=== PATIENT | female | born 1935 | race Caucasian/White ===

== ENCOUNTER → 2018-02-28 | Outpatient (CLI) | payer MEDICARE ==
[~2018-02-28] MED LIST: ACET-2031 PO; ADV100/50 INH; ALB6.7R INH; AMLO-1 PO; AMLO-110 PO; ASPE325 PO; ASPI81TA86 PO; AZIT-101 PO; BUDE10.25 IH; CEFU250 PO; CETI10CA8 PO; CHLOR25 FT; ESTR-32 PO; ESTRADIOL; GUAI600T34 PO; GUALA600 PO; IRO150 PO; LEVA15HF6 IH; LEVO50TA80 PO; LORA10CA3 PO; LOSA100T68 PO; LOSA50TA72 PO; LOVA10TA63 PO; LOVA40TA89 PO; MONT10TA PO; OXYC-966 PO; OXYGEN INH; PAN40 PO; PRED-314 PO; PREDNISONE PO; ROBC PO; TIO18R IH; TURM500C7 PO; VERA180C10 PO; ZITHROMAX; [UNRECOGNIZED DRUG - CODE] OP; [UNRECOGNIZED DRUG - CODE] PO
== END ==
LOC: US 07:05
PROVIDERS: ATTEND Internal Medicine Cardiovascular Disease
DX: I51.7 Cardiomegaly (principal); I34.0 Nonrheumatic mitral (valve) insufficiency; Q21.0 Ventricular septal defect; E66.9 Obesity, unspecified
CPT/HCPCS: 93306

== ENCOUNTER → 2018-03-11 | Outpatient (CLI) | payer MEDICARE ==
--- NOTE | 2018-03-11 15:23 | RADIOLOGY IMAGING REPORT ---
FACILITY: PATIENT NAME: Kaylee Almendarez : 1935 MR: [id number] V: [id number] EXAM DATE: ORDERING PHYSICIAN: HARINI LEE TECHNOLOGIST: Location: [facility] - [place] Patient: Kaylee Almendarez : 1935 Visit/Account:[id number] Date of Sevice: 03/11/2018 CHEST PA AND LAT Indication: COPD Comparison: Chest x-ray 11/24/2014. Findings: Lungs: There is mild hyperinflation and flattening the diaphragms. There is a benign calcified granul tom in the right lower lobe, best seen on the lateral image. The lungs are otherwise clear. Mediastinum/pulmonary vasculature: Heart size and pulmonary vasculature are normal. Bones/soft tissues: There is an old rib fracture, posterior right sixth rib. IMPRESSION: 1. Findings consistent with COPD. 2. Benign calcified granuloma right lower lobe. Report Dictated By: Gary Henriquez at 03/11/2018 2:57 PM Report E-Signed By: Gary Henriquez at 03/11/2018 3:19 PM WSN:[id number]
== END ==
LOC: RAD 13:19
PROVIDERS: ATTEND Internal Medicine
DX: J44.9 Chronic obstructive pulmonary disease, unspecified (principal); R91.8 Other nonspecific abnormal finding of lung field
CPT/HCPCS: 71046

== ENCOUNTER 2018-04-21 15:54 | Emergency (ER) | payer MEDICARE ==
--- NOTE | 2018-04-21 16:05 | ER Report ---
History and Physical Time Seen By MD: 16:04 HPI/ROS CHIEF COMPLAINT: Right shoulder pain HISTORY OF PRESENT ILLNESS: This is an 82-year-old female presents to the emergency department for right shoulder pain. Patient states that she developed some right shoulder pain over the last couple of days, has been taking large amounts of ibuprofen, noticed a large bruise to the right shoulder unsure how this developed. Patient is unsure if she fell has no recollection of falling. Denies headaches or visual changes. Denies chest pain no increased shortness of breath. Patient has a history of COPD, on continuous oxygen. Patient has had steroid injections in the right shoulder, but nothing recent. She has no recollection of a traumatic event. REVIEW OF SYSTEMS: Constitutional: No fever, no chills. Eyes: No discharge. ENT: No sore throat. Cardiovascular: No chest pain, no palpitations. Respiratory: No cough, no shortness of breath. Gastrointestinal: No abdominal pain, no vomiting. Genitourinary: No hematuria. Musculoskeletal: As above. Skin: As above. Neurological: As above. Allergies: Coded Allergies: lactose (Verified Adverse Reaction, Mild, DIARRHEA, 04/21/16) Home Meds Reported Medications Turmeric Root Extract (TURMERIC) 500 Mg Capsule, 500 MG PO DAILY, CAPSULE 04/28/16 Cetirizine Hcl (ZYRTEC) 10 Mg Capsule, 10 MG PO QDAY Y for ALLERGY SYMPTOMS, CAPSULE 04/28/16 Verapamil HCl (Verapamil Sr) 180 Mg Cap24h.pel, 180 MG PO HS 04/21/16 Oxycodone Hcl (ROXICODONE) 15 Mg Tablet, 10 MG PO 04/21/16 Montelukast Sodium (SINGULAIR) 10 Mg Tablet, 1 TAB PO QDAY, TAB 04/21/16 Lovastatin (LOVASTATIN) 40 Mg Tablet, 40 MG PO HS 04/21/16 Losartan Potassium (LOSARTAN POTASSIUM) 50 Mg Tablet, 50 MG PO QDAY 04/21/16 Chlorthalidone (CHLORTHALIDONE) 25 Mg Tab, 25 MG FT, TAB 04/21/16 Budesonide/Formoterol Fumarate (SYMBICORT 80-4.5 MCG INHALER) 10.2 Gm Hfa.aer.ad , 2 PUFF IH BID 04/21/16 Aspirin (ASPIRIN EC) 81 Mg Tablet.dr, 81 MG PO QDAY, TAB 04/21/16 Albuterol Sulfate (PROVENTIL HFA) 6.7 Gm Inh, 1-2 PUFF INH Q4H, INH 04/21/16 Oxygen (Oxygen) 2 L Inha, 2 L INH PRN 12/20/12 Levothyroxine Sodium (Levothyroxine Sodium) 50 Mcg Tablet, 50 MCG PO QAM, 0 Refills 05/02/09 Past Medical/Surgical History The patient has a past medical and surgical history of difficulties remembering things, hypertension, hypercholesterolemia, COPD, continuous oxygen, colonoscopy 3, stress incontinence, D&C, arthritis, fractures, wears glasses, hard of hearing, definite in left ear, bladder sling, tubal ligation, cataract surgery. Reviewed Nurses Notes: Yes Hx Smoking: Yes Smoking Status: Former Smoker Hx Substance Use Disorder: No Hx Alcohol Use: Yes Constitutional Vital Sign - Last 24 Hours 04/21/18 04/21/18 04/21/18 04/21/18 16:07 16:10 16:24 16:30 Temp 97.9 Pulse 67 69 Resp 28 B/P (MAP) 173/103 (126) 173/103 147/81 (103) Pulse Ox 95 97 O2 Delivery Room Air 04/21/18 04/21/18 04/21/18 04/21/18 16:54 17:00 17:05 17:30 Pulse ? B/P (MAP) ???/??? (621) ???/??? (166) 04/21/18 04/21/18 04/21/18 04/21/18 17:35 17:42 17:42 18:00 Pulse 66 59 Resp 19 B/P (MAP) ???/??? (4996) Pulse Ox 96 97 O2 Delivery Nasal Cannula O2 Flow Rate 3.0 04/21/18 04/21/18 04/21/18 04/21/18 18:05 18:11 18:30 18:35 Pulse 60 61 B/P (MAP) 135/57 (83) 132/62 (85) Pulse Ox 96 95 04/21/18 04/21/18 04/21/18 04/21/18 18:40 18:55 19:00 19:10 Pulse ??? 64 67 B/P (MAP) 126/65 (85) Pulse Ox 96 95 95 7/29/18 7/29/18 19:25 19:30 Pulse ??? B/P (MAP) ???/??? (4651) Physical Exam General Appearance: The patient is alert, has no immediate need for airway protection and no signs of toxicity, appears anxious and uncomfortable. Eyes: Pupils equal and round no pallor or injection. EOMs intact. ENT, Mouth: Mucous membranes are moist. Respiratory: There are no retractions, lungs are clear to auscultation. Cardiovascular: Regular rate and rhythm, no murmurs, clicks or rubs. Gastrointestinal: Abdomen is soft and non tender, no masses, bowel sounds normal. Neurological: Alert and oriented 4. Moving all extremities. Following all commands. No focal neuro deficits. Skin: Warm and dry, no rashes. There is a large purplish contusion to the right shoulder into the right bicep. Pain to the right shoulder and proximal humerus on palpation, no crepitus, step-offs or obvious deformities. Musculoskeletal: Neck is supple non tender. Extremities are nontender, nonswollen and have full range of motion. DIFFERENTIAL DIAGNOSIS: After history and physical exam differential diagnosis was considered for contusion, shoulder dislocation and shoulder fracture, subdural bleed and cervical spine fracture. Medical Decision Making Data Points Result Diagram: 04/21/18 1723 04/21/18 1723 Laboratory Hematology Test 04/21/18 17:23 Red Blood Count 3.51 M/uL (4.17-5.56) Mean Corpuscular Volume 98.9 fL (80.0-96.0) Mean Corpuscular Hemoglobin 33.9 pg (26.0-33.0) Mean Corpuscular Hemoglobin Concent 34.3 g/dL (32.0-36.0) Red Cell Distribution Width 13.9 % (11.5-14.5) Mean Platelet Volume 8.6 fL (7.2-11.1) Neutrophils (%) (Auto) 70.9 % (39.4-72.5) Lymphocytes (%) (Auto) 18.0 % (17.6-49.6) Monocytes (%) (Auto) 7.4 % (4.1-12.4) Eosinophils (%) (Auto) 2.9 % (0.4-6.7) Basophils (%) (Auto) 0.8 % (0.3-1.4) Nucleated RBC Relative Count (auto) 0.0 /100WBC Neutrophils # (Auto) 5.7 K/uL (2.0-7.4) Lymphocytes # (Auto) 1.4 K/uL (1.3-3.6) Monocytes # (Auto) 0.6 K/uL (0.3-1.0) Eosinophils # (Auto) 0.2 K/uL (0.0-0.5) Basophils # (Auto) 0.1 K/uL (0.0-0.1) Nucleated RBC Absolute Count (auto) 0.00 K/uL Sodium Level 139 mmol/L (137-145) Potassium Level 5.1 mmol/L (3.5-5.0) Chloride Level 104 mmol/L (98-107) Carbon Dioxide Level 24 mmol/L (22-31) Blood Urea Nitrogen 36 mg/dl (7-18) Creatinine 1.70 mg/dl (0.52-1.04) Glomerular Filtration Rate Calc 28.8 Random Glucose 108 mg/dl (75-110) Calcium Level 8.7 mg/dl (8.4-10.2) Total Bilirubin 0.4 mg/dl (0.2-1.3) Aspartate Amino Transf (AST/SGOT) 18 U/L (0-35) Alanine Aminotransferase (ALT/SGPT) 22 U/L (0-56) Alkaline Phosphatase 81 U/L (0-126) Total Protein 7.1 g/dl (6.3-8.2) Albumin 3.9 g/dl (3.5-5.0) Chemistry Test 04/21/18 17:23 White Blood Count 8.0 k/uL (4.5-11.0) Red Blood Count 3.51 M/uL (4.17-5.56) Hemoglobin 11.9 g/dL (12.0-16.0) Hematocrit 34.7 % (34.0-47.0) Mean Corpuscular Volume 98.9 fL (80.0-96.0) Mean Corpuscular Hemoglobin 33.9 pg (26.0-33.0) Mean Corpuscular Hemoglobin Concent 34.3 g/dL (32.0-36.0) Red Cell Distribution Width 13.9 % (11.5-14.5) Platelet Count 197 K/uL (150-450) Mean Platelet Volume 8.6 fL (7.2-11.1) Neutrophils (%) (Auto) 70.9 % (39.4-72.5) Lymphocytes (%) (Auto) 18.0 % (17.6-49.6) Monocytes (%) (Auto) 7.4 % (4.1-12.4) Eosinophils (%) (Auto) 2.9 % (0.4-6.7) Basophils (%) (Auto) 0.8 % (0.3-1.4) Nucleated RBC Relative Count (auto) 0.0 /100WBC Neutrophils # (Auto) 5.7 K/uL (2.0-7.4) Lymphocytes # (Auto) 1.4 K/uL (1.3-3.6) Monocytes # (Auto) 0.6 K/uL (0.3-1.0) Eosinophils # (Auto) 0.2 K/uL (0.0-0.5) Basophils # (Auto) 0.1 K/uL (0.0-0.1) Nucleated RBC Absolute Count (auto) 0.00 K/uL Glomerular Filtration Rate Calc 28.8 Calcium Level 8.7 mg/dl (8.4-10.2) Total Bilirubin 0.4 mg/dl (0.2-1.3) Aspartate Amino Transf (AST/SGOT) 18 U/L (0-35) Alanine Aminotransferase (ALT/SGPT) 22 U/L (0-56) Alkaline Phosphatase 81 U/L (0-126) Total Protein 7.1 g/dl (6.3-8.2) Albumin 3.9 g/dl (3.5-5.0) EKG/Imaging EKG Interpretation 12 lead EKG: Time of EKG 1903. Rhythm: Sinus bradycardia, ventricular rate 59 bpm. [place]: normal QRS: normal ST segments: No ST depression or elevation identified. No indication of potassium toxicity. No significant changes from the 01/09/[address] cervical spine without IV contrast HISTORY: Fall. COMPARISON: None. TECHNIQUE: Axial images were obtained from the skull base through the upper thoracic spine without IV contrast administration. Coronal and sagittal reformatted images were obtained from the axial source data. One of the following dose optimization techniques was utilized in the performance of this exam: Automated exposure control; adjustment of the mA and/ or kV according to the patient's size; or use of an iterative reconstruction technique. Specific details can be referenced in the facility's radiology CT exam operational policy. FINDINGS: Alignment: Remaining of the normal cervical lordosis, likely related to degenerative change. Cranio-cervical junction: Negative. Vertebral bodies: Negative. Posterior elements: Negative. Hardware: None. Disc Spaces: Multilevel moderate to advanced degenerative disc disease and facet arthropathy with mild/moderate multifocal foraminal narrowing Soft tissues: Negative. Visualized upper chest: Emphysematous changes within the visualized lung apices. IMPRESSION: 1. No acute fracture of the cervical spine. 2. Multilevel moderate to advanced degenerative changes within the cervical spine. Report Dictated By: Wiley Petersen MD at 04/21/2018 5:28 PM Report E-Signed By: Wiley Petersen MD at 04/21/2018 5:30 PM WSN:[email or web address] Location: [facility] Patient: Kaylee Almendarez : 1935 Visit/Account:[id number] Date of Sevice: 04/21/2018 CT BRAIN WITHOUT CONTRAST CLINICAL INDICATION: Fall with question will head injury. COMPARISON: No priors TECHNIQUE: Contiguous axial CT images of the brain were obtained without IV contrast. Sagittal and coronal reformatted images were also performed. One of the following dose optimization techniques was utilized in the performance of this exam: Automated exposure control; adjustment of the mA and/ or kV according to the patient's size; or use of an iterative reconstruction technique. Specific details can be referenced in the facility's radiology CT exam operational policy. RESULT: BRAIN: Prominence of the ventricles and sulci is consistent with atrophy. There are areas of low attenuation in the periventricular and subcortical white matter which are nonspecific, but suggestive of chronic microvascular ischemic change. The brainstem and cerebellum appear normal. The basilar cisterns appear normal. There is no mass, acute infarct, hemorrhage or shift of midline. Vascular atherosclerotic calcifications are present. PARANASAL SINUSES & MASTOIDS: Well aerated. SKULL BASE & CRANIUM: Visualized osseous structures are intact. SOFT TISSUES: Mild edema/hematoma within the lower frontal soft tissues. Otherwise negative.. IMPRESSION: 1. No acute findings. 2. Mild edema/hematoma within the lower frontal soft tissues 3. Findings of advanced chronological age. Report Dictated By: Wiley Petersen MD at 04/21/2018 5:23 PM Report E-Signed By: Wiley Petersen MD at 04/21/2018 5:26 PM WSN:[id number] Location: [facility] Patient: Kaylee Almendarez : 1935 Visit/Account:[id number] Date of Sevice: 04/21/2018 2 views right humerus Indication: Comparison: None Available FINDINGS: There is no evidence of fracture, dislocation, or acute osseous abnormality of the right humerus. There is no focal soft tissue abnormality. No evidence of radiopaque foreign body. IMPRESSION: No acute osseous abnormality of the right humerus Report Dictated By: Wiley Petersen MD at 04/21/2018 5:32 PM Report E-Signed By: Wiley Petersen MD at 04/21/2018 5:33 PM WSN:[id number] Location: [facility] Patient: Kaylee Almendarez : 1935 Visit/Account:[id number] Date of Sevice: 04/21/2018 3 views right shoulder Indication: Right shoulder pain and bruising. Comparison: Unavailable Findings: There is no acute fracture-dislocation of the right glenohumeral joint. Mild/moderate degenerative changes of the right glenohumeral and acromial clavicular joints. There is a chronic healed right rib fracture. Calcification within the aortic knob. IMPRESSION: 1. No acute osseous abnormality right shoulder. Report Dictated By: Wiley Petersen MD at 04/21/2018 5:30 PM Report E-Signed By: Wiley Petersen MD at 04/21/2018 5:32 PM WSN:[id number] ED Course/Re-evaluation Clinical Indication for ER IV: Hydration, IV Access ED Course The patient was admitted to room. A history and physical were obtained. Differential diagnoses were considered. An IV was started. A CBC, CMP were obtained. Chemistries showing potassium 5.1, V1 36, creatinine 1.7. The patient states she has been taking a lot of NSAIDs lately, patient states that she's had issues with her kidneys in the past secondary to ingestion of NSAIDs. I did tell the patient to stop taking NSAIDs and she can take Tylenol as needed for pain. With the potassium of 5.1 EKG showing no changes from December 2012 EKG. X- ray of the right humerus right shoulder were negative for any acute osseous abnormalities. CT of the head and neck were negative for any acute findings. I did review these results with the patient and her . I did tell them that the shoulder pain could be the known arthritis in her shoulder. The patient was given 4 mg IV morphine, 4 mg IV Zofran. Continue to have pain and was given 50 g IV fentanyl, continued to have pain another 50 g IV fentanyl did seem to improve patient's discomfort. Patient was placed in a sling, patient states that after the sling was placed she did have significant relief from her discomfort. I did recommend that the patient follows up with [facility] and/or her primary care provider within one week for reevaluation and possible injection of the right shoulder. The patient was in agreement with this plan care and discharged home. Decision to Disposition Date: Apr 21, 2018 Decision to Disposition Time: 19:27 Depart Departure Latest Vital Signs Vital Signs Date Time Temp Pulse Resp B/P (MAP) Pulse Ox O2 Delivery O2 Flow Rate FiO2 04/21/18 19:30 ???/??? (1665) 04/21/18 19:25 ??? 04/21/18 19:10 95 04/21/18 17:42 Nasal Cannula 3.0 04/21/18 17:42 19 04/21/18 16:10 97.9 Impression: Primary Impression: Right shoulder pain Additional Impression: Contusion of right shoulder Condition: Improved Disposition: HOME OR SELF-CARE Referrals: FRANCI ECHEVARRIA MD (PCP) Patient Instructions: Contusion in Adults (ED), Shoulder Pain (ED) Additional Instructions: The right shoulder and upper arm x-rays were negative for any acute findings. The head and neck CAT scans were negative for any acute findings. Drink plenty of water. Get plenty of rest. Wear the sling for comfort. A voided NSAIDs until you follow up with your primary care provider. Take 650 mg of Tylenol every 8 hours as needed for pain. Follow-up with [facility] or your primary care provider within one week for reevaluation of the right shoulder. Return to the emergency department for any other concerns or worsening symptoms. Problem Qualifiers Primary Impression: Right shoulder pain Chronicity: unspecified Qualified Codes: M25.511 - Pain in right shoulder Additional Impression: Contusion of right shoulder Encounter type: initial encounter Qualified Codes: S40.011A - Contusion of right shoulder, initial encounter TEENA DIXON [employer] DEVELOPMENT CONSULTANT-BC Apr 21, 2018 16:05
[2018-04-21] MEDS ORDERED: ONDANSETRON 4 MG/2 ML VIAL IVP ONE (16:10)
[2018-04-21] MEDS ORDERED: MORPHINE 4 MG/ML SDV IVP ONE (16:10)
[2018-04-21] MEDS ORDERED: fentaNYL CITR 100 MCG/2 ML AMP IVP ONE ×2 (17:20→18:05)
--- NOTE | 2018-04-21 17:29 | RADIOLOGY IMAGING REPORT ---
FACILITY: [facility] [place] PATIENT NAME: Kaylee Almendarez : 1935 MR: [id number] V: [id number] EXAM DATE: ORDERING PHYSICIAN: TEENA DIXON TECHNOLOGIST: Location: [facility] Patient: Kaylee Almendarez : 1935 Visit/Account:[id number] Date of Sevice: 04/21/2018 CT BRAIN WITHOUT CONTRAST CLINICAL INDICATION: Fall with question will head injury. COMPARISON: No priors TECHNIQUE: Contiguous axial CT images of the brain were obtained without IV contrast. Sagittal and co alyson reformatted images were also performed. One of the following dose optimization techniques was utilized in the performance of this exam: Autom ated exposure control; adjustment of the mA and/or kV according to the patient's size; or use of an i terative reconstruction technique. Specific details can be referenced in the facility's radiology C T exam operational policy. RESULT: BRAIN: Prominence of the ventricles and sulci is consistent with atrophy. There are areas of low atte nuation in the periventricular and subcortical white matter which are nonspecific, but suggestive of chronic microvascular ischemic change. The brainstem and cerebellum appear normal. The basilar ciste rns appear normal. There is no mass, acute infarct, hemorrhage or shift of midline. Vascular atherosc lerotic calcifications are present. PARANASAL SINUSES & MASTOIDS: Well aerated. SKULL BASE & CRANIUM: Visualized osseous structures are intact. SOFT TISSUES: Mild edema/hematoma within the lower frontal soft tissues. Otherwise negative.. IMPRESSION: 1. No acute findings. 2. Mild edema/hematoma within the lower frontal soft tissues 3. Findings of advanced chronological age. Report Dictated By: Wiley Petersen MD at 04/21/2018 5:23 PM Report E-Signed By: Wiley Petersen MD at 04/21/2018 5:26 PM WSN:[id number]
--- NOTE | 2018-04-21 17:33 | RADIOLOGY IMAGING REPORT ---
FACILITY: [facility] PATIENT NAME: Kaylee Almendarez : 1935 MR: [id number] V: [id number] EXAM DATE: ORDERING PHYSICIAN: TEENA DIXON TECHNOLOGIST: Location: [facility] Patient: Kaylee Almendarez : 1935 Visit/Account:[id number] Date of Sevice: 04/21/2018 EXAMINATION: CT cervical spine without IV contrast HISTORY: Fall. COMPARISON: None. TECHNIQUE: Axial images were obtained from the skull base through the upper thoracic spine without I V contrast administration. Coronal and sagittal reformatted images were obtained from the axial [facility] e data. One of the following dose optimization techniques was utilized in the performance of this exam: Autom ated exposure control; adjustment of the mA and/or kV according to the patient's size; or use of an i terative reconstruction technique. Specific details can be referenced in the facility's radiology C T exam operational policy. FINDINGS: Alignment: Remaining of the normal cervical lordosis, likely related to degenerative change. Cranio-cervical junction: Negative. Vertebral bodies: Negative. Posterior elements: Negative. Hardware: None. Disc Spaces: Multilevel moderate to advanced degenerative disc disease and facet arthropathy with mil d/moderate multifocal foraminal narrowing Soft tissues: Negative. Visualized upper chest: Emphysematous changes within the visualized lung apices. IMPRESSION: 1. No acute fracture of the cervical spine. 2. Multilevel moderate to advanced degenerative changes within the cervical spine. Report Dictated By: Wiley Petersen MD at 04/21/2018 5:28 PM Report E-Signed By: Wiley Petersen MD at 04/21/2018 5:30 PM WSN:[id number]
--- NOTE | 2018-04-21 17:36 | RADIOLOGY IMAGING REPORT ---
FACILITY: [facility] PATIENT NAME: Kaylee Almendarez : 1935 MR: [id number] V: [id number] EXAM DATE: ORDERING PHYSICIAN: TEENA DIXON TECHNOLOGIST: Location: [facility] Patient: Kaylee Almendarez : 1935 Visit/Account:[id number] Date of Sevice: 04/21/2018 3 views right shoulder Indication: Right shoulder pain and bruising. Comparison: Unavailable Findings: There is no acute fracture-dislocation of the right glenohumeral joint. Mild/moderate degenerative changes of the right glenohumeral and acromial clavicular joints. There is a chronic healed right rib fracture. Calcification within the aortic knob. IMPRESSION: 1. No acute osseous abnormality right shoulder. Report Dictated By: Wiley Petersen MD at 04/21/2018 5:30 PM Report E-Signed By: Wiley Petersen MD at 04/21/2018 5:32 PM WSN:[id number]
--- NOTE | 2018-04-21 17:37 | RADIOLOGY IMAGING REPORT ---
FACILITY: [facility] PATIENT NAME: Kaylee Almendarez : 1935 MR: [id number] V: [id number] EXAM DATE: ORDERING PHYSICIAN: TEENA DIXON TECHNOLOGIST: Location: [facility] [place] Patient: Kaylee Almendarez : 1935 Visit/Account:[id number] Date of Sevice: 04/21/2018 2 views right humerus Indication: Comparison: None Available FINDINGS: There is no evidence of fracture, dislocation, or acute osseous abnormality of the right humerus. There is no focal soft tissue abnormality. No evidence of radiopaque foreign body. IMPRESSION: No acute osseous abnormality of the right humerus Report Dictated By: Wiley Petersen MD at 04/21/2018 5:32 PM Report E-Signed By: Wiley Petersen MD at 04/21/2018 5:33 PM WSN:[id number]
[2018-04-21] MEDS ORDERED: ALBUTEROL/IPRATROPIUM 3 ML NEB NEB ONE (17:40)
[2018-04-21 17:46] LABS: PLATELET COUNT, AUTOMATED 197 K/uL (150-450)
--- NOTE | 2018-04-21 19:11 | EKG ---
FACILITY: [facility] PATIENT NAME: CAROLE LEON : [id number] MR: [id number] V: [id number] EXAM DATE: ORDERING PHYSICIAN: TEENA DIXON TECHNOLOGIST: BRANDON Test Reason : HIGH K+ Blood Pressure : / mmHG Vent. Rate : 059 BPM Atrial Rate : 059 BPM P-R Int : 180 ms QRS Dur : 086 ms QT Int : 432 ms P-R-T Axes : 063 063 092 degrees QTc Int : 427 ms Sinus bradycardia Nonspecific T wave abnormality Abnormal ECG Confirmed by BRYAN COATES ([id number]) on 04/21/2018 9:23:34 PM Referred By: Confirmed By:BRYAN COATES
== END 2018-04-21 19:35 | disposition home or self-care (01) ==
LOC: ER 16:08
DX: S40.011A Contusion of right shoulder, initial encounter (principal); I10 Essential (primary) hypertension; E78.00 Pure hypercholesterolemia, unspecified; J44.9 Chronic obstructive pulmonary disease, unspecified; Z87.891 Personal history of nicotine dependence; Z79.899 Other long term (current) drug therapy; Z04.3 Encounter for examination and observation following other accident; W19.XXXA Unspecified fall, initial encounter
CPT/HCPCS: 36415; 70450; 72125; 73030; 73060; 85025; 93005; 94640; 96374; 96375; 96376; 99284; A4565; J2270; J2405; J3010; J7620; 82040; 82247; 82310; 82374; 82435; 82565; 82947; 84075; 84132; 84155; 84295; 84450; 84460; 84520

== ENCOUNTER → 2019-03-03 | Outpatient (CLI) | payer MEDICARE ==
[~2019-03-03] MED LIST changes: -LOSA50TA72 PO; +LOSA50TA80 PO
== END ==
LOC: RESP 01:11
PROVIDERS: ATTEND Internal Medicine Cardiovascular Disease
DX: I51.7 Cardiomegaly (principal); I34.0 Nonrheumatic mitral (valve) insufficiency
CPT/HCPCS: 93306

== ENCOUNTER 2019-04-14 09:35 | Inpatient (IN) | payer MEDICARE ==
[~2019-04-14 09:35] MED LIST changes: -FURO-45 PO; -IPRA3AMP10 INH; -MONT10TA4 PO
--- NOTE | 2019-04-14 10:02 | ER Report ---
History and Physical Time Seen By MD: 09:59 Hx. of Stated Complaint: FALL YESTERDAY - RIGHT HIP PAIN. WOKE UP WITH INCREASED SOB HPI/ROS CHIEF COMPLAINT: Fall, right-sided hip pain HISTORY OF PRESENT ILLNESS: Patient is an 83-year-old female here with complaints of fall, right-sided hip pain. Patient reportedly fell last night and has had difficulty ambulating ever since in spite of help. Patient was neurovascularly intact in distal extremity with good sensation and good capillary refill. Patient denies further injuries at this time. Patient is hemodynamically stable. REVIEW OF SYSTEMS: Constitutional: No fever, no chills. Eyes: No discharge. ENT: No sore throat. Cardiovascular: No chest pain, no palpitations. Respiratory: No cough, no shortness of breath. Gastrointestinal: No abdominal pain, no vomiting. Genitourinary: No hematuria. Musculoskeletal: Right hip and pelvic pain Skin: No rashes. Neurological: Neurovascular exam intact in the distal extremities, alert and oriented Allergies: Coded Allergies: lactose (Verified Adverse Reaction, Mild, DIARRHEA, 04/14/19) Home Meds Reported Medications Cetirizine Hcl (ZYRTEC) 10 Mg Capsule, 10 MG PO QDAY PRN for ALLERGY SYMPTOMS, CAPSULE 04/28/16 Verapamil HCl (Verapamil Sr) 180 Mg Cap24h.pel, 180 MG PO HS 04/21/16 Oxycodone Hcl (ROXICODONE) 15 Mg Tablet, 10 MG PO 04/21/16 Montelukast Sodium (SINGULAIR) 10 Mg Tablet, 1 TAB PO QDAY, TAB 04/21/16 Lovastatin (LOVASTATIN) 40 Mg Tablet, 40 MG PO HS 04/21/16 Losartan Potassium (LOSARTAN POTASSIUM) 50 Mg Tablet, 50 MG PO QDAY 04/21/16 Chlorthalidone (CHLORTHALIDONE) 25 Mg Tab, 25 MG FT, TAB 04/21/16 Budesonide/Formoterol Fumarate (SYMBICORT 80-4.5 MCG INHALER) 10.2 Gm Hfa.aer.ad, 2 PUFF IH BID 04/21/16 Aspirin (ASPIRIN EC) 81 Mg Tablet.dr, 81 MG PO QDAY, TAB 04/21/16 Albuterol Sulfate (PROVENTIL HFA) 6.7 Gm Inh, 1-2 PUFF INH Q4H, INH 04/21/16 Oxygen (Oxygen) 2 L Inha, 2 L INH PRN 12/20/12 Levothyroxine Sodium (Levothyroxine Sodium) 50 Mcg Tablet, 50 MCG PO QAM, 0 Refills 05/02/09 Discontinued Reported Medications Turmeric Root Extract (TURMERIC) 500 Mg Capsule, 500 MG PO DAILY, CAPSULE 04/28/16 Hx Smoking: Yes Smoking Status: Former Smoker Hx Substance Use Disorder: No Hx Alcohol Use: Yes Constitutional Vital Sign - Last 24 Hours 04/14/19 04/14/19 04/14/19 04/14/19 09:35 09:37 09:50 09:58 Temp 98.7 Pulse 70 72 75 Resp 13 16 53 B/P (MAP) 119/59 Pulse Ox 97 96 97 O2 Delivery Room Air O2 Flow Rate 2.0 04/14/19 04/14/19 04/14/19 04/14/19 10:05 10:20 10:35 10:50 Pulse 140 75 72 72 Resp 19 43 11 23 Pulse Ox 81 94 93 95 04/14/19 04/14/19 04/14/19 04/14/19 11:05 11:20 11:25 11:30 Pulse 71 70 72 Resp 20 18 19 B/P (MAP) ???/??? (5815) Pulse Ox 92 92 94 04/14/19 04/14/19 04/14/19 04/14/19 11:40 11:55 12:10 12:13 Pulse 71 ??? 72 Resp 13 39 B/P (MAP) 97/54 (68) Pulse Ox 93 82 91 04/14/19 04/14/19 04/14/19 04/14/19 12:20 12:25 12:30 12:45 Pulse 67 66 67 Resp 33 49 17 B/P (MAP) 90/52 (65) Pulse Ox 98 95 94 04/14/19 04/14/19 04/14/19 04/14/19 13:00 13:15 13:24 13:29 Pulse 66 64 66 Resp 17 20 20 B/P (MAP) 102/57 (72) Pulse Ox 94 96 94 04/14/19 04/14/19 04/14/19 04/14/19 13:30 13:44 13:59 14:00 Pulse 68 69 Resp 28 30 B/P (MAP) 95/50 (65) 99/52 (68) Pulse Ox 98 96 04/14/19 14:14 Pulse 67 Resp 37 Pulse Ox 94 Physical Exam General Appearance: The patient is alert, has no immediate need for airway protection and no signs of toxicity. Uncomfortable Eyes: Pupils equal and round no pallor or injection. ENT, Mouth: Mucous membranes are moist. Respiratory: There are no retractions, lungs are clear to auscultation. Cardiovascular: Regular rate and rhythm. Gastrointestinal: Abdomen is soft and non tender, no masses, bowel sounds normal. Neurological: Neurovascular exam intact in the distal extremity Skin: Warm and dry, no rashes. Musculoskeletal: Neck is supple non tender. Tenderness on palpation of the proximal right hip and right pelvis. DIFFERENTIAL DIAGNOSIS: After history and physical exam differential diagnosis was considered for fracture, contusion, dislocation, intra-abdominal injury. Medical Decision Making Data Points Result Diagram: 04/14/19 0949 04/14/19 0949 Laboratory Hematology Test 04/14/19 09:49 White Blood Count 9.2 k/uL (4.5-11.0) Red Blood Count 2.67 M/uL (4.17-5.56) L Hemoglobin 8.9 g/dL (12.0-16.0) *L Hematocrit 26.2 % (34.0-47.0) *L Mean Corpuscular Volume 98.3 fL (80.0-96.0) H Mean Corpuscular Hemoglobin 33.6 pg (26.0-33.0) H Mean Corpuscular Hemoglobin Concent 34.2 g/dL (32.0-36.0) Red Cell Distribution Width 15.0 % (11.5-14.5) H Platelet Count 276 K/uL (150-450) Mean Platelet Volume 8.3 fL (7.2-11.1) Neutrophils (%) (Auto) 83.5 % (39.4-72.5) H Lymphocytes (%) (Auto) 9.8 % (17.6-49.6) L Monocytes (%) (Auto) 6.0 % (4.1-12.4) Eosinophils (%) (Auto) 0.2 % (0.4-6.7) L Basophils (%) (Auto) 0.5 % (0.3-1.4) Nucleated RBC Relative Count (auto) 0.1 /100WBC Neutrophils # (Auto) 7.7 K/uL (2.0-7.4) H Lymphocytes # (Auto) 0.9 K/uL (1.3-3.6) L Monocytes # (Auto) 0.6 K/uL (0.3-1.0) Eosinophils # (Auto) 0.0 K/uL (0.0-0.5) Basophils # (Auto) 0.0 K/uL (0.0-0.1) Nucleated RBC Absolute Count (auto) 0.01 K/uL Chemistry Test 04/14/19 09:49 Sodium Level 138 mmol/L (137-145) Potassium Level 4.1 mmol/L (3.5-5.0) Chloride Level 100 mmol/L (98-107) Carbon Dioxide Level 29 mmol/L (22-31) Blood Urea Nitrogen 48 mg/dl (7-18) Creatinine 1.80 mg/dl (0.52-1.04) Glomerular Filtration Rate Calc 26.9 Random Glucose 107 mg/dl (75-110) Calcium Level 9.0 mg/dl (8.4-10.2) Total Bilirubin 0.8 mg/dl (0.2-1.3) Aspartate Amino Transf (AST/SGOT) 29 U/L (0-35) Alanine Aminotransferase (ALT/SGPT) 40 U/L (0-56) Alkaline Phosphatase 111 U/L (0-126) Troponin I 0.034 ng/ml Total Protein 6.1 g/dl (6.3-8.2) Albumin 3.2 g/dl (3.5-5.0) EKG/Imaging Imaging PATIENT NAME: Kaylee Almendarez : 1935 MR: [id number] V: [id number] EXAM DATE: [id number] ORDERING PHYSICIAN: GAIL GILLIAM TECHNOLOGIST: Location: [facility] Patient: Kaylee Almendarez : 1935 Visit/Account:[id number] Date of Sevice: 04/14/2019 CT abdomen and pelvis without contrast Indication: Fall. Pelvic fracture. Comparison: Pelvic CT done earlier in the day. Technique: Axial CT images are obtained through the abdomen and pelvis. Reformatted coronal and sagittal images were reviewed. IV contrast was not administered. One of the following dose optimization techniques was utilized in the performance of this exam: automated exposure control; adjustment of the mA and/or kV according to the patient's size; or use of an iterative reconstruction technique. Specific details can be referenced in the facility's radiology CT exam operational policy. Findings: Lower lung frazier: Calcified granuloma in the right lower lobe. Otherwise unremarkable. Evaluation of the solid organs of the abdomen is limited without IV contrast. Liver: No focal parenchymal abnormality of the liver. Biliary: Gallbladder appears unremarkable as well as the intra and extra hepatic biliary system. Pancreas: No focal abnormality. Spleen: Normal appearance. Adrenal glands: Unremarkable. Kidneys / retroperitoneum: No evidence of nephrolithiasis or hydronephrosis. No focal abnormality. Bowel / peritoneum / mesenteries: Diverticula seen along the descending and sigmoid colon without pericolonic inflammation. The colon shows no focal normality. The appendix is normal. Stomach is unremarkable and mainly decompressed. No free air, free fluid, fluid collections or areas of inflammation. Small umbilical hernia containing fat. Lymph node assessment: No pathologic adenopathy identified. Pelvic structures: Appear unremarkable. Vessels: Mild atherosclerotic calcifications seen throughout a nonaneurysmal abdominal aorta and branches. Musculoskeletal / Body wall: The right ilium does show a mildly comminuted fracture without significant displacement. The fracture extends to the superior SI joint without disruption of the joint. The sacrum is intact. There is a mildly comminuted right superior and inferior rami fractures. The superior rami fracture does show mild medial displacement of butterfly fragment. The acetabulum appears intact. The femoral head and neck. Intact. No other indication of fractures. No dislocations. Degenerative change seen in the spine and both hips. No aggressive bony lesions. IMPRESSION: 1. Fracture of the right iliac wing, superior and inferior rami as above. There is no fracture of the acetabulum or proximal right femur. Degenerative change seen in both hips and lumbar spine. 2. No acute intra-abdominal or pelvic abnormality. 3. Diverticulosis without radiographic indication diverticulitis. PATIENT NAME: Kaylee Almendarez : 1935 MR: [id number] V: [id number] EXAM DATE: ORDERING PHYSICIAN: GAIL GILLIAM TECHNOLOGIST: Location: [facility] Patient: Kaylee Almendarez : 1935 Visit/Account:[id number] Date of Sevice: 04/14/2019 CT of the osseous pelvis without contrast Indication: Fall. Pelvic fracture. Comparison: None available. Technique: Axial CT images were obtained through the pelvis. Reformatted coronal and sagittal images were reviewed. One of the following dose optimization techniques was utilized in the performance of this exam: Automated exposure control; adjustment of the mA and/or kV according to the patient's size; or use of an iterative reconstruction technique. Specific details can be referenced in the facility's radiology CT exam operational policy. Findings: There are acute right superior and inferior pubic rami fractures identified. There is inferior displacement of the more medial aspects of the pubic rami at the fracture sites. No significant hematoma is identified along the fracture site. The pubic symphysis remains appropriately aligned with degenerative changes. The right sacroiliac joint is normally aligned along its visualized portion. On the very edge of the [id number], there is a fracture line identified involving the anterior cortex of the right iliac wing. See today's CT scan report of the abdomen and pelvis for further detail concerning the iliac wing fracture. No extension is seen to the acetabulum. There are moderate severity changes of right hip joint osteoarthritis identified. No proximal femur fracture is seen. There is no joint effusion. No inguinal adenopathy. Mild atrophy involves the gluteus minimus and gluteus medius muscles. Within the pelvis, no free fluid is seen. There are sigmoid colon diverticula. IMPRESSION: 1. Acute right superior and inferior pubic rami fractures with inferior displacement of the more medial fracture fragments. 2. Right iliac wing fracture seen on the edge of the [id number]. This is incompletely evaluated. No extension is seen to the acetabulum. See today's abdominal pelvic CT scan report for further detail. 3. Right hip joint osteoarthritis. Report Dictated By: Anish Collazo at 04/14/2019 12:47 PM Report E-Signed By: Anish Collazo at 04/14/2019 12:58 PM PATIENT NAME: Kaylee Almendarez : 1935 MR: [id number] V: [id number] EXAM DATE: ORDERING PHYSICIAN: GAIL GILLIAM TECHNOLOGIST: Location: [facility] Patient: Kaylee Almendarez : 1935 Visit/Account:[id number] Date of Sevice: 04/14/2019 Technique: AP of the pelvis and crosstable lateral the right hip was obtained . The initial crosstable lateral view is incorrectly labeled as the left hip HISTORY: right hip pain Comparison studies: None FINDINGS: Noted are acute, displaced fractures involving the right superior and inferior cubic ramus. The right superior pubic ramus fracture likely extends into the acetabulum. Symphysis or sacroiliac diastases. The alignment of the right hip is grossly preserved. Evaluation of the fracture on the cross table lateral view is limited due to body habitus. IMPRESSION: 1. Acute displaced fractures involving the right superior and inferior pubic ramus. The superior pubic ramus fracture likely extends into the acetabulum. Due to body habitus evaluation of the crosstable lateral view of the hip is limited. CT should be considered for additional characterization. PATIENT NAME: Kaylee Almendarez : 1935 MR: [id number] V: [id number] EXAM DATE: [id number] ORDERING PHYSICIAN: GAIL GILLIAM TECHNOLOGIST: Location: [facility] Patient: Kaylee Almendarez : 1935 Visit/Account:[id number] Date of Sevice: 04/14/2019 Technique: CHEST SINGLE AP HISTORY: RIGHT HIP PAIN COMPARISON: March 11, 2018 Findings: The lungs are clear. Unchanged granuloma overlies the medial right lung base. No pleural effusion or pneumothorax. The cardiomediastinal silhouette is unchanged. Vertically warranted lucency is noted within the right third rib; likely chronic. Chronic right-sided rib fractures noted Impression: 1. No acute cardiopulmonary process. 2. Chronic right-sided rib fractures. ED Course/Re-evaluation ED Course Patient is an 83-year-old female here with complaints of fall, right proximal hip and pelvic pain after a fall last night. Patient is neurovascularly intact in the distal lower extremity however she does have significant pain with range of motion attempts in the proximal right lower extremity. CT imaging of the abdomen pelvis, hip showed a superior and inferior ramus fracture with right iliac wing fracture as well. Acetabulum was intact. I discussed the patient with Dr. Zhong with orthopedics who recommended weightbearing as tolerated, no surgical intervention warranted at this time. I discussed these findings with the patient the patient's and attempted to ambulate the patient however she was unable to even tolerate a seated position due to pain so I discussed the patient with Dr. Benavidez to admit the patient to the hospitalist service with likely need for rehabilitation and physical therapy. Patient was hemodynamically stable at time of admission. Decision to Disposition Date: Apr 14, 2019 Decision to Disposition Time: 15:00 Depart Departure Latest Vital Signs Vital Signs Date Time Temp Pulse Resp B/P (MAP) Pulse Ox O2 Delivery O2 Flow Rate FiO2 04/14/19 14:14 67 37 94 04/14/19 14:00 99/52 (68) 04/14/19 09:58 2.0 04/14/19 09:37 98.7 Room Air Impression: Primary Impression: Pelvic fracture Additional Impression: Pubic ramus fracture Condition: Condition Unchanged Disposition: Admitted from ER Referrals: FRANCI ECHEVARRIA MD (PCP) Problem Qualifiers GAIL GILLIAM DO Apr 14, 2019 10:02
[2019-04-14 10:05] LABS: PLATELET COUNT, AUTOMATED 276 K/uL (150-450)
--- NOTE | 2019-04-14 10:08 | EKG ---
FACILITY: [facility] [place] PATIENT NAME: CAROLE LEON : [id number] MR: [id number] V: [id number] EXAM DATE: ORDERING PHYSICIAN: GAIL GILLIAM TECHNOLOGIST: Test Reason : Blood Pressure : / mmHG Vent. Rate : 068 BPM Atrial Rate : 068 BPM P-R Int : 152 ms QRS Dur : 080 ms QT Int : 438 ms P-R-T Axes : 037 045 083 degrees QTc Int : 465 ms Sinus rhythm Possible left ventricular hypertrophy ST depression lateral leads Abnormal ECG Confirmed by MICHELLE PATEL ([id number]) on 04/14/2019 12:52:01 PM Referred By: TAWANA Confirmed By:MICHELLE PATEL
--- NOTE | 2019-04-14 11:10 | RADIOLOGY IMAGING REPORT ---
FACILITY: [facility] [place] PATIENT NAME: Kaylee Almendarez : 1935 MR: [id number] V: [id number] EXAM DATE: ORDERING PHYSICIAN: GAIL GILLIAM TECHNOLOGIST: Location: [facility] [place] Patient: Kaylee Almendarez : 1935 Visit/Account:[id number] Date of Sevice: 04/14/2019 Technique: CHEST SINGLE AP HISTORY: RIGHT HIP PAIN COMPARISON: March 11, 2018 Findings: The lungs are clear. Unchanged granuloma overlies the medial right lung base. No pleural effusion or pneumothorax. The cardiomediastinal silhouette is unchanged. Vertically warranted lucen cy is noted within the right third rib; likely chronic. Chronic right-sided rib fractures noted Impression: 1. No acute cardiopulmonary process. 2. Chronic right-sided rib fractures. Report Dictated By: Ishaan Guido DO at 04/14/2019 10:59 AM Report E-Signed By: Ishaan Guido DO at 04/14/2019 11:02 AM WSN:[id number]
--- NOTE | 2019-04-14 11:19 | RADIOLOGY IMAGING REPORT ---
FACILITY: [facility] [place] PATIENT NAME: Kaylee Almendarez : 1935 MR: [id number] V: [id number] EXAM DATE: ORDERING PHYSICIAN: GAIL GILLIAM TECHNOLOGIST: [facility] Patient: Kaylee Almendarez : 1935 Visit/Account:[id number] Date of Sevice: 04/14/2019 Technique: AP of the pelvis and crosstable lateral the right hip was obtained . The initial crosstab le lateral view is incorrectly labeled as the left hip HISTORY: right hip pain Comparison studies: None FINDINGS: Noted are acute, displaced fractures involving the right superior and inferior cubic ramus. The right superior pubic ramus fracture likely extends into the acetabulum. Symphysis or sacroilia c diastases. The alignment of the right hip is grossly preserved. Evaluation of the fracture on the cross table lateral view is limited due to body habitus. IMPRESSION: 1. Acute displaced fractures involving the right superior and inferior pubic ramus. The superior pu bic ramus fracture likely extends into the acetabulum. Due to body habitus evaluation of the crossta ble lateral view of the hip is limited. CT should be considered for additional characterization. Report Dictated By: Ishaan Guido DO at 04/14/2019 11:02 AM Report E-Signed By: Ishaan Guido DO at 04/14/2019 11:11 AM WSN:[id number]
[2019-04-14] MEDS ORDERED: fentaNYL CITR 100 MCG/2 ML AMP IVP ONE ×2 (12:20→14:25)
[2019-04-14] MEDS ORDERED: NS(*) 0.9% 1000 ML BAG 1,000 ML IV ONE (12:30)
--- NOTE | 2019-04-14 13:05 | RADIOLOGY IMAGING REPORT ---
FACILITY: [facility] [place] PATIENT NAME: Kaylee Almendarez : 1935 MR: [id number] V: [id number] EXAM DATE: ORDERING PHYSICIAN: GAIL GILLIAM TECHNOLOGIST: Location: [facility] [place] Patient: Kaylee Almendarez : 1935 Visit/Account:[id number] Date of Sevice: 04/14/2019 CT of the osseous pelvis without contrast Indication: Fall. Pelvic fracture. Comparison: None available. Technique: Axial CT images were obtained through the pelvis. Reformatted coronal and sagittal images were reviewed. One of the following dose optimization techniques was utilized in the performance of this exam: Autom ated exposure control; adjustment of the mA and/or kV according to the patient's size; or use of an i terative reconstruction technique. Specific details can be referenced in the facility's radiology C T exam operational policy. Findings: There are acute right superior and inferior pubic rami fractures identified. There is inferior displa cement of the more medial aspects of the pubic rami at the fracture sites. No significant hematoma is identified along the fracture site. The pubic symphysis remains appropriately aligned with degenerat waldemar changes. The right sacroiliac joint is normally aligned along its visualized portion. On the very edge of the [id number], there is a fracture line identified involving the anterior cor aysha of the right iliac wing. See today's CT scan report of the abdomen and pelvis for further detail concerning the iliac wing fracture. No extension is seen to the acetabulum. There are moderate severity changes of right hip joint osteoarthritis identified. No proximal femur f racture is seen. There is no joint effusion. No inguinal adenopathy. Mild atrophy involves the gluteus minimus and gluteus medius muscles. Within the pelvis, no free fluid is seen. There are sigmoid colon diverticula. IMPRESSION: 1. Acute right superior and inferior pubic rami fractures with inferior displacement of the more medi al fracture fragments. 2. Right iliac wing fracture seen on the edge of the [id number]. This is incompletely evaluated. N o extension is seen to the acetabulum. See today's abdominal pelvic CT scan report for further detail . 3. Right hip joint osteoarthritis. Report Dictated By: Anish Collazo at 04/14/2019 12:47 PM Report E-Signed By: Anish Collazo at 04/14/2019 12:58 PM WSN:[id number]
--- NOTE | 2019-04-14 13:43 | RADIOLOGY IMAGING REPORT ---
FACILITY: [facility] [place] PATIENT NAME: Kaylee Almendarez : 1935 MR: [id number] V: [id number] EXAM DATE: ORDERING PHYSICIAN: GAIL GILLIAM TECHNOLOGIST: Location: [facility] Patient: Kaylee Almendarez : 1935 Visit/Account:[id number] Date of Sevice: 04/14/2019 CT abdomen and pelvis without contrast Indication: Fall. Pelvic fracture. Comparison: Pelvic CT done earlier in the day. Technique: Axial CT images are obtained through the abdomen and pelvis. Reformatted coronal and sagit jose guadalupe images were reviewed. IV contrast was not administered. One of the following dose optimization techniques was utilized in the performance of this exam: auto mated exposure control; adjustment of the mA and/or kV according to the patient's size; or use of an iterative reconstruction technique. Specific details can be referenced in the facility's radiology C T exam operational policy. Findings: Lower lung frazier: Calcified granuloma in the right lower lobe. Otherwise unremarkable. Evaluation of the solid organs of the abdomen is limited without IV contrast. Liver: No focal parenchymal abnormality of the liver. Biliary: Gallbladder appears unremarkable as well as the intra and extra hepatic biliary system. Pancreas: No focal abnormality. Spleen: Normal appearance. Adrenal glands: Unremarkable. Kidneys / retroperitoneum: No evidence of nephrolithiasis or hydronephrosis. No focal abnormality. Bowel / peritoneum / mesenteries: Diverticula seen along the descending and sigmoid colon without per icolonic inflammation. The colon shows no focal normality. The appendix is normal. Stomach is unremar kable and mainly decompressed. No free air, free fluid, fluid collections or areas of inflammation. Small umbilical hernia containin g fat. Lymph node assessment: No pathologic adenopathy identified. Pelvic structures: Appear unremarkable. Vessels: Mild atherosclerotic calcifications seen throughout a nonaneurysmal abdominal aorta and bran ches. Musculoskeletal / Body wall: The right ilium does show a mildly comminuted fracture without significa nt displacement. The fracture extends to the superior SI joint without disruption of the joint. The s acrum is intact. There is a mildly comminuted right superior and inferior rami fractures. The superio r rami fracture does show mild medial displacement of butterfly fragment. The acetabulum appears inta ct. The femoral head and neck. Intact. No other indication of fractures. No dislocations. Degenerativ e change seen in the spine and both hips. No aggressive bony lesions. IMPRESSION: 1. Fracture of the right iliac wing, superior and inferior rami as above. There is no fracture of the acetabulum or proximal right femur. Degenerative change seen in both hips and lumbar spine. 2. No acute intra-abdominal or pelvic abnormality. 3. Diverticulosis without radiographic indication diverticulitis. Report Dictated By: Chano Rosario at 04/14/2019 1:14 PM Report E-Signed By: Chano Rosario at 04/14/2019 1:35 PM WSN:[id number]
[2019-04-14 15:04] VITALS: BP 131/65
[2019-04-14] MEDS ORDERED: INFLUENZA VIRUS VAC 0.5ML SYR IM ONLY ONE (15:10)
[2019-04-14] MEDS ORDERED: CETIRIZINE HCL 10 MG TAB PO PRN (15:10)
[2019-04-14] MEDS: oxyCODONE HCL 5 MG CAP PO PRN (15:48)
--- NOTE | 2019-04-14 15:56 | History & Physical ---
History of Present Illness Chief Complaint fall, right hip pain History of Present Illness She is an 83-year-old female who presented to the emergency department with complaints of right hip pain. She reports she fell last night, went to bed and has not been able to ambulate since the fall. She has significant past medical history of COPD with oxygen dependent, hypothyroidism, hypertension, and aortic valve stenosis. She was found to have right inferior and superior ramus fracture and was recommended for admission. History Problems: (1) Hypertension Status: Chronic (2) Hypothyroidism Status: Chronic (3) COPD (chronic obstructive pulmonary disease) Status: Chronic (4) Aortic valve stenosis Status: Chronic (5) CKD (chronic kidney disease) Status: Chronic Home Meds Reported Medications Cetirizine Hcl (ZYRTEC) 10 Mg Capsule, 10 MG PO QDAY PRN for ALLERGY SYMPTOMS, CAPSULE 04/28/16 Verapamil HCl (Verapamil Sr) 180 Mg Cap24h.pel, 180 MG PO HS 04/21/16 Oxycodone Hcl (ROXICODONE) 15 Mg Tablet, 10 MG PO 04/21/16 Montelukast Sodium (SINGULAIR) 10 Mg Tablet, 1 TAB PO QDAY, TAB 04/21/16 Lovastatin (LOVASTATIN) 40 Mg Tablet, 40 MG PO HS 04/21/16 Losartan Potassium (LOSARTAN POTASSIUM) 50 Mg Tablet, 50 MG PO QDAY 04/21/16 Chlorthalidone (CHLORTHALIDONE) 25 Mg Tab, 25 MG FT, TAB 04/21/16 Budesonide/Formoterol Fumarate (SYMBICORT 80-4.5 MCG INHALER) 10.2 Gm Hfa.aer.ad, 2 PUFF IH BID 04/21/16 Aspirin (ASPIRIN EC) 81 Mg Tablet.dr, 81 MG PO QDAY, TAB 04/21/16 Albuterol Sulfate (PROVENTIL HFA) 6.7 Gm Inh, 1-2 PUFF INH Q4H, INH 04/21/16 Oxygen (Oxygen) 2 L Inha, 2 L INH PRN 12/20/12 Levothyroxine Sodium (Levothyroxine Sodium) 50 Mcg Tablet, 50 MCG PO QAM, 0 Refills 05/02/09 Discontinued Reported Medications Turmeric Root Extract (TURMERIC) 500 Mg Capsule, 500 MG PO DAILY, CAPSULE 04/28/16 Allergies: Coded Allergies: lactose (Verified Adverse Reaction, Mild, DIARRHEA, 04/14/19) Hx Smoking: Yes Smoking Status: Former Smoker Caffeine Intake: Coffee, Tea Caffeine/Cups Per Day: 2-3 CUPS A DAY Hx Alcohol Use: Yes Hx Substance Use Disorder: No Social Drug Use: Never Review of Systems All Systems Reviewed/Normal: Yes, Except as Noted Musculoskeletal: Pain (right hip pain) Exam Vital Signs Vital Signs Date Time Temp Pulse Resp B/P (MAP) Pulse Ox O2 Delivery O2 Flow Rate FiO2 04/14/19 15:04 97.9 67 20 131/65 (87) 96 Nasal Cannula 2.0 General Appearance: Alert, Awake, No Acute Distress, Afebrile Neuro: Other (appears forgetful, confused) Cardiovascular: Regular Rate and Rhythm Respiratory: No Respiratory Distress, Clear to Auscultation GI: Abd Soft and Non-Tender Extremities: Warm, Perfused, Edema (non pitting edema bilateral lower extremities) Psych: Other (appears confused, tearful) Medical Decision Making Data Points Result Diagram: 04/14/1949 04/14/1949 EKG / Imaging EKG Interpretation Vent. Rate : 068 BPM Atrial Rate : 068 BPM P-R Int : 152 ms QRS Dur : 080 ms QT Int : 438 ms P-R-T Axes : 037 045 083 degrees QTc Int : 465 ms Sinus rhythm Possible left ventricular hypertrophy ST depression lateral leads Abnormal ECG Imaging PATIENT NAME: Kaylee Almendarez : 1935 MR: [id number] V: [id number] EXAM DATE: [id number] ORDERING PHYSICIAN: GAIL GILLIAM TECHNOLOGIST: Location: [facility] Patient: Kaylee Almendarez : 1935 Visit/Account:[id number] Date of Sevice: 04/14/2019 CT abdomen and pelvis without contrast Indication: Fall. Pelvic fracture. Comparison: Pelvic CT done earlier in the day. Technique: Axial CT images are obtained through the abdomen and pelvis. Reformatted coronal and sagittal images were reviewed. IV contrast was not administered. One of the following dose optimization techniques was utilized in the performance of this exam: automated exposure control; adjustment of the mA and/or kV according to the patient's size; or use of an iterative reconstruction technique. Specific details can be referenced in the facility's radiology CT exam operational policy. Findings: Lower lung frazier: Calcified granuloma in the right lower lobe. Otherwise unremarkable. Evaluation of the solid organs of the abdomen is limited without IV contrast. Liver: No focal parenchymal abnormality of the liver. Biliary: Gallbladder appears unremarkable as well as the intra and extra hepatic biliary system. Pancreas: No focal abnormality. Spleen: Normal appearance. Adrenal glands: Unremarkable. Kidneys / retroperitoneum: No evidence of nephrolithiasis or hydronephrosis. No focal abnormality. Bowel / peritoneum / mesenteries: Diverticula seen along the descending and sigmoid colon without pericolonic inflammation. The colon shows no focal normality. The appendix is normal. Stomach is unremarkable and mainly decompressed. No free air, free fluid, fluid collections or areas of inflammation. Small umbilical hernia containing fat. Lymph node assessment: No pathologic adenopathy identified. Pelvic structures: Appear unremarkable. Vessels: Mild atherosclerotic calcifications seen throughout a nonaneurysmal abdominal aorta and branches. Musculoskeletal / Body wall: The right ilium does show a mildly comminuted fracture without significant displacement. The fracture extends to the superior SI joint without disruption of the joint. The sacrum is intact. There is a mildly comminuted right superior and inferior rami fractures. The superior rami fracture does show mild medial displacement of butterfly fragment. The acetabulum appears intact. The femoral head and neck. Intact. No other indication of fractures. No dislocations. Degenerative change seen in the spine and both hips. No aggressive bony lesions. IMPRESSION: 1. Fracture of the right iliac wing, superior and inferior rami as above. There is no fracture of the acetabulum or proximal right femur. Degenerative change seen in both hips and lumbar spine. 2. No acute intra-abdominal or pelvic abnormality. 3. Diverticulosis without radiographic indication diverticulitis. Report Dictated By: Chano Rosario at 04/14/2019 1:14 PM Report E-Signed By: Chano Rosario at 04/14/2019 1:35 PM WSN:[id number] PATIENT NAME: Kaylee Almendarez : 1935 MR: [id number] V: [id number] EXAM DATE: ORDERING PHYSICIAN: GAIL GILLIAM TECHNOLOGIST: Location: [facility] Patient: Kaylee Almendarez : 1935 Visit/Account:[id number] Date of Sevice: 04/14/2019 CT of the osseous pelvis without contrast Indication: Fall. Pelvic fracture. Comparison: None available. Technique: Axial CT images were obtained through the pelvis. Reformatted coronal and sagittal images were reviewed. One of the following dose optimization techniques was utilized in the performance of this exam: Automated exposure control; adjustment of the mA an d/or kV according to the patient's size; or use of an iterative reconstruction technique. Specific details can be referenced in the facility's radiology CT exam operational policy. Findings: There are acute right superior and inferior pubic rami fractures identified. There is inferior displacement of the more medial aspects of the pubic rami at the fracture sites. No significant hematoma is identified along the fracture site. The pubic symphysis remains appropriately aligned with degenerative changes. The right sacroiliac joint is normally aligned along its visualized portion. On the very edge of the [id number], there is a fracture line identified involving the anterior cortex of the right iliac wing. See today's CT scan report of the abdomen and pelvis for further detail concerning the iliac wing fracture. No extension is seen to the acetabulum. There are moderate severity changes of right hip joint osteoarthritis identified. No proximal femur fracture is seen. There is no joint effusion. No inguinal adenopathy. Mild atrophy involves the gluteus minimus and gluteus medius muscles. Within the pelvis, no free fluid is seen. There are sigmoid colon diverticula. IMPRESSION: 1. Acute right superior and inferior pubic rami fractures with inferior displacement of the more medial fracture fragments. 2. Right iliac wing fracture seen on the edge of the [id number]. This is incompletely evaluated. No extension is seen to the acetabulum. See today's abdominal pelvic CT scan report for further detail. 3. Right hip joint osteoarthritis. Report Dictated By: Anish Collazo at 04/14/2019 12:47 PM Report E-Signed By: Anish Collazo at 04/14/2019 12:58 PM PATIENT NAME: Kaylee Almendarez : 1935 MR: [id number] V: [id number] EXAM DATE: ORDERING PHYSICIAN: GAIL GILLIAM TECHNOLOGIST: Location: [facility] Patient: Kaylee Almendarez : 1935 Visit/Account:[id number] Date of Sevice: 04/14/2019 Technique: AP of the pelvis and crosstable lateral the right hip was obtained . The initial crosstable lateral view is incorrectly labeled as the left hip HISTORY: right hip pain Comparison studies: None FINDINGS: Noted are acute, displaced fractures involving the right superior and inferior cubic ramus. The right superior pubic ramus fracture likely extends into the acetabulum. Symphysis or sacroiliac diastases. The alignment of the right hip is grossly preserved. Evaluation of the fracture on the cross table lateral view is limited due to body habitus. IMPRESSION: 1. Acute displaced fractures involving the right superior and inferior pubic ramus. The superior pubic ramus fracture likely extends into the acetabulum. Due to body habitus evaluation of the crosstable lateral view of the hip is limited. CT should be considered for additional characterization. Report Dictated By: Ishaan Guido DO at 04/14/2019 11:02 AM Report E-Signed By: Ishaan Guido DO at 04/14/2019 11:11 AM PATIENT NAME: Kaylee Almendarez : 1935 MR: [id number] V: [id number] EXAM DATE: ORDERING PHYSICIAN: GAIL GILLIAM TECHNOLOGIST: Location: [facility] Patient: Kaylee Almendarez : 1935 Visit/Account:[id number] Date of Sevice: 04/14/2019 Technique: CHEST SINGLE AP HISTORY: RIGHT HIP PAIN COMPARISON: March 11, 2018 Findings: The lungs are clear. Unchanged granuloma overlies the medial right lung base. No pleural effusion or pneumothorax. The cardiomediastinal silhouette is unchanged. Vertically warranted lucency is noted within the right third rib; likely chronic. Chronic right-sided rib fractures noted Impression: 1. No acute cardiopulmonary process. 2. Chronic right-sided rib fractures. Report Dictated By: Ishaan Guido DO at 04/14/2019 10:59 AM Report E-Signed By: Ishaan Guiod DO at 04/14/2019 11:02 AM WSN:[id number] Assessment and Plan Problems: (1) Pubic ramus fracture Status: Acute Assessment & Plan: She presented with right hip pain after fall. She was found to have right superior and inferior pubic ramus fracture. She will be placed on Oxycodone and Tylenol prn. She will get PT/OT evaluation. ER consulted Dr. Gamble on-call for ortho, this fracture is non operable. She will need pain control and therapy. She will get Zapata Catheter placed. (2) Anemia Status: Acute Assessment & Plan: Her hemoglobin and hematocrit were decreased upon admission. She denies any source of bleeding at this time. She will be monitored to assure she is not bleeding into her pelvis from fracture. Will get CBC in the morning. (3) COPD (chronic obstructive pulmonary disease) Status: Chronic Assessment & Plan: Continue chronic Symbicort and albuterol inhaler. She is chronically on 3L oxygen at baseline. (4) Hypertension Status: Chronic Assessment & Plan: Continue chronic Losartan and Verapamil with hold parameters. Will hold Chlorthalidone for now. (5) Hypothyroidism Status: Chronic Assessment & Plan: Continue chronic Levothyroxine. (6) Aortic valve stenosis Status: Chronic Assessment & Plan: Patient of Dr. Gomez. Recent echo shows moderate aortic valve stenosis. Should be careful with fluid administration and diuresis throug hout admission. (7) CKD (chronic kidney disease) Status: Chronic Assessment & Plan: Baseline creatinine is 1.7. Her creatinine was 1.8 upon admission. (8) Confusion Assessment & Plan: Unknown if chronic or acute. Patient appears forgetful about current events. Unable to question about her usual mental status. (9) Chronic pain Status: Chronic Assessment & Plan: She is on chronic treatment with oxycodone. Patient does not know where her chronic pain is. Venous Thromboembolism Antithrombotics Is Pt On Any Antithrombotics?: No Prophylaxis Tx Contraindicated Pharmacological Contraindicati: Medical Contraindication Exam Sepsis Risk: No Definite Risk Problem Qualifiers (1) Hypertension: Hypertension type: essential hypertension Qualified Codes: I10 - Essential (primary) hypertension BAKARI MILLERP Apr 14, 2019 15:56
[2019-04-14] MEDS: BUDESO/FORMOT 80/4.5 MCG 6.9GM INH SCH (17:49)
[2019-04-14 19:05] VITALS: BP 103/64
[2019-04-14] MEDS: VERAPAMIL HCL SR 180 MG TABCR PO SCH (19:58)
[2019-04-14] MEDS: LOVASTATIN 20 MG TAB PO SCH (20:43)
[2019-04-14] MEDS: ACETAMINOPHEN 325 MG TAB PO PRN (20:44)
[2019-04-14 23:24] VITALS: BP 110/54
[2019-04-15 03:27] VITALS: BP 113/57
[2019-04-15] MEDS: BUDESO/FORMOT 80/4.5 MCG 6.9GM INH SCH ×2 (05:35→16:53)
[2019-04-15] MEDS: oxyCODONE HCL 5 MG CAP PO PRN ×2 (05:40→11:52)
[2019-04-15] MEDS: LEVOTHYROXINE SOD 0.05 MG TAB PO SCH (05:40)
[2019-04-15 06:09] LABS: PLATELET COUNT, AUTOMATED 249 K/uL (150-450)
[2019-04-15 07:15] VITALS: BP 120/61
[2019-04-15] MEDS: ACETAMINOPHEN 325 MG TAB PO PRN ×2 (07:46→20:52)
[2019-04-15] MEDS: ASPIRIN 81 MG ENTERIC COATED PO SCH (08:54)
[2019-04-15] MEDS: MONTELUKAST SODIUM 10 MG TAB PO SCH (08:54)
[2019-04-15] MEDS: LOSARTAN POTASSIUM 50 MG TAB PO SCH (08:56)
--- NOTE | 2019-04-15 09:25 | NUR ---
Physical Therapy Impression PT/OT co evnora complete. Pt with increased pain with mobility but overall fair tolerance. Afshin for supine to sit with HOB raised. Afshin x2 for stand pivot transfer to/from commode with RW, with assist for walker negotiation. MaxA for sit to supine. Recommendation pending progress. Physical Therapy Goals 1: Pt to complete bed mobilitty with Afshin 2: pt to complete transfers with RW and SBA 3: pt to asc/desc 2 stairs with railing and CGA Patient's Goals
--- NOTE | 2019-04-15 09:54 | NUR ---
Occupational Therapy Impression Initial OT/OT evaluation completed. Min A supine to sit. Min Ax1-2 stand step pivot bed to BSC and BSC to bed. Assist to negotiate RW. Mod Ax2 sit<>supine. Pt with significant pain, reports relief upon return to bed. SpO2 WNL on 3L. Pending progress, recommend subacute rehab. Occupational Therapy Goals 1) Pt will be Min A UB/LB dressing. 2) Pt will be Min A toilet task. 3) Pt will be Min A grooming/hygiene. Patient's Goal
--- NOTE | 2019-04-15 09:55 | NUR ---
Occupational Therapy Impression Initial OT/OT evaluation completed. Min A supine to sit. Min Ax1-2 stand step pivot bed to BSC and BSC to bed. Assist to negotiate RW. Mod Ax2 sit<>supine. Pt with significant pain, reports relief upon return to bed. SpO2 WNL on 3L. Occupational Therapy Goals 1) Pt will be Min A UB/LB dressing. 2) Pt will be Min A toilet task. 3) Pt will be Min A grooming/hygiene. Patient's Goal
--- NOTE | 2019-04-15 10:45 | Medical Nutrition Therapy ---
Nutrition Anthropometrics Weight (Pounds): 160 Weight (Calculated Kilograms): 72.830 [place] Nutrition Score: Adequate [place] Nutrition Risk Score: 17 Dietary Referral Nutrition Risk Factors: Nutrition Risk Comment: Physical Findings Physical Appearance: Skin Appearance Skin Appearance: Edema Edema Location Modifier: Both Edema Location: Lower Extremity Type of Edema: Degree of Edema: 1+ Gastrointestinal Symptoms GI Symtoms: Tube Present: Bowel Sounds: Recent Bowel Pattern: Stool Characteristics: Nutrition/Food History Good Snacks: Eats 3 meals per day Nutritional Diagnosis Nutritional Risk Acuity 3: Fx & > 80 yrs Past Medical History: COPD, HTN, CKD, Hypothyroid, CKD, Chronic Pain Nutritional Acuity: 3-Mild Energy Requirement: 1455 (4585-5905 (20-25kcal/kg)) Protein Requirement: 73 (1g/kg) Fluid Requirement: 1818 (30mL/kg) Nutrition Intervention: Teaching Nutrition Monitoring & Eval Nutrition Follow-Up: Good Intake Nutrition Monitoring: Intake, Weight, Obtain Height RD Patient Assessment Time: [address] Assessment Type: RD Assessment Patient Nutrition Acuity: 3-Mild Follow Up Date: Apr 20, 2019 Nutritional Comment: 04/15/19: Spoke with pt and daughter this am. Pt eats three meals per day at home, appears well nourished. Pt currently on BRYCE ate 75% x 1 meal. Pt admitted for fall and fx of R Hip. Pertinent PMH includes COPD, HTN, CKD, Hypothyroid, Chronic paon. BUN elevated at 45, Cre elevated at 1.7. Encouraged pt to eat plenty of protein to promote healing of hip fx also recommended calcium/vitamin D supplement to promote healing. Will continue to monitor intakes/need for additional diet education.HYACINTH RAMÍREZ Apr 15, 2019 10:45
[2019-04-15 11:48] VITALS: BP 123/68
--- NOTE | 2019-04-15 12:21 | Hospitalist Progress Note ---
Subjective Progress Notes Subjective No acute events overnight. She appears to be more alert. She is aware of where she is, and why she is here. Patient Complains of: Neurological: No: Confusion Cardiovascular: No: Chest Pain, Palpitations Respiratory: No: Congestion, Shortness of Breath Physical Exam Vital Signs Date Time Temp Pulse Resp B/P (MAP) Pulse Ox O2 Delivery O2 Flow Rate FiO2 04/15/19 11:48 98.8 81 18 123/68 (86) 92 Nasal Cannula 3.0 Intake and Output 04/15/19 01:03 Intake Total 200 ml Output Total 300 ml Balance -100 ml Intake Oral 200 ml Output Urine Total 300 ml General Appearance: Alert, Awake, No Acute Distress Cardiovascular: Regular Rate and Rhythm Respiratory: No Respiratory Distress, Clear to Auscultation Result Diagram: 04/15/1954704/15/19547 Assessment and Plan Problems: (1) Pubic ramus fracture Status: Acute Assessment & Plan: She presented with right hip pain after fall. She was found to have right superior and inferior pubic ramus fracture. Receiving Oxycodone and Tylenol prn for pain control. PT/OT is working with her. Fracture is non operable, per Dr. Gamble. (2) Anemia Status: Acute Assessment & Plan: H&H remained low, but stable with where they were on 04/14. Will recheck again in AM to look for any changes. (3) COPD (chronic obstructive pulmonary disease) Status: Chronic Assessment & Plan: Continue chronic Symbicort and albuterol inhaler. She is chronically on 3L oxygen at baseline. (4) Hypertension Status: Chronic Assessment & Plan: Continue chronic Losartan and Verapamil with hold parameters. Will continue to hold Chlorthalidone for now, as Blood Pressure had been stable without it. (5) Hypothyroidism Status: Chronic Assessment & Plan: Continue chronic Levothyroxine. (6) Aortic valve stenosis Status: Chronic Assessment & Plan: Patient of Dr. Gomez. Recent echo shows moderate aortic valve stenosis. Should be careful with fluid administration and diuresis throughout admission. (7) CKD (chronic kidney disease) Status: Chronic Assessment & Plan: Baseline creatinine is 1.7. Her creatinine was slightly elevated from baseline on admission, but is back at baseline now. (8) Confusion Assessment & Plan: Pt seems more alert today. She was able to answer questions appropriately, knew where she was and why she was here. (9) Chronic pain Status: Chronic Assessment & Plan: She denies any chronic pain other than arthritic pain, for which she takes Ibuprofen. She denies taking Oxycodone, and agrees that she does not take any other pain medications at home. Exam Sepsis Risk: No Definite Risk Problem Qualifiers (1) Hypertension: Hypertension type: essential hypertension Qualified Codes: I10 - Essential (primary) hypertension GAIL ROCHA Apr 15, 2019 12:21
[2019-04-15 19:05] VITALS: BP 121/65
[2019-04-15] MEDS: VERAPAMIL HCL SR 180 MG TABCR PO SCH (20:49)
[2019-04-15] MEDS: LOVASTATIN 20 MG TAB PO SCH (20:49)
[2019-04-15] MEDS ORDERED: ALBUTEROL 2.5 MG/3 ML NEB NEB PRN (23:00)
[2019-04-15] MEDS ORDERED: ALBUTEROL/IPRATROPIUM 3 ML NEB NEB PRN (23:00)
[2019-04-15 23:08] VITALS: BP 102/56
[2019-04-16] VITALS (11 sets, daily range): BP systolic 90–160; BP diastolic 52–72
[2019-04-16] MEDS: BUDESO/FORMOT 80/4.5 MCG 6.9GM INH SCH ×2 (05:30→17:15)
[2019-04-16] MEDS: LEVOTHYROXINE SOD 0.05 MG TAB PO SCH (05:31)
[2019-04-16] MEDS: ACETAMINOPHEN 325 MG TAB PO PRN (05:32)
[2019-04-16 05:47] LABS: PLATELET COUNT, AUTOMATED 245 K/uL (150-450)
[2019-04-16] MEDS ORDERED: BISACODYL 10 MG SUPP PR PRN (08:10)
[2019-04-16] MEDS ORDERED: MAGNESIUM HYDROXIDE* 30ML UDCP PO PRN (08:10)
[2019-04-16] MEDS: LOSARTAN POTASSIUM 50 MG TAB PO SCH (09:00)
[2019-04-16] MEDS: ASPIRIN 81 MG ENTERIC COATED PO SCH (09:07)
[2019-04-16] MEDS: NS(*) 0.9% 250 ML BAG 250 ML IVPB PRN ×2 (09:07→13:33)
[2019-04-16] MEDS: DOCUSATE SODIUM 100 MG CAP PO SCH ×2 (09:07→21:33)
[2019-04-16] MEDS: MONTELUKAST SODIUM 10 MG TAB PO SCH (09:08)
[2019-04-16] MEDS: POLYETHYLENE GLYCOL 17 GM PKT PO SCH (09:11)
--- NOTE | 2019-04-16 09:53 | Hospitalist Progress Note ---
Subjective Progress Notes Subjective No acute events overnight. Her H&H did drop this morning, She is asymptomatic at this time. Patient Complains of: Neurological: No: Confusion Cardiovascular: No: Chest Pain, Palpitations Respiratory: No: Shortness of Breath Physical Exam Vital Signs Date Time Temp Pulse Resp B/P (MAP) Pulse Ox O2 Delivery O2 Flow Rate FiO2 04/16/19 09:15 85 High-Flow Nasal Cannula 2.0 04/16/19 06:58 98.2 70 16 90/52 (65) Intake and Output 04/16/19 01:03 Intake Total 800 ml Output Total 275 ml Balance 525 ml Intake Oral 800 ml Output Urine Total 275 ml General Appearance: Alert, Awake, No Acute Distress Cardiovascular: Regular Rate and Rhythm Respiratory: No Respiratory Distress, Clear to Auscultation Result Diagram: 04/16/1952004/15/19 0548 Assessment and Plan Problems: (1) Pubic ramus fracture Status: Acute Assessment & Plan: She presented with right hip pain after fall. She was found to have right superior and inferior pubic ramus fracture. Receiving Oxycodone and Tylenol prn for pain control, she states that pain is well controlled. PT/OT is working with her. Fracture is non operable, per Dr. Gamble. (2) Anemia Status: Acute Assessment & Plan: H&H dropped this morning. She is asymptomatic at this time, but based on her cardiac comorbidities we will transfuse 2 units PRBC's when available. Will continue to monitor H&H. (3) COPD (chronic obstructive pulmonary disease) Status: Chronic Assessment & Plan: Continue chronic Symbicort and albuterol inhaler. She is chronically on 3L oxygen at baseline. (4) Hypertension Status: Chronic Assessment & Plan: Continue chronic Losartan and Verapamil with hold parameters. Will continue to hold Chlorthalidone for now, as Blood Pressure had been stable without it. (5) Hypothyroidism Status: Chronic Assessment & Plan: Continue chronic Levothyroxine. (6) Aortic valve stenosis Status: Chronic Assessment & Plan: Patient of Dr. Gomez. Recent echo shows moderate aortic valve stenosis. Will monitor with blood transfusion today. (7) CKD (chronic kidney disease) Status: Chronic Assessment & Plan: Baseline creatinine is 1.7. Her creatinine was slightly elevated from baseline on admission, but was back to baseline on 04/15. (8) Confusion Assessment & Plan: Pt seems more alert. She has been able to answer questions appropriately. (9) Chronic pain Status: Chronic Assessment & Plan: She denies any chronic pain other than arthritic pain, for which she takes Ibuprofen. She denies taking Oxycodone, and agrees that she does not take any other pain medications at home. Exam Sepsis Risk: No Definite Risk Problem Qualifiers (1) Hypertension: Hypertension type: essential hypertension Qualified Codes: I10 - Essential (primary) hypertension GAIL ROCHA Apr 16, 2019 09:53
[2019-04-16] MEDS ORDERED: MONT10TA4 PO (09:55)
[2019-04-16] MEDS ORDERED: IPRA3AMP10 INH (09:55)
[2019-04-16] MEDS ORDERED: FURO-45 PO (09:55)
--- NOTE | 2019-04-16 13:00 | NUR ---
Physical Therapy Impression Pt requires Min A for supine<>sit transfer, CGA to stand, and is unable to tolerate ambulation due to pain. Recommend additional rehab prior to returning home. Physical Therapy Goals 1: Pt to complete bed mobilitty with Afshin 2: pt to complete transfers with RW and SBA 3: pt to asc/desc 2 stairs with railing and CGA Patient's Goals
--- NOTE | 2019-04-16 13:50 | NUR ---
ECF Referral - Met with patient who states she just feels so weak. Explained role of ECF to help her get stronger and get home, verbalized understanding. Discussed with Heide Granado RN need for arreola catheter to be removed prior to transfer. Patient is getting blood today due to low H&H. PASRR negative. Preauthorization is required which has been initiated by Beulah Lofton RN. Can be admitted once medically stable and preauthorization obtained.
[2019-04-16] MEDS: oxyCODONE HCL 5 MG CAP PO PRN (14:26)
[2019-04-16] MEDS: VERAPAMIL HCL SR 180 MG TABCR PO SCH (21:00)
[2019-04-16] MEDS: LOVASTATIN 20 MG TAB PO SCH (21:33)
[2019-04-17 03:39] VITALS: BP 117/63
[2019-04-17 04:57] LABS: PLATELET COUNT, AUTOMATED 244 K/uL (150-450)
[2019-04-17] MEDS: LEVOTHYROXINE SOD 0.05 MG TAB PO SCH (05:21)
[2019-04-17] MEDS: BUDESO/FORMOT 80/4.5 MCG 6.9GM INH SCH (05:52)
[2019-04-17 07:33] VITALS: BP 128/75
[2019-04-17] MEDS: LOSARTAN POTASSIUM 50 MG TAB PO SCH (09:00)
[2019-04-17 09:15] VITALS: BP 127/74
[2019-04-17] MEDS: POLYETHYLENE GLYCOL 17 GM PKT PO SCH (09:17)
[2019-04-17] MEDS: MONTELUKAST SODIUM 10 MG TAB PO SCH (09:18)
[2019-04-17] MEDS: ASPIRIN 81 MG ENTERIC COATED PO SCH (09:18)
[2019-04-17] MEDS: DOCUSATE SODIUM 100 MG CAP PO SCH (09:18)
--- NOTE | 2019-04-17 09:53 | Transfer Summary (ECF/SWB) ---
Transfer Summary (ECF/SWB) Problems: (1) Pubic ramus fracture Status: Acute Assessment & Plan: She presented with right hip pain after fall. She was found to have right superior and inferior pubic ramus fracture. Receiving Oxycodone and Tylenol prn for pain control, she states that pain is well controlled. PT/OT is working with her and recommending further rehab for strengthening. Fracture is non operable, per Dr. Gamble. (2) Anemia Status: Acute Assessment & Plan: Transfused 2 units PRBC's on 04/16. H&H improved on this mornings labs. No obvious bleeding. Pt has remained asymptomatic. Will continue to monitor. (3) COPD (chronic obstructive pulmonary disease) Status: Chronic Assessment & Plan: Continue chronic Symbicort and albuterol inhaler. She is chronically on 3L oxygen at baseline. (4) Hypertension Status: Chronic Assessment & Plan: Continue chronic Losartan and Verapamil with hold parameters. Will continue to hold Chlorthalidone for now, as Blood Pressure had been stable without it. (5) Hypothyroidism Status: Chronic Assessment & Plan: Continue chronic Levothyroxine. (6) Aortic valve stenosis Status: Chronic Assessment & Plan: Patient of Dr. Gomez. Recent echo shows moderate aortic valve stenosis. Will continue to be conservative with any fluid needs. No issues noted with blood transfusion on 04/16. (7) CKD (chronic kidney disease) Status: Chronic Assessment & Plan: Baseline creatinine is 1.7. Her creatinine was slightly elevated from baseline on admission, but has improved. (8) Confusion Assessment & Plan: Pt seems more alert. She has been able to answer questions appropriately. (9) Chronic pain Status: Chronic Assessment & Plan: She denies any chronic pain other than arthritic pain, for which she takes Ibuprofen. She denies taking Oxycodone, and agrees that she does not take any other pain medications at home. Pt states she is having no pain except for while transferring, and then it is manageable with current pain regimen. Latest Vital Signs Vital Signs Date Time Temp Pulse Resp B/P (MAP) Pulse Ox O2 Delivery O2 Flow Rate FiO2 04/17/19 09:15 127/74 (91) 04/17/19 08:15 High-Flow Nasal Cannula 04/17/19 07:45 93 4.0 04/17/19 07:33 98.8 68 04/17/19 03:39 16 Result Diagram: 04/17/19 0430 04/17/19429 Condition: Improved Disposition: SNF/NH Treatment Goals and Plan Patient requires intermediate and/or skilled rehabilitation with the goal to increase independence with ADL's, functional strength and mobility. Continue and adjust medication regimen. Services Required: PT, OT Copies To 1: FRANCI ECHEVARRIA MD ; Problem Qualifiers (1) Hypertension: Hypertension type: essential hypertension Qualified Codes: I10 - Essential (primary) hypertension GAIL ROCHA Apr 17, 2019 09:53
== END 2019-04-17 10:30 | DRG 536 ==
LOC: ER 09:39 → MED 14:28 → INTOOBSV 14:28 → OBSVTOIN 04-16
PROVIDERS: ADMIT Internal Medicine; ATTEND Internal Medicine
PROC: 30233N1 Transfusion of Nonautologous Red Blood Cells into Peripheral Vein, Percutaneous Approach (ICD-10-PCS; principal; 2019-04-16)
DX: S32.511A Fracture of superior rim of right pubis, initial encounter for closed fracture (principal); S32.591A Other specified fracture of right pubis, initial encounter for closed fracture; I35.0 Nonrheumatic aortic (valve) stenosis; J44.9 Chronic obstructive pulmonary disease, unspecified; I12.9 Hypertensive chronic kidney disease with stage 1 through stage 4 chronic kidney disease, or unspecified chronic kidney disease; G89.29 Other chronic pain; E03.9 Hypothyroidism, unspecified; N18.9 Chronic kidney disease, unspecified; D64.9 Anemia, unspecified; W18.30XA Fall on same level, unspecified, initial encounter; Z95.1 Presence of aortocoronary bypass graft; Z91.011 Allergy to milk products; Z87.891 Personal history of nicotine dependence
CPT/HCPCS: 36415; 71045; 74176; 81001; 82040; 82247; 82310; 82374; 82435; 82565; 82947; 84075; 84132; 84155; 84295; 84450; 84460; 84484; 84520; 85025; 86850; 86900; 86901; 86920; 93005; 94640; 96374; 96375; 96376; 97161; 97166; 99285; G0378; J3010; J7030; J7050; P9016

== ENCOUNTER → 2019-04-14 | Outpatient (CLI) | payer MEDICARE ==
[~2019-04-14] MED LIST changes: +FURO-45 PO; +IPRA3AMP10 INH; +MONT10TA4 PO
== END ==
LOC: AMB 08:52
PROVIDERS: ATTEND Nurse Practitioner
DX: M25.551 Pain in right hip (principal); R06.02 Shortness of breath; W01.0XXA Fall on same level from slipping, tripping and stumbling without subsequent striking against object, initial encounter
CPT/HCPCS: A0425; A0433

== ENCOUNTER 2019-04-17 10:52 | Inpatient (IN) | payer MEDICARE ==
[~2019-04-17] VITALS: Ht 152.4 cm; Wt 70.9 kg
[2019-04-17 10:37] VITALS: BP 134/67
[~2019-04-17 10:52] MED LIST changes: +FURO-45 PO; +IPRA3AMP10 INH; +MONT10TA4 PO
[2019-04-17] MEDS ORDERED: ALBUTEROL 2.5 MG/3 ML NEB NEB PRN (11:23)
[2019-04-17] MEDS ORDERED: CETIRIZINE HCL 10 MG TAB PO PRN (11:23)
[2019-04-17] MEDS ORDERED: BISACODYL 10 MG SUPP PR PRN (11:23)
[2019-04-17] MEDS: oxyCODONE HCL 5 MG CAP PO PRN ×2 (14:09→19:30)
--- NOTE | 2019-04-17 14:45 | NUR ---
Physical Therapy Impression PT eval complete. Please see EMR Other Reports for details. Physical Therapy Goals 1. Mod I bed mobility. 2. Mod I transfers. 3. Mod I gait x 50' with RW. 4. Ascend/descend 4 stairs without rail and CGA. 5. Pt able to negotiate ramp with SBA. 6. Pt able to pick object up off floor with SBA. Patient's Goals
--- NOTE | 2019-04-17 15:12 | OT ECF NOTE ---
Type of Note: Initial Note Primary Medical Diagnosis: Weakness s/p pelvic fracture Occupational Therapy Evaluation Date: 04/17/19 SUBJECTIVE: Prior Hospitalization: [facility] 04/16/19-04/17/19 Prior Level of Function: Independent with ADLs/IADLs. Ambulating with a cane. Pt does not drive. Prior Living Status: Bi-level house Spouse Assist by family Community Services: No known needs Home Accessibility: Stairs with rails All needs on one level Tub/shower combination Equipment Owned: Cane Medical Complications/Past Medical History: Please refer to EMR Psychosocial Support: Supportive family Pain Scale (0-10): Significant pain at evaluation, pt unable to tolerate functional mobility. No numerical rating provided. Expressed relief with return to chair and positioning. OBJECTIVE: Strength: MMT: Right Left Shoulder Flexion WFL WFL Elbow Flexion WFL WFL Wrist Extension WFL WFL Rebar Bender WFL WFL (5= normal, 4= good, 3= fair, 2= poor, 1= trace) ROM: Both upper extremities, WFL Sensation: No paraesthesia reported Functional Transfer: Assistive Device: Front wheeled walker, Gait belt Transfer Ability: Minimum assistance, 2-person assist. Unable to tolerate functional mobility at this time due to pain. Nursing informed and addressing pain medications ADL: Upper body dressing: Assistive device: Upper body dressing ability: N/T Lower body dressing: Assistive device: May benefit from LB AE education Lower body dressing ability: Total assistance Toileting: Assistive device: Toileting ability: N/T Grooming/hygiene: Assistive device: Grooming ability: N/T Bathing: Assistive device: Bathing ability: N/T Standardized Assessment: Lio Index of Activities of Daily Livin/20 upon initial evaluation (04/17/19). ASSESSMENT: Kaylee presents to [facility] requiring 1-2 assist for ADLs and an EZ lift for functional mobility with staff. At [facility], she was largely independent with ADLs/IADLs. She will benefit from skilled OT services to improve activity tolerance and optimize independence for engagement in ADLs. Problem List/Current Limitations: Pain Decreased activity tolerance Generalized weakness Short Term Goals: 1) Pt will be Mod (I) UB/LB dressing. 2) Pt will be Mod (I) toilet task. 3) Pt will be Mod (I) grooming/hygiene. 4) Pt will be Min A shower task. 5) Pt Lio Index of ADLs score will improve by 2 points. Assisted Goals: Return home with HomeHealth Patient Goals: Return home Rehabilitation Prognosis: Good Barriers to Discharge: Pain PLAN: The patient will benefit from skilled occupational therapy services 5 times per week for 2 weeks including: Ther ex ADL training Safety training Ther act IADL training Home assessment Transfer training Adaptive equip training Bed mobility Energy conservation Thank you for this referral. If you have any questions, concerns, or comments about this report or plan, please contact me at . Mary Herndon MS, OTR/L Occupational Therapist REGGIE
[2019-04-17] MEDS: HYDROCORTISONE 1% CR 28.35 GM TP SCH ×2 (15:30→21:00)
--- NOTE | 2019-04-17 15:32 | Consultant Pharmacy Review ---
Box Car Loader Review Medication Review Do All Mecications have a Diag: Yes Drugs to Use With Caution ASA for Primary Prevent. (Lack of evidence of benefit vs. risk in adults >80 years of age. Patient takes at home) Other General Cautions 1- Cetirizine and Oxycodone are both ENGAGEMENT DIRECTOR depressants; monitor for evidence of excessive ENGAGEMENT DIRECTOR depression (hypotension, respiratory depression, sedation...) 2-Milk of magnesia and Levothyroxine: Magnesium salts may decrease the serum concentration of Levothyroxine. Levothyroxine has been scheduled for 6 am. Separate administrations by at least 4 hours. 3- Verapamil increases the serum concentration of Lovastatin. Do not exceed a lovastatin daily dose of 20 mg. Pneumococcal Vaccine HX Pneumo Vac ([id number]): Yes (age 71) HX Pneumo Vac (Pneumovax): Yes DAMON LOYD V Apr 17, 2019 15:32
--- NOTE | 2019-04-17 15:52 | PT ECF NOTE ---
Type of Note: Initial Note Primary Medical Diagnosis: R pelvic fracture Physical Therapy Evaluation Date: 04/17/2019 SUBJECTIVE: Prior Hospitalization: [facility] 04/14-04/17/19 Prior Level of Function: Pt reports ambulating with a cane prior to fall. Pt reports I/Mod I with other functional mobility. Prior Living Status: Bi-level house, Spouse, Assist by family, all needs on 1 level Community Services: No known needs Home Accessibility: 2 stairs with rail to enter the front, 2 stairs without rails to enter through the garage, All needs on one level, Tub/shower combination Equipment Owned: Cane Medical Complications/Past Medical History: See EMR Psychosocial Support: Supportive spouse and daughters. Pt's daughters live in [facility] Pain Scale (0-10): Pt reporting severe pain during PT eval. OBJECTIVE: Bed Mobility: not observed Transfers: Moderate assistance, 2-person assist Assistive Device: Front wheeled walker Gait: attempted, Pt unable ASSESSMENT: Pt presents with significant decrease in independent and tolerance to functional mobility s/p fall with pelvic fracture. Pt will benefit from skilled PT for functional mobility training in order to return to prior level of function. Problem List/Current Limitations: Pain, Decreased activity tolerance, Decreased strength, Decreased balance, Generalized weakness Short Term Goals: 1. Mod I bed mobility. 2. Mod I transfers. 3. Mod I gait x 50' with RW. 4. Ascend/descend 4 stairs without rail and CGA. 5. Pt able to negotiate ramp with SBA. 6. Pt able to pick object up off floor with SBA. [facility] Goals: Return home Patient Goals: Return home Rehabilitation Prognosis: Fair Barriers for Discharge: increased pain PLAN: The patient will benefit from skilled physical therapy services 5 times per week for 2 weeks including: Therapeutic Exercise, Therapeutic Activities, Transfer Training, Gait Training, Stair Training, Manual Therapy, ADL's, Safety Training, Neuromuscular Re-educ., Pt/Caregiver Training, Bed Mobility Thank you for this referral. If you have any questions, concerns, or comments about this report or plan, please contact me at . Christina Almendarez, PT, DPT, GCS MTDD
[2019-04-17] MEDS: CALCIUM CARBONATE/VITAMIN D3 PO SCH (17:27)
[2019-04-17] MEDS: BUDESO/FORMOT 80/4.5 MCG 6.9GM INH SCH (17:30)
[2019-04-17] MEDS: LOVASTATIN 20 MG TAB PO SCH (19:30)
[2019-04-17] MEDS: VERAPAMIL HCL SR 180 MG TABCR PO SCH (19:30)
[2019-04-17] MEDS: DOCUSATE SODIUM 100 MG CAP PO SCH (19:30)
[2019-04-17 21:00] VITALS: BP 139/75
[2019-04-18] MEDS: oxyCODONE HCL 5 MG CAP PO PRN ×3 (02:42→20:38)
[2019-04-18] MEDS: BUDESO/FORMOT 80/4.5 MCG 6.9GM INH SCH ×2 (05:18→18:15)
[2019-04-18] MEDS: LEVOTHYROXINE SOD 0.05 MG TAB PO SCH (06:00)
[2019-04-18 07:15] VITALS: BP 154/78
[2019-04-18] MEDS: ACETAMINOPHEN 325 MG TAB PO PRN (07:49)
[2019-04-18] MEDS: ASPIRIN 81 MG ENTERIC COATED PO SCH (08:55)
[2019-04-18] MEDS: CALCIUM CARBONATE/VITAMIN D3 PO SCH ×2 (08:55→17:22)
[2019-04-18] MEDS: LOSARTAN POTASSIUM 50 MG TAB PO SCH (08:55)
[2019-04-18] MEDS: DOCUSATE SODIUM 100 MG CAP PO SCH ×2 (08:55→20:38)
[2019-04-18] MEDS: MONTELUKAST SODIUM 10 MG TAB PO SCH (08:55)
[2019-04-18] MEDS: POLYETHYLENE GLYCOL 17 GM PKT PO SCH (09:00)
[2019-04-18] MEDS: HYDROCORTISONE 1% CR 28.35 GM TP SCH ×2 (10:39→20:38)
--- NOTE | 2019-04-18 15:07 | Medical Nutrition Therapy ---
Nutrition Anthropometrics Height (Inches): 60 ((From visit on 12/20/12)) Weight (Pounds): 160 [place] Nutrition Score: Probably Inadequate [place] Nutrition Risk Score: 16 Dietary Referral Nutrition Risk Factors: Nutrition Risk Comment: Physical Findings Physical Appearance: Skin Appearance Skin Appearance: Edema Edema Location Modifier: Both Edema Location: Lower Extremity Non-Pitting Type of Edema: Degree of Edema: Gastrointestinal Symptoms GI Symtoms: Constipation Tube Present: Bowel Sounds: Recent Bowel Pattern: Stool Characteristics: Nutrition/Food History Good (Reports good appetite at home) Nutritional Diagnosis Nutritional Risk Acuity 3: Fx & > 80 yrs Past Medical History: COPD, HTN, CKD, Hypothyroid, CKD, Chronic Pain Nutritional Acuity: 3-Mild Energy Requirement: 1442 ([place] St. Jeor (Activity Factor 1.3)) Protein Requirement: 73 (1-1.2gkg (73-87g/day)) Fluid Requirement: 2190 (30mL/kg) Nutrition Intervention: Encourage intake, Vit/min support Nutrition Monitoring & Eval Nutrition Goals: Eat 75-100% Meal Nutritional Goals Comment: Maintain Weight, Eat 75-100% to promote healing, Eat 20-30g protein per meal Nutrition Follow-Up: Good Intake Nutrition Monitoring: Weight/Height (Requested 04/18/19), Monitor Appetite, Intake RD Patient Assessment Time: [address] Assessment Type: RD Assessment Patient Nutrition Acuity: 3-Mild Follow Up Date: Apr 22, 2019 Nutritional Comment: 04/18/19: Spoke with pt this afternoon, stated appetite has not been good here because she hasn't been moving around. Pt admitted to ECF s/p pubic ramus fx. PMH includes COPD, HTN, Hypothyroid, CKD, Chronic Pain. Pertinent active rx include MOM, miralax, colace, oxycodone, and lovastatin. Ca/D3 supplement initiated. Pt has BLE non-pitting edema. Pt eating well average intake on ECF ~80% of meals. Requested new height and weight. Spoke with pt downstairs about importance of protein for healing. Will continue to follow and monitor appetite, weight, protein intake.HYACINTH RAMÍREZ Apr 18, 2019 15:07
--- NOTE | 2019-04-18 15:12 | NUR ---
Notified pt of care conference scheduled for 04/22 at 1345. Would like to speak with her before deciding if she would like her daughters involved.
--- NOTE | 2019-04-18 15:31 | NUR ---
Physical Therapy Impression Pt able to stand from the chair with Min Ax2 with CGA assist provided for pivot to commode. Pt able to stand from commode with Min A x2 to RW. With strong encouragement, Pt ambulated 15' with RW and CGA x2. Pt reports feeling anxious with ambulation. Pt was pre-medicated prior to PT/OT session. Physical Therapy Goals 1. Mod I bed mobility. 2. Mod I transfers. 3. Mod I gait x 50' with RW. 4. Ascend/descend 4 stairs without rail and CGA. 5. Pt able to negotiate ramp with SBA. 6. Pt able to pick object up off floor with SBA. Patient's Goals
[2019-04-18 16:24] VITALS: BP 92/59
--- NOTE | 2019-04-18 16:24 | Miscellaneous Provider Note ---
Miscellaneous Provider Note Note Nursing staff called to report that the patient's urine was cloudy and foul smelling. The patient was also noted to be more confused today. She has not had fever. UA showed pyuria and moderate leukocyte esterase. Ceftin 250mg bid was started and culture is pending. Will modify therapy as needed based on culture results when available. BRYAN PATEL MD Apr 18, 2019 16:24
[2019-04-18 16:31] VITALS: BP 101/60
[2019-04-18] MEDS ORDERED: CEFUROXIME AXETIL 250 MG TAB PO ONE (18:00)
[2019-04-18] MEDS: LOVASTATIN 20 MG TAB PO SCH (20:38)
[2019-04-18] MEDS: VERAPAMIL HCL SR 180 MG TABCR PO SCH (20:38)
[2019-04-19] MEDS: BUDESO/FORMOT 80/4.5 MCG 6.9GM INH SCH ×2 (05:19→18:31)
[2019-04-19] MEDS: LEVOTHYROXINE SOD 0.05 MG TAB PO SCH (05:31)
[2019-04-19] MEDS: MAGNESIUM HYDROXIDE* 30ML UDCP PO PRN ×2 (05:52→21:25)
[2019-04-19] MEDS: LOSARTAN POTASSIUM 50 MG TAB PO SCH (09:00)
[2019-04-19] MEDS: MONTELUKAST SODIUM 10 MG TAB PO SCH (09:18)
[2019-04-19] MEDS: HYDROCORTISONE 1% CR 28.35 GM TP SCH ×2 (09:18→21:24)
[2019-04-19] MEDS: CEFUROXIME AXETIL 250 MG TAB PO SCH ×2 (09:18→21:24)
[2019-04-19] MEDS: POLYETHYLENE GLYCOL 17 GM PKT PO SCH (09:18)
[2019-04-19] MEDS: CALCIUM CARBONATE/VITAMIN D3 PO SCH ×2 (09:18→17:18)
[2019-04-19] MEDS: ASPIRIN 81 MG ENTERIC COATED PO SCH (09:18)
[2019-04-19] MEDS: DOCUSATE SODIUM 100 MG CAP PO SCH ×2 (09:18→21:24)
[2019-04-19] MEDS: oxyCODONE HCL 5 MG CAP PO PRN ×2 (09:19→21:29)
[2019-04-19 09:56] VITALS: BP 137/75
[2019-04-19 16:35] VITALS: BP 116/69
--- NOTE | 2019-04-19 18:08 | NUR ---
Pt is encouraged to get out of bed, refused for breakfast and lunch. Family reports this is baseline for pt, she gets up to go to the restroom during the day. Pt agreed to get up for dinner, sat on side of bed. Will continue to encourage movement during day.
[2019-04-19 20:29] VITALS: BP 123/70
[2019-04-19] MEDS: LOVASTATIN 20 MG TAB PO SCH (21:24)
[2019-04-19] MEDS: VERAPAMIL HCL SR 180 MG TABCR PO SCH (21:24)
[2019-04-20] MEDS: BUDESO/FORMOT 80/4.5 MCG 6.9GM INH SCH ×2 (05:23→17:59)
[2019-04-20] MEDS: LEVOTHYROXINE SOD 0.05 MG TAB PO SCH (06:07)
[2019-04-20] MEDS: ACETAMINOPHEN 325 MG TAB PO PRN ×2 (06:08→23:14)
[2019-04-20 07:15] VITALS: BP 92/57
[2019-04-20] MEDS: LOSARTAN POTASSIUM 50 MG TAB PO SCH (07:55)
[2019-04-20] MEDS: POLYETHYLENE GLYCOL 17 GM PKT PO SCH (08:44)
[2019-04-20] MEDS: CEFUROXIME AXETIL 250 MG TAB PO SCH ×2 (08:45→20:36)
[2019-04-20] MEDS: MONTELUKAST SODIUM 10 MG TAB PO SCH (08:45)
[2019-04-20] MEDS: DOCUSATE SODIUM 100 MG CAP PO SCH ×2 (08:45→20:36)
[2019-04-20] MEDS: CALCIUM CARBONATE/VITAMIN D3 PO SCH ×2 (08:45→17:27)
[2019-04-20] MEDS: oxyCODONE HCL 5 MG CAP PO PRN ×2 (08:45→20:37)
[2019-04-20] MEDS: ASPIRIN 81 MG ENTERIC COATED PO SCH (08:45)
--- NOTE | 2019-04-20 10:51 | Antimicrobial Stewardship ---
Antimicrobial Stewardship Empiricly appropriate: Yes Comment Started on Ceftin 250 mg bid for UTI Approriate Cultures done: Yes Review the antibiotic sensitiv: Yes (Sensitive to all. ) Reviewed for Drug Interaction: Yes Clinically stable/improving: Yes Determine standard duration: 5-7 days GALO WELLS Apr 20, 2019 10:51
[2019-04-20] MEDS: HYDROCORTISONE 1% CR 28.35 GM TP SCH ×2 (11:00→20:36)
[2019-04-20 15:40] VITALS: BP 110/61
[2019-04-20] MEDS: LOVASTATIN 20 MG TAB PO SCH (20:36)
[2019-04-20] MEDS: VERAPAMIL HCL SR 180 MG TABCR PO SCH ×2 (20:36→20:40)
[2019-04-21] MEDS: oxyCODONE HCL 5 MG CAP PO PRN ×2 (03:45→14:42)
[2019-04-21] MEDS: LEVOTHYROXINE SOD 0.05 MG TAB PO SCH (05:53)
[2019-04-21] MEDS: ACETAMINOPHEN 325 MG TAB PO PRN ×2 (05:54→20:32)
[2019-04-21] MEDS: BUDESO/FORMOT 80/4.5 MCG 6.9GM INH SCH ×2 (06:10→17:26)
[2019-04-21 07:30] VITALS: BP 107/63
[2019-04-21] MEDS: LOSARTAN POTASSIUM 50 MG TAB PO SCH (08:51)
[2019-04-21] MEDS: DOCUSATE SODIUM 100 MG CAP PO SCH ×2 (08:52→20:32)
[2019-04-21] MEDS: CEFUROXIME AXETIL 250 MG TAB PO SCH ×2 (08:52→20:32)
[2019-04-21] MEDS: CALCIUM CARBONATE/VITAMIN D3 PO SCH ×2 (08:52→17:05)
[2019-04-21] MEDS: ASPIRIN 81 MG ENTERIC COATED PO SCH (08:53)
[2019-04-21] MEDS: POLYETHYLENE GLYCOL 17 GM PKT PO SCH (08:53)
[2019-04-21] MEDS: HYDROCORTISONE 1% CR 28.35 GM TP SCH ×2 (08:53→20:32)
[2019-04-21] MEDS: MONTELUKAST SODIUM 10 MG TAB PO SCH (08:53)
--- NOTE | 2019-04-21 09:38 | NUR ---
Physical Therapy Impression Patient was CGA with transfer from chair to stand with mod cues for sequencing and proper positioning.Patient instructed in gait training with w/c follow and OT assist for safety as patient was mod A on Sunday. Patient ambulated ~70 feet with one seated rest break with step through slow antalgic gait. Patient was anxious but did better with questions to distract her from her anxiety. Patient has greatly improved since Sunday and will no longer need co treatment. Physical Therapy Goals 1. Mod I bed mobility. 2. Mod I transfers. 3. Mod I gait x 50' with RW. 4. Ascend/descend 4 stairs without rail and CGA. 5. Pt able to negotiate ramp with SBA. 6. Pt able to pick object up off floor with SBA. Patient's Goals
--- NOTE | 2019-04-21 10:24 | NUR ---
Occupational Therapy Impression CGA sit<>stands. CGA ambulation x75ft with RW and one seated rest break. Pt declined further ADLs. Plan to split up PT/OT in future tx sessions as pt demonstrates significant improvement. Occupational Therapy Goals 1) Pt will be Mod (I) UB/LB dressing. 2) Pt will be Mod (I) toilet task. 3) Pt will be Mod (I) grooming/hygiene. 4) Pt will be Min A shower task. 5) Pt Lio Index of ADLs score will improve by 2 points. Patient's Goal
--- NOTE | 2019-04-21 14:29 | Hospitalist Progress Note ---
Subjective Progress Notes Subjective The patient's back is itching. No other places are bothering her. Physical Exam Vital Signs Date Time Temp Pulse Resp B/P (MAP) Pulse Ox O2 Delivery O2 Flow Rate FiO2 04/21/19 12:09 80 04/21/19 10:32 Nasal Cannula 3.0 04/21/19 07:30 93.3 67 15 107/63 (78) Intake and Output 04/21/19 07:03 Intake Total 340 ml Balance 340 ml Intake Oral 340 ml # Voids 3 # Bowel Movements 2 General Appearance: Alert, Awake, No Acute Distress Neuro: No Gross deficits Eyes: PERRLA Cardiovascular: Regular Rate and Rhythm Respiratory: Clear to Auscultation (Anteriorly.) GI: Soft and Non-Tender Extremities: Warm, Perfused, Edema (Trace bilateral LE.) Integumentary: Scaly / Dry Skin, Other (Back with a maculopapular rash covering the entire back.) Psych: Alert & Oriented X3, Appropriate Mood & Affect Assessment and Plan Problems: (1) Pubic ramus fracture Status: Acute Assessment & Plan: She presented with right hip pain after fall. She was found to have right superior and inferior pubic ramus fracture. Receiving Oxycodone and Tylenol prn for pain control, she states that pain is well controlled. PT/OT is working with her and recommended further rehab for strengthening so she was transferred to [facility]. Fracture is non operable, per Dr. Gamble. (2) Anemia Status: Acute Assessment & Plan: Transfused 2 units PRBC's on 04/16. H&H improved on this mornings labs. No obvious bleeding. Pt has remained asymptomatic. Will continue to monitor. Labs ordered for 04/23. (3) COPD (chronic obstructive pulmonary disease) Status: Chronic Assessment & Plan: Continue chronic Symbicort and albuterol inhaler. She is chronically on 3L oxygen at baseline. (4) Hypertension Status: Chronic Assessment & Plan: Continue chronic Losartan and Verapamil with hold parameters. Will continue to hold Chlorthalidone for now, as Blood Pressure had been stable without it. (5) Hypothyroidism Status: Chronic Assessment & Plan: Continue chronic Levothyroxine. (6) Aortic valve stenosis Status: Chronic Assessment & Plan: Patient of Dr. Gomez. Recent echo shows moderate aortic valve stenosis. Will continue to be conservative with any fluid needs. No issues noted with blood transfusion on 04/16. (7) CKD (chronic kidney disease) Status: Chronic Assessment & Plan: Baseline creatinine is 1.7. Her creatinine was initially slightly elevated from baseline on admission, but has improved. Will monitor periodically. (8) Confusion Status: Acute Assessment & Plan: Pt seems more alert. She has been able to answer questions appropriately. (9) Chronic pain Status: Chronic Assessment & Plan: She denies any chronic pain other than arthritic pain, for which she takes Ibuprofen. She denies taking Oxycodone, and agrees that she does not take any other pain medications at home. Pt states she is having no pain except for while transferring, and then it is manageable with current pain regimen. (10) Rash Status: Acute Assessment & Plan: Only over her back. Will order soda linens. Time Spent on Plan of Care: < 30 min BRYAN PATEL MD Apr 21, 2019 14:29
--- NOTE | 2019-04-21 14:34 | Medical Nutrition Therapy ---
Nutrition Anthropometrics Height (Inches): 60 ((From visit on 12/20/12)) Weight (Pounds): 154 Weight (Calculated Kilograms): 69.853 BMI: 30.1 [place] Nutrition Score: Probably Inadequate [place] Nutrition Risk Score: 16 Dietary Referral Nutrition Risk Factors: Nutrition Risk Comment: Physical Findings Physical Appearance: Obese BMI 30-39 Skin Appearance Skin Appearance: Edema Edema Location Modifier: Both Edema Location: Lower Extremity Type of Edema: Degree of Edema: 1+ Gastrointestinal Symptoms GI Symtoms: Constipation Tube Present: Bowel Sounds: Recent Bowel Pattern: Stool Characteristics: Nutrition/Food History Good Nutritional Diagnosis Nutritional Risk Acuity 3: Fx & > 80 yrs Past Medical History: COPD, HTN, CKD, Hypothyroid, CKD, Chronic Pain Nutritional Acuity: 3-Mild Energy Requirement: 1442 ([place] St. Jeor (Activity Factor 1.3)) Protein Requirement: 73 (1-1.2gkg (73-87g/day)) Fluid Requirement: 2190 (30mL/kg) Nutrition Intervention: Encourage intake, Vit/min support Nutrition Monitoring & Eval Nutrition Goals: Eat 75-100% Meal Nutrition Follow-Up: Good Intake, Fair Intake Nutrition Monitoring: Intake, Weights RD Patient Assessment Time: [address] Assessment Type: RD Re-Assessment Patient Nutrition Acuity: 3-Mild Follow Up Date: Apr 29, 2019 Nutritional Comment: 04/18/19: Spoke with pt this afternoon, stated appetite has not been good here because she hasn't been moving around. Pt admitted to ECF s/p pubic ramus fx. PMH includes COPD, HTN, Hypothyroid, CKD, Chronic Pain. Pertinent active rx include MOM, miralax, colace, oxycodone, and lovastatin. Ca/D3 supplement initiated. Pt has BLE non-pitting edema. Pt eating well average intake on ECF ~80% of meals. Requested new height and weight. Spoke with pt downstairs about importance of protein for healing. Will continue to follow and monitor appetite, weight, protein intake.JENIFER 04/21/19: Pt intake varies, from bites of meals to 100%. Wt is down slightly from 160 lbs on 04/18/19 to 154 lbs 04/21/19. Has BLE 1+ pitting edema. Recently started on ceftin for UTI. Recommend adding probiotic to preven antibiotic associated diarrhea. Will ask pt if she is willing to try Boost or a milkshake with beneprotein. Will continue to monitor intakes, weight, and encourage adequate protein intake.HYACINTH RAMÍREZ Apr 21, 2019 14:34
--- NOTE | 2019-04-21 14:43 | ECF History & Physical ---
Transfer Summary (ECF/SWB) Problems: (1) Pubic ramus fracture Status: Acute Assessment & Plan: She presented with right hip pain after fall. She was found to have right superior and inferior pubic ramus fracture. Receiving Oxycodone and Tylenol prn for pain control, she states that pain is well controlled. PT/OT is working with her and recommending further rehab for strengthening. Fracture is non operable, per Dr. Gamble. (2) Anemia Status: Acute Assessment & Plan: Transfused 2 units PRBC's on 04/16. H&H improved on this mornings labs. No obvious bleeding. Pt has remained asymptomatic. Will continue to monitor. (3) COPD (chronic obstructive pulmonary disease) Status: Chronic Assessment & Plan: Continue chronic Symbicort and albuterol inhaler. She is chronically on 3L oxygen at baseline. (4) Hypertension Status: Chronic Assessment & Plan: Continue chronic Losartan and Verapamil with hold parameters. Will continue to hold Chlorthalidone for now, as Blood Pressure had been stable without it. (5) Hypothyroidism Status: Chronic Assessment & Plan: Continue chronic Levothyroxine. (6) Aortic valve stenosis Status: Chronic Assessment & Plan: Patient of Dr. Gomez. Recent echo shows moderate aortic valve stenosis. Will continue to be conservative with any fluid needs. No issues noted with blood transfusion on 04/16. (7) CKD (chronic kidney disease) Status: Chronic Assessment & Plan: Baseline creatinine is 1.7. Her creatinine was slightly elevated from baseline on admission, but has improved. (8) Confusion Assessment & Plan: Pt seems more alert. She has been able to answer questions appropriately. (9) Chronic pain Status: Chronic Assessment & Plan: She denies any chronic pain other than arthritic pain, for which she takes Ibuprofen. She denies taking Oxycodone, and agrees that she does not take any other pain medications at home. Pt states she is having no pain except for while transferring, and then it is manageable with current pain regimen. Latest Vital Signs Vital Signs Date Time Temp Pulse Resp B/P (MAP) Pulse Ox O2 Delivery O2 Flow Rate FiO2 04/17/19 09:15 127/74 (91) 04/17/19 08:15 High-Flow Nasal Cannula 04/17/19 07:45 93 4.0 04/17/19 07:33 98.8 68 04/17/19 03:39 16 Result Diagram: 04/17/1942904/17/19429 Condition: Improved Disposition: SNF/NH Treatment Goals and Plan Patient requires long-term and/or skilled rehabilitation with the goal to increase independence with ADL's, functional strength and mobility. Continue and adjust medication regimen. Services Required: PT, OT Copies To 1: FRANCI ECHEVARRIA MD ; Problem Qualifiers (1) Hypertension: Hypertension type: essential hypertension Qualified Codes: I10 - Essential (primary) hypertension GAIL ROCHA Apr 17, 2019 09:53 <Electronically signed by GAIL ROCHA> D/ [id number] KEE/DENY CC: FRANCI ECHEVARRIA MD MTDD
[2019-04-21 15:25] VITALS: BP 127/65
[2019-04-21 19:58] VITALS: BP 147/66
[2019-04-21] MEDS: LOVASTATIN 20 MG TAB PO SCH (20:32)
[2019-04-21] MEDS: VERAPAMIL HCL SR 180 MG TABCR PO SCH (20:32)
[2019-04-22] MEDS: BUDESO/FORMOT 80/4.5 MCG 6.9GM INH SCH ×2 (05:39→17:17)
[2019-04-22] MEDS: LEVOTHYROXINE SOD 0.05 MG TAB PO SCH (06:02)
[2019-04-22] MEDS: ACETAMINOPHEN 325 MG TAB PO PRN (06:03)
[2019-04-22 07:20] VITALS: BP 116/54
[2019-04-22] MEDS: DOCUSATE SODIUM 100 MG CAP PO SCH ×2 (08:56→21:02)
[2019-04-22] MEDS: LOSARTAN POTASSIUM 50 MG TAB PO SCH (08:56)
[2019-04-22] MEDS: CEFUROXIME AXETIL 250 MG TAB PO SCH ×2 (08:56→21:01)
[2019-04-22] MEDS: CALCIUM CARBONATE/VITAMIN D3 PO SCH ×2 (08:56→17:34)
[2019-04-22] MEDS: ASPIRIN 81 MG ENTERIC COATED PO SCH (08:56)
[2019-04-22] MEDS: MONTELUKAST SODIUM 10 MG TAB PO SCH (08:56)
[2019-04-22] MEDS: POLYETHYLENE GLYCOL 17 GM PKT PO SCH (08:57)
[2019-04-22] MEDS: HYDROCORTISONE 1% CR 28.35 GM TP SCH ×2 (08:57→21:01)
--- NOTE | 2019-04-22 10:02 | NUR ---
Occupational Therapy Impression CGA sit<>stands with v/c's for appropriate sequencing, minimal carryover. Total A to manage O2 tubing. CGA ambulation 2x50ft with RW. Mod (I) LB dressing with pbx supervisor/sock aid. Education re: equipment for safe bathtub transfers. CGA oral care standing sinkfront [id number]. CGA toileting with cues to sequence kp-care and dressing. Continue POC and discussion for appropriate AE needs. Occupational Therapy Goals 1) Pt will be Mod (I) UB/LB dressing. 2) Pt will be Mod (I) toilet task. 3) Pt will be Mod (I) grooming/hygiene. 4) Pt will be Min A shower task. 5) Pt Lio Index of ADLs score will improve by 2 points. Patient's Goal
[2019-04-22] MEDS: oxyCODONE HCL 5 MG CAP PO PRN ×2 (11:16→21:02)
--- NOTE | 2019-04-22 11:34 | NUR ---
Physical Therapy Impression Pt had reported pain prior to initial offer of PT and has not had pain medication aside from Tylenol today. Pt requested to be pre-medicated and PT returned 45 minutes later for actual therapy session. Pt tolerated ambulation to BR and then completed TUG test from doorway and back in 1 minute, 10 seconds. Physical Therapy Goals 1. Mod I bed mobility. 2. Mod I transfers. 3. Mod I gait x 50' with RW. 4. Ascend/descend 4 stairs without rail and CGA. 5. Pt able to negotiate ramp with SBA. 6. Pt able to pick object up off floor with SBA. Patient's Goals
[2019-04-22 16:18] VITALS: BP 137/69
[2019-04-22 20:30] VITALS: BP 130/77
[2019-04-22] MEDS: VERAPAMIL HCL SR 180 MG TABCR PO SCH (21:01)
[2019-04-22] MEDS: LOVASTATIN 20 MG TAB PO SCH (21:01)
[2019-04-23] MEDS: LEVOTHYROXINE SOD 0.05 MG TAB PO SCH (05:37)
[2019-04-23] MEDS: BUDESO/FORMOT 80/4.5 MCG 6.9GM INH SCH ×2 (05:52→17:24)
[2019-04-23 06:52] LABS: PLATELET COUNT, AUTOMATED 339 K/uL (150-450)
[2019-04-23 07:30] VITALS: BP 133/61
[2019-04-23] MEDS: CALCIUM CARBONATE/VITAMIN D3 PO SCH ×2 (08:39→17:06)
[2019-04-23] MEDS: oxyCODONE HCL 5 MG CAP PO PRN ×2 (08:39→18:46)
[2019-04-23] MEDS: POLYETHYLENE GLYCOL 17 GM PKT PO SCH (08:39)
[2019-04-23] MEDS: DOCUSATE SODIUM 100 MG CAP PO SCH ×2 (08:39→20:41)
[2019-04-23] MEDS: ASPIRIN 81 MG ENTERIC COATED PO SCH (08:39)
[2019-04-23] MEDS: HYDROCORTISONE 1% CR 28.35 GM TP SCH ×2 (08:39→21:00)
[2019-04-23] MEDS: CEFUROXIME AXETIL 250 MG TAB PO SCH ×2 (08:39→20:41)
[2019-04-23] MEDS: MONTELUKAST SODIUM 10 MG TAB PO SCH (08:39)
[2019-04-23] MEDS: LOSARTAN POTASSIUM 50 MG TAB PO SCH (08:42)
--- NOTE | 2019-04-23 11:20 | NUR ---
Physical Therapy Impression Patient is CGA for transfers as she is not safe with her transfers and needs mod cues for sequencing and safety. Patient instructed in gait training with FWW ~60 feet with two seated rest breaks CGA and max encouragement to increase distance. At the end of 60 feet patient requested to go back to room and to be done with therapy. Physical Therapy Goals 1. Mod I bed mobility. 2. Mod I transfers. 3. Mod I gait x 50' with RW. 4. Ascend/descend 4 stairs without rail and CGA. 5. Pt able to negotiate ramp with SBA. 6. Pt able to pick object up off floor with SBA. Patient's Goals
--- NOTE | 2019-04-23 11:30 | NUR ---
Occupational Therapy Impression CGA ambulation to/from toilet with RW. CGA ambulation 2x20ft with one seated rest break. Max-Total A to manage O2 tubing. CGA toileting. Independent threading brief. CGA pulling brief over hips. CGA standing sinkfront for hand hygiene. Pt declining further intervention due to pain. Seated up in chair with all needs addressed. Continue POC. Occupational Therapy Goals 1) Pt will be Mod (I) UB/LB dressing. 2) Pt will be Mod (I) toilet task. 3) Pt will be Mod (I) grooming/hygiene. 4) Pt will be Min A shower task. 5) Pt Lio Index of ADLs score will improve by 2 points. Patient's Goal
[2019-04-23 16:25] VITALS: BP 123/67
[2019-04-23] MEDS: VERAPAMIL HCL SR 180 MG TABCR PO SCH (20:41)
[2019-04-23] MEDS: LOVASTATIN 20 MG TAB PO SCH (20:42)
[2019-04-24] MEDS: LEVOTHYROXINE SOD 0.05 MG TAB PO SCH (05:22)
[2019-04-24] MEDS: ACETAMINOPHEN 325 MG TAB PO PRN (05:23)
[2019-04-24] MEDS: BUDESO/FORMOT 80/4.5 MCG 6.9GM INH SCH ×2 (05:33→18:02)
[2019-04-24 07:30] VITALS: BP 117/66
[2019-04-24] MEDS: LOSARTAN POTASSIUM 50 MG TAB PO SCH (09:00)
[2019-04-24] MEDS: MONTELUKAST SODIUM 10 MG TAB PO SCH (09:09)
[2019-04-24] MEDS: CALCIUM CARBONATE/VITAMIN D3 PO SCH ×2 (09:09→16:51)
[2019-04-24] MEDS: ASPIRIN 81 MG ENTERIC COATED PO SCH (09:09)
[2019-04-24] MEDS: DOCUSATE SODIUM 100 MG CAP PO SCH ×2 (09:10→20:35)
[2019-04-24] MEDS: HYDROCORTISONE 1% CR 28.35 GM TP SCH ×2 (09:10→20:35)
[2019-04-24] MEDS: POLYETHYLENE GLYCOL 17 GM PKT PO SCH (09:10)
[2019-04-24] MEDS: oxyCODONE HCL 5 MG CAP PO PRN ×2 (09:51→19:57)
--- NOTE | 2019-04-24 10:34 | NUR ---
Occupational Therapy Impression Requiring significant encouragement to initiate ADLs, poor tolerance for activity. Pt with no carryover for sequencing sit<>stands and stand<>sit. Completed x3 with v/c's. CGA ambulation x50ft with RW. Mod A LB dressing, Min A UB dressing. Decreased initiation to dress, requesting assist. Refused further ADLs and tx. Reports "I wasn't even doing much before." Continue POC. Occupational Therapy Goals 1) Pt will be Mod (I) UB/LB dressing. 2) Pt will be Mod (I) toilet task. 3) Pt will be Mod (I) grooming/hygiene. 4) Pt will be Min A shower task. 5) Pt Lio Index of ADLs score will improve by 2 points. Patient's Goal
[2019-04-24 17:35] VITALS: BP 105/65
--- NOTE | 2019-04-24 17:57 | NUR ---
Physical Therapy Impression Pt declines ambulation but is agreeable to ther ex for strengthening. Pt notes that she just received her pain medication. Pt tolerated both seated and reclined sitting ther ex, with decreased AROM available on R) LE but good effort noted throughout. Physical Therapy Goals 1. Mod I bed mobility. 2. Mod I transfers. 3. Mod I gait x 50' with RW. 4. Ascend/descend 4 stairs without rail and CGA. 5. Pt able to negotiate ramp with SBA. 6. Pt able to pick object up off floor with SBA. Patient's Goals
[2019-04-24] MEDS: LOVASTATIN 20 MG TAB PO SCH (20:35)
[2019-04-24] MEDS: VERAPAMIL HCL SR 180 MG TABCR PO SCH (20:35)
[2019-04-25] MEDS: ACETAMINOPHEN 325 MG TAB PO PRN ×2 (03:29→20:26)
[2019-04-25] MEDS: BUDESO/FORMOT 80/4.5 MCG 6.9GM INH SCH ×2 (05:38→17:28)
[2019-04-25] MEDS: LEVOTHYROXINE SOD 0.05 MG TAB PO SCH (06:06)
[2019-04-25 07:21] VITALS: BP 116/65
[2019-04-25] MEDS: oxyCODONE HCL 5 MG CAP PO PRN ×2 (08:12→15:46)
[2019-04-25] MEDS: LOSARTAN POTASSIUM 50 MG TAB PO SCH (08:21)
[2019-04-25] MEDS: ASPIRIN 81 MG ENTERIC COATED PO SCH (08:22)
[2019-04-25] MEDS: DOCUSATE SODIUM 100 MG CAP PO SCH ×2 (08:22→20:26)
[2019-04-25] MEDS: MONTELUKAST SODIUM 10 MG TAB PO SCH (08:22)
[2019-04-25] MEDS: POLYETHYLENE GLYCOL 17 GM PKT PO SCH (08:22)
[2019-04-25] MEDS: HYDROCORTISONE 1% CR 28.35 GM TP SCH ×2 (08:22→20:26)
[2019-04-25] MEDS: CALCIUM CARBONATE/VITAMIN D3 PO SCH ×2 (08:22→16:51)
--- NOTE | 2019-04-25 11:15 | NUR ---
Physical Therapy Impression Patient has carryover with transfer training as she is able to recall proper positioning and sequence for transfers and she is SBA. Patient instructed in gait training with FWW with max yaritzaing for encouragement to keep going. Patient was able to increase her distance today as she as she ambulated 56 feet with a seated rest break then 82 feet with a seated rest break and then 33 feet. Patient could ambulate further but gets very anxious and then refuses to do more. Patient encouraged that she is doing well and needs to push herself a little to improve her strength and her mobility to improve I when she returns home. Ambulation was CGA. Physical Therapy Goals 1. Mod I bed mobility. 2. Mod I transfers. 3. Mod I gait x 50' with RW. 4. Ascend/descend 4 stairs without rail and CGA. 5. Pt able to negotiate ramp with SBA. 6. Pt able to pick object up off floor with SBA. Patient's Goals
--- NOTE | 2019-04-25 12:32 | NUR ---
Occupational Therapy Impression CGA/SBA ambulation 2x20ft, x15ft, x30ft during functional ADLs. Improved sequencing of sit<>stands. Initiated education for O2 tubing management as pt requires Max A to manage O2. Set-up UB dressing. SBA with v/c's LB dressing with cement tile maker. SBA oral care. UB ther ex. Pt frequently reporting "that's enough." Significant encouragement and education provided to continue session. Continue POC. Occupational Therapy Goals 1) Pt will be Mod (I) UB/LB dressing. 2) Pt will be Mod (I) toilet task. 3) Pt will be Mod (I) grooming/hygiene. 4) Pt will be Min A shower task. 5) Pt Lio Index of ADLs score will improve by 2 points. Patient's Goal
[2019-04-25 16:55] VITALS: BP 140/66
[2019-04-25] MEDS: VERAPAMIL HCL SR 180 MG TABCR PO SCH (20:26)
[2019-04-25] MEDS: LOVASTATIN 20 MG TAB PO SCH (20:26)
[2019-04-26] MEDS: LEVOTHYROXINE SOD 0.05 MG TAB PO SCH (05:53)
[2019-04-26] MEDS: BUDESO/FORMOT 80/4.5 MCG 6.9GM INH SCH ×2 (06:06→17:10)
[2019-04-26] MEDS: ACETAMINOPHEN 325 MG TAB PO PRN ×2 (06:27→20:22)
[2019-04-26 07:39] VITALS: BP 126/71
[2019-04-26] MEDS: POLYETHYLENE GLYCOL 17 GM PKT PO SCH (08:31)
[2019-04-26] MEDS: MONTELUKAST SODIUM 10 MG TAB PO SCH (08:31)
[2019-04-26] MEDS: LOSARTAN POTASSIUM 50 MG TAB PO SCH (08:31)
[2019-04-26] MEDS: CALCIUM CARBONATE/VITAMIN D3 PO SCH ×2 (08:31→17:48)
[2019-04-26] MEDS: HYDROCORTISONE 1% CR 28.35 GM TP SCH ×2 (08:32→20:22)
[2019-04-26] MEDS: ASPIRIN 81 MG ENTERIC COATED PO SCH (08:32)
[2019-04-26] MEDS: DOCUSATE SODIUM 100 MG CAP PO SCH ×2 (08:32→20:22)
--- NOTE | 2019-04-26 11:22 | NUR ---
ACTIVITIES: Was informed that pt. is not feeling well today and just wants to sleep and get caught up on rest, by RN. Will check with pt. after lunch to see if she'd like to make no bake cookies with other pts.
[2019-04-26 15:11] VITALS: BP 116/64
[2019-04-26 19:50] VITALS: BP 117/77
[2019-04-26] MEDS: VERAPAMIL HCL SR 180 MG TABCR PO SCH (20:21)
[2019-04-26] MEDS: oxyCODONE HCL 5 MG CAP PO PRN (20:22)
[2019-04-26] MEDS: LOVASTATIN 20 MG TAB PO SCH (20:22)
[2019-04-27] MEDS: LEVOTHYROXINE SOD 0.05 MG TAB PO SCH (04:44)
[2019-04-27] MEDS: ACETAMINOPHEN 325 MG TAB PO PRN ×2 (04:44→21:13)
[2019-04-27] MEDS: BUDESO/FORMOT 80/4.5 MCG 6.9GM INH SCH ×2 (05:28→17:10)
[2019-04-27 07:18] VITALS: BP 131/65
[2019-04-27] MEDS: HYDROCORTISONE 1% CR 28.35 GM TP SCH ×2 (08:26→21:09)
[2019-04-27] MEDS: POLYETHYLENE GLYCOL 17 GM PKT PO SCH (08:26)
[2019-04-27] MEDS: MONTELUKAST SODIUM 10 MG TAB PO SCH (08:26)
[2019-04-27] MEDS: LOSARTAN POTASSIUM 50 MG TAB PO SCH (08:26)
[2019-04-27] MEDS: CALCIUM CARBONATE/VITAMIN D3 PO SCH ×2 (08:26→17:44)
[2019-04-27] MEDS: DOCUSATE SODIUM 100 MG CAP PO SCH ×2 (08:26→21:09)
[2019-04-27] MEDS: ASPIRIN 81 MG ENTERIC COATED PO SCH (08:26)
[2019-04-27 15:58] VITALS: BP 123/63
[2019-04-27 21:00] VITALS: BP 149/56
[2019-04-27] MEDS: VERAPAMIL HCL SR 180 MG TABCR PO SCH (21:09)
[2019-04-27] MEDS: LOVASTATIN 20 MG TAB PO SCH (21:10)
[2019-04-28] MEDS: BUDESO/FORMOT 80/4.5 MCG 6.9GM INH SCH ×2 (05:22→17:09)
[2019-04-28] MEDS: LEVOTHYROXINE SOD 0.05 MG TAB PO SCH (06:30)
[2019-04-28 07:04] LABS: PLATELET COUNT, AUTOMATED 358 K/uL (150-450)
[2019-04-28 07:11] VITALS: BP 116/65
[2019-04-28] MEDS: POLYETHYLENE GLYCOL 17 GM PKT PO SCH (08:40)
[2019-04-28] MEDS: DOCUSATE SODIUM 100 MG CAP PO SCH ×2 (08:40→20:32)
[2019-04-28] MEDS: LOSARTAN POTASSIUM 50 MG TAB PO SCH (08:40)
[2019-04-28] MEDS: MONTELUKAST SODIUM 10 MG TAB PO SCH (08:40)
[2019-04-28] MEDS: ASPIRIN 81 MG ENTERIC COATED PO SCH (08:40)
[2019-04-28] MEDS: CALCIUM CARBONATE/VITAMIN D3 PO SCH ×2 (08:41→17:10)
[2019-04-28] MEDS: HYDROCORTISONE 1% CR 28.35 GM TP SCH (08:41)
[2019-04-28] MEDS: oxyCODONE HCL 5 MG CAP PO PRN ×2 (08:49→20:35)
[2019-04-28] MEDS: ACETAMINOPHEN 325 MG TAB PO PRN (08:49)
--- NOTE | 2019-04-28 11:18 | NUR ---
Physical Therapy Impression Patient is SBA for transfers with cuing for proper hand placement and management of oxygen line. Patient instructed in gait training with FWW ~125 feet with 2 standing rest breaks and max cuing to push from chair with transfers and max encouragement to increase distance. Patient is very anxious which interferes with her gait. Patient needs max cuing to manage oxygen line with transfers when going from STS.Patient ascended and descended 4 stairs CGA and cuing for sequencing and safety and management of oxygen line. Patient is very reluctant to push herself with therapy. She ambulated well with increased step length but is limited by her anxiousness. Physical Therapy Goals 1. Mod I bed mobility. 2. Mod I transfers. 3. Mod I gait x 50' with RW. 4. Ascend/descend 4 stairs without rail and CGA. 5. Pt able to negotiate ramp with SBA. 6. Pt able to pick object up off floor with SBA. Patient's Goals
[2019-04-28] MEDS ORDERED: HYDROCORTISONE 1% CR 28.35 GM TP PRN (13:40)
--- NOTE | 2019-04-28 13:51 | Hospitalist Progress Note ---
Subjective Progress Notes Subjective The patient states she would like to go home. Physical Exam Vital Signs Date Time Temp Pulse Resp B/P (MAP) Pulse Ox O2 Delivery O2 Flow Rate FiO2 04/28/19 07:55 95 Nasal Cannula 2.0 04/28/19 07:11 96.7 65 16 116/65 (82) Intake and Output 04/28/19 07:03 Intake Total 1020 ml Balance 1020 ml Intake Oral 1020 ml # Voids 3 # Bowel Movements 3 General Appearance: Alert, Awake, Other (Mild increased work of breathing today.) Neuro: Other (Answers questions appropriately today.) Eyes: PERRLA Cardiovascular: Regular Rate and Rhythm Respiratory: Other (Course breath sounds throughout with scattered wheezes. Most prominent in R anterior lung field. Coughing did cause some improvement.) GI: Soft and Non-Tender Extremities: Warm, Perfused, Edema Integumentary: Skin Intact without Lesion / Mass Psych: Appropriate Mood & Affect Result Diagram: 04/28/1961204/28/19612 Assessment and Plan Problems: (1) Pubic ramus fracture Status: Acute Assessment & Plan: She presented with right hip pain after fall. She was found to have right superior and inferior pubic ramus fracture. Receiving Oxycodone and Tylenol prn for pain control, she states that pain is well controlled. PT/OT is working with her and recommended further rehab for strengthening so she was transferred to [facility]. Fracture is non operable, per Dr. Gamble. (2) Anemia Status: Acute Assessment & Plan: Transfused 2 units PRBC's on 04/16. H&H improved on this mornings labs. No obvious bleeding. Pt has remained asymptomatic. Will continue to monitor. Labs stable. (3) COPD (chronic obstructive pulmonary disease) Status: Chronic Assessment & Plan: Continue chronic Symbicort and albuterol/Duonebs prn. She is chronically on 3L oxygen at baseline. Will order a treatment for today (Duoneb) as she is coarser than usual with some wheezing. The patient's O2 requirement is stable and she has no current fever. (4) Hypertension Status: Chronic Assessment & Plan: Continue chronic Losartan and Verapamil with hold parameters. Will continue to hold Chlorthalidone for now, as Blood Pressure had been stable without it. (5) Hypothyroidism Status: Chronic Assessment & Plan: Continue chronic Levothyroxine. (6) Aortic valve stenosis Status: Chronic Assessment & Plan: Patient of Dr. Gomez. Recent echo shows moderate aortic valve stenosis. Will continue to be conservative with any fluid needs. No issues noted with blood transfusion on 04/16. (7) CKD (chronic kidney disease) Status: Chronic Assessment & Plan: Baseline creatinine is 1.7. Her creatinine was initially slightly elevated from baseline on admission, but has improved. Will monitor periodically. (8) Confusion Status: Acute Assessment & Plan: Pt seems more alert. She has been able to answer questions appropriately. (9) Chronic pain Status: Chronic Assessment & Plan: She denies any chronic pain other than arthritic pain, for which she takes Ibuprofen. She denies taking Oxycodone, and agrees that she does not take any other pain medications at home. Pt states she is having no pain except for while transferring, and then it is manageable with current pain regimen. (10) Rash Status: Acute Assessment & Plan: Only over her back. Improved with soda linens. Will change hydrocortisone cream to prn. Time Spent on Plan of Care: < 30 min BRYAN PATEL MD Apr 28, 2019 13:51
[2019-04-28] MEDS: ALBUTEROL/IPRATROPIUM 3 ML NEB NEB PRN (14:03)
--- NOTE | 2019-04-28 16:09 | Medical Nutrition Therapy ---
Nutrition Anthropometrics Height (Inches): 60 ((From visit on 12/20/12)) Weight (Pounds): 155 Weight (Calculated Kilograms): 70.449 BMI: 30.1 [place] Nutrition Score: Probably Inadequate [place] Nutrition Risk Score: 17 Dietary Referral Nutrition Risk Factors: Nutrition Risk Comment: Physical Findings Physical Appearance: Obese BMI 30-39 Skin Appearance Skin Appearance: Edema Edema Location Modifier: Both Edema Location: Lower Extremity Type of Edema: Degree of Edema: 1+ Gastrointestinal Symptoms GI Symtoms: Constipation Tube Present: Bowel Sounds: Recent Bowel Pattern: Stool Characteristics: Nutritional Diagnosis Nutritional Risk Acuity 3: Fx & > 80 yrs Past Medical History: COPD, HTN, CKD, Hypothyroid, CKD, Chronic Pain Nutritional Acuity: 3-Mild Energy Requirement: 1442 (Critz St. Jeor (Activity Factor 1.3)) Protein Requirement: 73 (1-1.2gkg (73-87g/day)) Fluid Requirement: 2190 (30mL/kg) Nutrition Intervention: Encourage intake, Vit/min support Nutrition Monitoring & Eval Nutrition Monitoring: wt, intake, appetite RD Patient Assessment Time: [address] Assessment Type: RD Re-Assessment Patient Nutrition Acuity: 3-Mild Follow Up Date: May 06, 2019 Nutritional Comment: 04/18/19: Spoke with pt this afternoon, stated appetite has not been good here because she hasn't been moving around. Pt admitted to [facility] s/p pubic ramus fx. PMH includes COPD, HTN, Hypothyroid, CKD, Chronic Pain. Pertinent active rx include MOM, miralax, colace, oxycodone, and lovastatin. Ca/D3 supplement initiated. Pt has BLE non-pitting edema. Pt eating well average intake on [facility] ~80% of meals. Requested new height and weight. Spoke with pt downstairs about importance of protein for healing. Will continue to follow and monitor appetite, weight, protein intake.JENIFER 04/21/19: Pt intake varies, from bites of meals to 100%. Wt is down slightly from 160 lbs on 04/18/19 to 154 lbs 04/21/19. Has BLE 1+ pitting edema. Recently started on ceftin for UTI. Recommend adding probiotic to preven antibiotic associated diarrhea. Will ask pt if she is willing to try Boost or a milkshake with beneprotein. Will continue to monitor intakes, weight, and encourage adequate protein intake.JENIFER 04/28/19: Pt states appetite is good. Average meal intake x 19 meals ~72%. Wt currently stable at 155 lbs on 04/25. BUN and Cre are elevated (CKD). Will continue to monitor intake, weight, appetite, and healing needs.HYACINTH RAMÍREZ Apr 28, 2019 11:51
[2019-04-28 16:30] VITALS: BP_SYST 107; BP_SYST 116; BP_DIAS 62; BP_DIAS 68
--- NOTE | 2019-04-28 16:49 | NUR ---
ST IMPRESSION Cognitive linguistic assessment completed, including informal procedures paired with the MoCA (version 7.2). Formal report to follow. Pt achieved a score of 22/30, exhibiting mild deficits in the areas of memory (short-term, working), problem solving, and executive functions. Areas of strength noted in orientation, mental abstraction, and language skills (receptive, expressive). Of note, pt also demonstrated signs of anxiety when completing tasks of relative difficulty (increased respiratory rate, avoidance behaviors). Discussed with TREASURY ANALYST, team aware. Pt will benefit from ST interventions at 3x/wk, 2 weeks to support safe return to PLOF with independent completion of IADLs and to improve active role in rehabilitative/medical POC.
[2019-04-28] MEDS: LOVASTATIN 20 MG TAB PO SCH (20:32)
[2019-04-28 20:36] VITALS: BP 124/71
[2019-04-28] MEDS: VERAPAMIL HCL SR 180 MG TABCR PO SCH (20:37)
[2019-04-29] MEDS: LEVOTHYROXINE SOD 0.05 MG TAB PO SCH (05:23)
[2019-04-29] MEDS: ACETAMINOPHEN 325 MG TAB PO PRN (05:27)
[2019-04-29] MEDS: BUDESO/FORMOT 80/4.5 MCG 6.9GM INH SCH ×2 (05:42→17:47)
[2019-04-29 07:16] VITALS: BP 118/72
[2019-04-29 07:48] VITALS: BP 118/72
[2019-04-29] MEDS: LOSARTAN POTASSIUM 50 MG TAB PO SCH (08:45)
[2019-04-29] MEDS: MONTELUKAST SODIUM 10 MG TAB PO SCH (08:47)
[2019-04-29] MEDS: DOCUSATE SODIUM 100 MG CAP PO SCH ×2 (08:47→20:17)
[2019-04-29] MEDS: CALCIUM CARBONATE/VITAMIN D3 PO SCH ×2 (08:47→17:07)
[2019-04-29] MEDS: ASPIRIN 81 MG ENTERIC COATED PO SCH (08:47)
[2019-04-29] MEDS: POLYETHYLENE GLYCOL 17 GM PKT PO SCH (08:47)
--- NOTE | 2019-04-29 09:04 | SLP EVALUATION SUMMARY REPORT ---
INITIAL SPEECH THERAPY EVALUATION REPORT Cognitive Communication Assessment Patient Name: Kaylee Almendarez Date of Evaluation: 04/28/2019 Patient : [id number] Clinician: Ashlie Herndon M.S., CCC-POLE CLASSIFIER Treatment Dx: mild cognitive linguistic impairment BACKGROUND The patient is an 83-year-old female who presents to the [facility] for further rehabilitation due to persistent weakness following hospitalization at [facility] from 04/16/19-04/17/19 with a pelvic fracture. The pt was referred for an ST assessment to analyze cognitive linguistic status secondary to staff concerns re: memory impairment, reduced initiation, and difficulty with progression towards rehabilitative goals. Primary Medical Dx: Generalized weakness s/p recent hospital admission Past medical Hx: COPD, HTN, CKD, aortic valve stenosis, hypothyroidism, anemia Prior Level of Function: The pt lives in a private residence with her spouse. She was previously independent with ADLs and majority of IADLs. No longer drives. COGNITIVE LINGUISTIC ASSESSMENT Overall Summary: Pt exhibits mild cognitive linguistic deficits most notably characterized by reduced short-term memory, working memory, problem solving, and executive function skills. Etiology may be age-related and/or associated with pmhx of HTN and COPD. Cognitive linguistic assessment was completed at the bedside (spouse present), including informal measures paired with the Yosef Cognitive Assessment (MoCA), Version 7.2. Pt achieved a total score of 22/30 (26/30=WNL), indicative of mild cognitive linguistic deficits. She struggled to retain information both immediately and following a brief delay. She also either did not attend to errors, or acknowledged mistakes but did not make an attempt to correct information. During completion of tasks requiring executive function skills, the pt demonstrated some disorganization and difficulty with logical sequencing. Of note, pt also demonstrated signs of anxiety when completing tasks of relative difficulty (increased respiratory rate, avoidance behaviors). Discussed with STEEL SAMPLER, team aware. Relative areas of strength were observed in orientation, mental abstraction, and expressive language skills. Pt exhibits evolving insight into deficits, with endorsement of errors during transparent discussion of evaluation results. However, she did not independently acknowledge areas of difficulty. At this time, the pt appears to be functioning mildly below baseline from a cognitive-linguistic standpoint. Cognitive linguistic deficits may impede consistent recall for management of medications, finances, and scheduling, and may limit active participation in rehabilitative plan of care due to difficulty with prospective thinking and problem solving skills. Skilled ST services are warranted in a subacute rehab setting to continue assessment of cognitive linguistic skills and to provide patient instruction in strategies to support identified areas of impairment for safe and successful transition to prior level of function with independent completion of IADLs. Services are also necessary to improve the pts active participation in rehabilitative and medical POC. RECOMMENDATIONS 1. ST 3x/wk, 2wks PROGNOSIS: Good. Verbalized willingness to participate. High PLOF. PLAN OF CARE Short Term Goals 1. Pt will utilize error awareness and organization techniques for independent management of medications, finances, and personal schedule to optimize safe and efficient return to PLOF. 2. Pt will identify at least 3 possible barriers/challenges to discharge and generate multiple appropriate solutions when provided with min assist to improve active role in medical and rehabilitative plan of care. Long-Term Goals 1. The patient will demonstrate functional cognitive communication status for safety and maximized independence upon anticipated d/c to prior living environment w/ appropriate access to home and community resources. Thank you for this referral. Please call [phone] with any questions or concerns. Ashlie Herndon M.S., CCC-POLE CLASSIFIER [*] MTDD
[2019-04-29] MEDS: oxyCODONE HCL 5 MG CAP PO PRN ×2 (09:45→20:17)
--- NOTE | 2019-04-29 10:27 | NUR ---
Physical Therapy Impression Pt agreeable to therapy session after encouragement. SBA for STS transfers with RW with good sequencing demonstrated today. Ambulation x42' with RW and close w/c follow and CGA. Pt became increasingly dyspneic with ambulation, requesting to stop and reporting nausea. Spo2 dropped to 80% on 3L, returned to 95% on 4L. RN notified and vital signs assessed, all WNL on 3L O2 at end of session. Pt declined any further mobility intervention at this time. Physical Therapy Goals 1. Mod I bed mobility. 2. Mod I transfers. 3. Mod I gait x 50' with RW. 4. Ascend/descend 4 stairs without rail and CGA. 5. Pt able to negotiate ramp with SBA. 6. Pt able to pick object up off floor with SBA. Patient's Goals
[2019-04-29] MEDS ORDERED: FUROSEMIDE 40 MG TAB PO ONE (12:20)
--- NOTE | 2019-04-29 13:07 | NUR ---
14-day MDS completed with pt. C: 13, D: 03, E: no concerns, Q: referral made for pt to return to community setting with [facility]. No other needs identified, will continue to follow should additional DC needs arise.
--- NOTE | 2019-04-29 13:58 | Miscellaneous Provider Note ---
Miscellaneous Provider Note Note Nursing reported that she had increased edema in her lower extremities. She is chronically on Lasix 20mg QD. Treated with one time dose of 40mg and restarted her on her daily dose. Will check a BMP in the morning. Creatinine level is elevated, but at or better than prior baseline. GAIL ROCHA Apr 29, 2019 13:58
--- NOTE | 2019-04-29 15:15 | NUR ---
Occupational Therapy Impression Seated UB ther ex. SBA ambulation 2x20ft, x15ft, x40ft during functional ADLs. Improved sequencing of sit<>stands. Continued education for O2 tubing management as pt requires Mod A to manage O2. SpO2 WNL on 2L throughout tx. Occupational Therapy Goals 1) Pt will be Mod (I) UB/LB dressing. 2) Pt will be Mod (I) toilet task. 3) Pt will be Mod (I) grooming/hygiene. 4) Pt will be Min A shower task. 5) Pt Lio Index of ADLs score will improve by 2 points. Patient's Goal
[2019-04-29 19:50] VITALS: BP 130/73
[2019-04-29] MEDS: LOVASTATIN 20 MG TAB PO SCH (20:17)
[2019-04-29] MEDS: VERAPAMIL HCL SR 180 MG TABCR PO SCH (20:17)
[2019-04-30] MEDS: oxyCODONE HCL 5 MG CAP PO PRN ×3 (02:41→15:53)
[2019-04-30] MEDS: LEVOTHYROXINE SOD 0.05 MG TAB PO SCH (05:42)
[2019-04-30] MEDS: BUDESO/FORMOT 80/4.5 MCG 6.9GM INH SCH ×2 (05:55→17:23)
[2019-04-30 07:20] VITALS: BP 128/65
[2019-04-30] MEDS: POLYETHYLENE GLYCOL 17 GM PKT PO SCH (08:34)
[2019-04-30] MEDS: LOSARTAN POTASSIUM 50 MG TAB PO SCH (08:34)
[2019-04-30] MEDS: MONTELUKAST SODIUM 10 MG TAB PO SCH (08:35)
[2019-04-30] MEDS: CALCIUM CARBONATE/VITAMIN D3 PO SCH ×2 (08:35→17:14)
[2019-04-30] MEDS: DOCUSATE SODIUM 100 MG CAP PO SCH ×2 (08:35→21:00)
[2019-04-30] MEDS: ASPIRIN 81 MG ENTERIC COATED PO SCH (08:35)
[2019-04-30] MEDS ORDERED: FUROSEMIDE 20 MG TAB PO SCH (09:00)
--- NOTE | 2019-04-30 09:05 | NUR ---
Physical Therapy Impression Patient presents in room and has increased anxiety today. Patient transferred STS but needed extra time as she felt very nauseated and dizzy. I checked her blood pressure and it was 125/58 and her pulse was 71. I delayed therapy until 1013. Nursing was aware of all of this. On second visit patient transferred SBA STS. Patient then ambulated ~100 feet with one seated rest break with CGA and w/c follow for safety. Patient then ascended and descended 4 stairs with CGA and mod cues for managing her oxygen line with double railing. Patient continues to have increased anxiety with activity, ambulation, and stair training. Her anxiety is limiting her therapy. Patient is unsafe to be discharged to her home at this time. Patient had two therapy sessions today. [id number] then [id number]. Physical Therapy Goals 1. Mod I bed mobility. 2. Mod I transfers. 3. Mod I gait x 50' with RW. 4. Ascend/descend 4 stairs without rail and CGA. 5. Pt able to negotiate ramp with SBA. 6. Pt able to pick object up off floor with SBA. Patient's Goals
[2019-04-30] MEDS: ALBUTEROL/IPRATROPIUM 3 ML NEB NEB PRN (12:31)
[2019-04-30 16:50] VITALS: BP 113/63
--- NOTE | 2019-04-30 17:03 | NUR ---
ST IMPRESSION Cog/lang tx focused on deficits in functional problem solving. Initiated instruction in error awareness techniques (self-talk, reviewing work) and strategies to promote identification of identification of discharge barriers with generation of appropriate solutions to identified problems. Pt relied on total PRIMING MACHINE OPERATOR assistance for majority of tasks, became increasingly dyspneic throughout encounter with ultimate request to cease cognitive activity. Discussed encounter w/ RN, team aware. Medical/respiratory issues appear to be negatively impacting cognitive linguistic function. An element of anxiety may also be contributing to difficulty with task persistence. Rec ongoing HH ST at discharge.
[2019-04-30] MEDS: LOVASTATIN 20 MG TAB PO SCH (21:00)
[2019-04-30] MEDS: VERAPAMIL HCL SR 180 MG TABCR PO SCH (21:00)
[2019-05-01] MEDS: oxyCODONE HCL 5 MG CAP PO PRN (03:38)
[2019-05-01] MEDS: ACETAMINOPHEN 325 MG TAB PO PRN (04:29)
[2019-05-01] MEDS: LEVOTHYROXINE SOD 0.05 MG TAB PO SCH (05:50)
[2019-05-01] MEDS: BUDESO/FORMOT 80/4.5 MCG 6.9GM INH SCH ×2 (05:54→17:23)
[2019-05-01 07:15] VITALS: BP 101/57
[2019-05-01] MEDS: CALCIUM CARBONATE/VITAMIN D3 PO SCH ×2 (08:48→17:13)
[2019-05-01] MEDS: ASPIRIN 81 MG ENTERIC COATED PO SCH (08:48)
[2019-05-01] MEDS: DOCUSATE SODIUM 100 MG CAP PO SCH ×2 (08:48→21:00)
[2019-05-01] MEDS: MONTELUKAST SODIUM 10 MG TAB PO SCH (08:49)
[2019-05-01] MEDS: LOSARTAN POTASSIUM 50 MG TAB PO SCH (08:49)
[2019-05-01] MEDS: POLYETHYLENE GLYCOL 17 GM PKT PO SCH (08:50)
[2019-05-01] MEDS: ALBUTEROL/IPRATROPIUM 3 ML NEB NEB PRN (09:11)
--- NOTE | 2019-05-01 11:30 | NUR ---
Discussion with resident and lack of carryover of skills, refusing to get out of bed on the weekends, not working on skills except with therapy has her not progressing and therapy is discussing the possible need for local intermodal truck driver rehab. During conversation, resident noted to be breathing fast, she states that anxiety has always been a problem for her. Mundo Decker contacted and will see her. Resident stated "I guess I better start working more".
--- NOTE | 2019-05-01 11:47 | NUR ---
Physical Therapy Impression Patient was mod A sit to supine for B LE's. Supine to sit was min A. Max A for scooting up in bed. Patient presented at 84% on 3lpm. I turned her up to 4 for therapy and she came up to 89%. Patient was SBA for STS transfers with max cuing for sequencing and positioning of hands. Patient ambulated 50 feet with encouragement for distance. Patient attempted stairs but was unable to perform at this time due to her increased anxiety level. Patient is unsafe to go home at this time recommend intermediate rehab at this time. Physical Therapy Goals 1. Mod I bed mobility. 2. Mod I transfers. 3. Mod I gait x 50' with RW. 4. Ascend/descend 4 stairs without rail and CGA. 5. Pt able to negotiate ramp with SBA. 6. Pt able to pick object up off floor with SBA. Patient's Goals
--- NOTE | 2019-05-01 12:22 | NUR ---
Occupational Therapy Impression SBA ambulation 2x20ft, 2x15ft during functional ADLs. Requiring continued cues to manage O2, sequence sit<>stands and promote safety with problem solving. Close SBA/CGA retrieving clothing from closet, frequent cues to promote safety as pt desires to sit when no chair is behind. Lacking tolerance for safe household mobility without chair follow. SBA UB/LB dressing. Independent donning/doffing socks. SBA toileting. SBA oral care sinkfront. Pt continues to require close SBA/CGA for all tasks to promote safety. Pt may require 24/7 supervision upon d/c to promote safety and encourage continued engagement in ADLs/IADLs or discussed OT concerns with pt and possible need for long-term rehab. Occupational Therapy Goals 1) Pt will be Mod (I) UB/LB dressing. 2) Pt will be Mod (I) toilet task. 3) Pt will be Mod (I) grooming/hygiene. 4) Pt will be Min A shower task. 5) Pt Lio Index of ADLs score will improve by 2 points. Patient's Goal
--- NOTE | 2019-05-01 12:32 | OT ECF NOTE ---
Type of Note: 2-week progress note Primary Medical Diagnosis: Weakness s/p pelvic fracture Occupational Therapy Evaluation Date: 04/17/19 SUBJECTIVE: Prior Hospitalization: [facility] 04/16/19-04/17/19 Prior Level of Function: Independent with ADLs/IADLs. Ambulating with a cane. Pt does not drive. Prior Living Status: Bi-level house Spouse Assist by family Community Services: No known needs Home Accessibility: Stairs with rails All needs on one level Tub/shower combination Equipment Owned: Cane Medical Complications/Past Medical History: Please refer to EMR Psychosocial Support: Supportive family Pain Scale (0-10): Significant pain with mobility, no numerical rating provided. Pt demonstrates anxiety and increased work of breathing with all tasks during tx. Frequent encouragement and relaxation techniques provided. OBJECTIVE: Strength: MMT: Right Left Shoulder Flexion WFL WFL Elbow Flexion WFL WFL Wrist Extension WFL WFL Sales Representative [employer] WFL WFL (5= normal, 4= good, 3= fair, 2= poor, 1= trace) ROM: Both upper extremities, WFL Sensation: No paraesthesia reported Functional Transfer: Assistive Device: Front wheeled walker, Gait belt Transfer Ability: SBA/CGA ADL: Upper body dressing: Assistive device: None-Occasional cues for safety and management of O2 tubing Upper body dressing ability: SBA Lower body dressing: Assistive device: None Lower body dressing ability: SBA Toileting: Assistive device: Occasional v/c's for sequencing hygiene and sit<>stands. Toileting ability: SBA Grooming/hygiene: Assistive device: Standing with w/c near as pt desires to sit rapidly Grooming ability: SBA Bathing: Assistive device: Bathing ability: N/T Standardized Assessment: Lio Index of Activities of Daily Livin/20 upon initial evaluation (04/17/19). at 2-week progress note (05/01/19). ASSESSMENT: Kaylee continues to require 1 assist for ADLs and frequent cues for safety and encouragement to engage in tasks. At OF, she was largely independent with ADLs/IADLs. She will benefit from continued skilled OT services to improve activity tolerance and optimize independence for engagement in ADLs. Problem List/Current Limitations: Pain Decreased activity tolerance Generalized weakness Short Term Goals: 1) Pt will be Mod (I) UB/LB dressing. Not Met. 2) Pt will be Mod (I) toilet task. Not Met. 3) Pt will be Mod (I) grooming/hygiene. Not Met. 4) Pt will be Min A shower task. Not Met. 5) Pt Lio Index of ADLs score will improve by 2 points. Not Met. Custodial Goals: Pt may benefit from long-term rehab or 16/04 supervision Patient Goals: Return home Rehabilitation Prognosis: Good Barriers to Discharge: Pain PLAN: The patient will benefit from skilled occupational therapy services 5 times per week for 2 weeks including: Ther ex ADL training Safety training Ther act IADL training Home assessment Transfer training Adaptive equip training Bed mobility Energy conservation Thank you for this referral. If you have any questions, concerns, or comments about this report or plan, please contact me at . Mary Herndon MS, OTR/L Occupational Therapist REGGIE
--- NOTE | 2019-05-01 13:21 | PT ECF NOTE ---
Type of Note: Progress Note Primary Medical Diagnosis: R) pelvic fracture Physical Therapy Evaluation Date: 04/17/2019 SUBJECTIVE: Prior Hospitalization: [facility] Med/Surg 04/14-04/17/19 Prior Level of Function: Pt reports ambulating with a cane prior to fall. Pt reports I/Mod I with other functional mobility. Prior Living Status: Bi-level house, Spouse, Assist by family, all needs on 1 level Community Services: No known needs Home Accessibility: 2 stairs with rail to enter the front, 2 stairs without rails to enter through the garage, All needs on one level, Tub/shower combination Equipment Owned: Cane Medical Complications/Past Medical History: See EMR Psychosocial Support: Supportive spouse and daughters. Pt's daughters live in [facility] Pain Scale (0-10): Pt reporting severe pain during PT eval. OBJECTIVE: Bed Mobility: Min assist for R) LE supine to sit; Mod assist for B) LE with sit to supine Transfers: CGA Assistive Device: Front wheeled walker Gait: Pt has previously been able to tolerate 125' ambulation on 04/28 but has decreased since then. Pt also completed up/down 4 stairs on 2 separate occasions previously, but declined to attempt them today. Pt's level of anxiety and shortness of breath is contributing to decreased progression of functional mobility. ASSESSMENT: Pt continues to experience difficulty with progression of ambulation and functional mobility. Pt is limited by anxiety and shortness of breath with notable decrease SpO2 in conjunction with this. Pt has had a chest x-ray today and will continue to progress as tolerated through further rehab. Problem List/Current Limitations: Pain, Decreased activity tolerance, Decreased strength, Decreased balance, Generalized weakness Short Term Goals: (progressing) 1. Mod I bed mobility. 2. Mod I transfers. 3. Mod I gait x 50' with RW. 4. Ascend/descend 4 stairs without rail and CGA. 5. Pt able to negotiate ramp with SBA. 6. Pt able to pick object up off floor with SBA. Overhead Irrigator Goals: Return home Patient Goals: Return home Rehabilitation Prognosis: Fair Barriers for Discharge: increased pain PLAN: The patient will benefit from skilled physical therapy services 5 times per week for 2 weeks including: Therapeutic Exercise, Therapeutic Activities, Transfer Training, Gait Training, Stair Training, Manual Therapy, ADL's, Safety Training, Neuromuscular Re-educ., Pt/Caregiver Training, Bed Mobility Thank you for this referral. If you have any questions, concerns, or comments about this report or plan, please contact me at . H. Porsha Benson, PT, MPT, [facility]
[2019-05-01 13:26] LABS: PLATELET COUNT, AUTOMATED 313 K/uL (150-450)
--- NOTE | 2019-05-01 14:20 | RADIOLOGY IMAGING REPORT ---
FACILITY: [facility] PATIENT NAME: Kaylee Almendarez : 1935 MR: [id number] V: [id number] EXAM DATE: ORDERING PHYSICIAN: BAKARI MILLER TECHNOLOGIST: Location: [facility] Patient: Kaylee Almendarez : 1935 Visit/Account:[id number] Date of Sevice: 05/01/2019 Exam type: CHEST SINGLE AP History: SOB, cough Comparison: April 14, 2019. Findings: The lungs are free of acute effusions, infiltrates or edema. The cardiac silhouette is enlarged but unchanged. There are old right-sided rib fractures present IMPRESSION: 1. No acute cardiopulmonary process is seen Report Dictated By: Huong Griffith MD at 05/01/2019 2:10 PM Report E-Signed By: Huong Griffith MD at 05/01/2019 2:11 PM WSN:[email or web address]
[2019-05-01] MEDS ORDERED: DIAZEPAM 5 MG TAB PO PRN (15:00)
--- NOTE | 2019-05-01 17:04 | NUR ---
ACTIVITIES: pt. refused activities today.
[2019-05-01 17:38] VITALS: BP 110/60
[2019-05-01] MEDS: LOVASTATIN 20 MG TAB PO SCH (21:00)
[2019-05-01] MEDS: VERAPAMIL HCL SR 180 MG TABCR PO SCH (21:00)
[2019-05-02] MEDS: oxyCODONE HCL 5 MG CAP PO PRN ×2 (02:16→14:28)
[2019-05-02] MEDS: BUDESO/FORMOT 80/4.5 MCG 6.9GM INH SCH ×2 (05:53→17:23)
[2019-05-02] MEDS: LEVOTHYROXINE SOD 0.05 MG TAB PO SCH (06:04)
[2019-05-02 07:11] VITALS: BP 134/69
[2019-05-02] MEDS: DOCUSATE SODIUM 100 MG CAP PO SCH ×2 (08:41→20:42)
[2019-05-02] MEDS: CALCIUM CARBONATE/VITAMIN D3 PO SCH ×2 (08:41→17:13)
[2019-05-02] MEDS: ASPIRIN 81 MG ENTERIC COATED PO SCH (08:41)
[2019-05-02] MEDS: MONTELUKAST SODIUM 10 MG TAB PO SCH (08:41)
[2019-05-02] MEDS: POLYETHYLENE GLYCOL 17 GM PKT PO SCH (08:41)
[2019-05-02] MEDS: SPIRONOLACTONE 25 MG TAB PO SCH (08:42)
[2019-05-02] MEDS: FUROSEMIDE 20 MG TAB PO SCH (08:42)
--- NOTE | 2019-05-02 11:37 | NUR ---
Physical Therapy Impression Pt continues to reports high anxiety levels which limit tolerance to functional mobility. SBA for transfers with use of RW. PT instruction for negotiation of 2" platform stair within // bars. PT provided demonstration. Pt completed asc/desc short stair x2 reps with close CGA. Pt with good tolerance, but highly limited by anxiety and dyspnea with stair negotiation. SpO2 varied from 86-88% on 4L. Ambulation x100' at end of session, pt demonstrating improved step through gait. Physical Therapy Goals 1. Mod I bed mobility. 2. Mod I transfers. 3. Mod I gait x 50' with RW. 4. Ascend/descend 4 stairs without rail and CGA. 5. Pt able to negotiate ramp with SBA. 6. Pt able to pick object up off floor with SBA. Patient's Goals
[2019-05-02] MEDS: ALBUTEROL/IPRATROPIUM 3 ML NEB NEB PRN (12:56)
--- NOTE | 2019-05-02 13:54 | Hospitalist Progress Note ---
Subjective Progress Notes Subjective Nursing staff and PT have concerns for SOB. Patient denies CP or SOB at time of exam. She reports she did have nausea the day prior, but otherwise denies any complaints. Patient Complains of: Cardiovascular: No: Chest Pain Respiratory: No: Shortness of Breath Physical Exam Vital Signs Date Time Temp Pulse Resp B/P (MAP) Pulse Ox O2 Delivery O2 Flow Rate FiO2 05/02/19 13:01 75 18 05/02/19 12:56 94 Nasal Cannula 3.0 05/02/19 07:11 98.3 134/69 (90) Intake and Output 05/02/19 01:03 Intake Total 660 ml Balance 660 ml Intake Oral 660 ml # Voids 3 General Appearance: Alert, Awake, No Acute Distress, Afebrile Neuro: No Gross deficits Cardiovascular: Regular Rate and Rhythm Respiratory: No Respiratory Distress, Other (sounds congested throughout bilateral lung frazier) GI: Soft and Non-Tender Extremities: Edema (3+pitting edema bilateral lower extremities) Psych: Appropriate Mood & Affect Result Diagram: 05/01/19 1246 05/01/19 1246 Assessment and Plan Problems: (1) Pubic ramus fracture Status: Acute Assessment & Plan: She presented with right hip pain after fall. She was found to have right superior and inferior pubic ramus fracture. Receiving Oxycodone and Tylenol prn for pain control, she states that pain is well controlled. PT/OT is working with her and recommended further rehab for strengthening so she was transferred to [facility]. Fracture is non operable, per Dr. Gamble. (2) Edema Assessment & Plan: Bilateral lower extremity edema, recent concerns for SOB. Will obtain ECHO, also will add Spironolactone and Lasix for elevated BNP. Will recheck labs Sunday. Await ECHO results. CXR shows no acute processes. (3) Anemia Status: Acute Assessment & Plan: Transfused 2 units PRBC's on 04/16. H&H improved on this mornings labs. No obvious bleeding. Pt has remained asymptomatic. Will continue to monitor. Labs stable. (4) COPD (chronic obstructive pulmonary disease) Status: Chronic Assessment & Plan: Continue chronic Symbicort and albuterol/Duonebs prn. She is chronically on 3L oxygen at baseline. The patient's O2 requirement is stable and she has no current fever. (5) Hypertension Status: Chronic Assessment & Plan: Continue chronic Losartan and Verapamil with hold parameters. Will continue to hold Chlorthalidone for now, as Blood Pressure had been stable without it. (6) Hypothyroidism Status: Chronic Assessment & Plan: Continue chronic Levothyroxine. (7) Aortic valve stenosis Status: Chronic Assessment & Plan: Patient of Dr. Gomez. Recent echo shows moderate aortic valve stenosis. Will continue to be conservative with any fluid needs. No issues noted with blood transfusion on 04/16. (8) CKD (chronic kidney disease) Status: Chronic Assessment & Plan: Baseline creatinine is 1.7. Her creatinine was initially slightly elevated from baseline on admission, but has improved. Will monitor periodically. (9) Confusion Status: Acute Assessment & Plan: Pt seems more alert. She has been able to answer questions appropriately. (10) Chronic pain Status: Chronic Assessment & Plan: She denies any chronic pain other than arthritic pain, for which she takes Ibuprofen. She denies taking Oxycodone, and agrees that she does not take any other pain medications at home. Pt states she is having no pain except for while transferring, and then it is manageable with current pain regimen. (11) Rash Status: Acute Assessment & Plan: Only over her back. Improved with soda linens. Will change hydrocortisone cream to prn. BAKARI MILLER CENTRAL LAB TECHNICIAN May 02, 2019 13:54
[2019-05-02 14:15] VITALS: BP 125/71
--- NOTE | 2019-05-02 14:22 | NUR ---
Occupational Therapy Impression Pt requiring extensive encouragement to engage in OT tx. SpO2 WNL on 3L at rest. SpO2 86% on 3L with activity as pt becomes anxious and work of breathing increases. CGA tub transfer with extended tub transfer bench. Pt adamantly refusing further tx. Discussed concerns for pt's level of initiation with ADLs at home due to significant encouragement required by OT. Pt with with no comment. Pt may be require long-term rehab or / supervision to ensure continued engagement in ADLs/mobility. Occupational Therapy Goals 1) Pt will be Mod (I) UB/LB dressing. 2) Pt will be Mod (I) toilet task. 3) Pt will be Mod (I) grooming/hygiene. 4) Pt will be Min A shower task. 5) Pt Lio Index of ADLs score will improve by 2 points. Patient's Goal
[2019-05-02] MEDS ORDERED: LEVALBUTEROL 1.25 MG/3 ML NEB NEB PRN (14:30)
[2019-05-02] MEDS ORDERED: LEVALBUTEROL 1.25 MG/3 ML NEB ONE (14:33)
[2019-05-02] MEDS ORDERED: ALBUTEROL 8 GM INHALER INH PRN (14:45)
[2019-05-02] MEDS ORDERED: predniSONE 20 MG TAB PO SCH (15:05)
--- NOTE | 2019-05-02 15:09 | RADIOLOGY IMAGING REPORT ---
FACILITY: [facility] PATIENT NAME: Kaylee Almendarez : 1935 MR: [id number] V: [id number] EXAM DATE: ORDERING PHYSICIAN: BAKARI MILLER TECHNOLOGIST: Location: [facility] Patient: Kaylee Almendarez : 1935 Visit/Account:[id number] Date of Sevice: 05/02/2019 Exam type: CHEST SINGLE AP History: SOB, Cough Comparison: May 01, 2019. Findings: The lungs are free of acute effusions, infiltrates or edema. There is no evidence of a pneumothorax or pneumomediastinum. The cardiac silhouette is enlarged but unchanged. The trachea is in midline. There appears to be an old right-sided rib fracture IMPRESSION: 1. Cardiomegaly unchanged No evidence of acute pulmonary consolidation Report Dictated By: Huong Griffith MD at 05/02/2019 3:00 PM Report E-Signed By: Huong Griffith MD at 05/02/2019 3:01 PM WSN:[email or web address]
[2019-05-02] MEDS ORDERED: methylPREDNIS SUCC 125 MG/2ML IVP ONE (15:30)
--- NOTE | 2019-05-02 16:02 | Miscellaneous Provider Note ---
Miscellaneous Provider Note Note I was called to [facility] for evaluation of patient. She was noted to have tachypnea, SOB and cough after working with physical therapy. She reports she had difficulty breathing. Her vital signs were WNL,except respirations were at 28. She had noticeable cough with sputum production. She has noted history of COPD. She reports she has required steroids for in the past. Lung sounds were very tight upon auscultation. She also had inspiratory and expiratory wheezing. She was given a nebulizer stat and chest x-ray was called. Her chest x-ray was unchanged and showed no acute processes. She will be treated for COPD exacerbation. We will start IV Solu-Medrol. Will continue to follow closely. BAKARI MILLER May 02, 2019 16:02
[2019-05-02 16:19] VITALS: BP 113/66
[2019-05-02] MEDS: ALBUTEROL/IPRATROPIUM 3 ML NEB NEB SCH (17:23)
[2019-05-02] MEDS ORDERED: FUROSEMIDE 20 MG/2 ML VIAL IVP ONE (18:45)
[2019-05-02] MEDS: LOVASTATIN 20 MG TAB PO SCH (20:42)
[2019-05-03] MEDS ORDERED: methylPREDNIS SUCC 125 MG/2ML IVP SCH (05:00)
[2019-05-03] MEDS: LEVOTHYROXINE SOD 0.05 MG TAB PO SCH (05:29)
[2019-05-03] MEDS: ACETAMINOPHEN 325 MG TAB PO PRN ×2 (05:29→20:28)
[2019-05-03] MEDS: ALBUTEROL/IPRATROPIUM 3 ML NEB NEB SCH ×4 (05:36→17:17)
[2019-05-03] MEDS: BUDESO/FORMOT 80/4.5 MCG 6.9GM INH SCH ×2 (05:36→17:18)
[2019-05-03 07:24] LABS: PLATELET COUNT, AUTOMATED 279 K/uL (150-450)
[2019-05-03 08:20] VITALS: BP 108/57
[2019-05-03 08:45] VITALS: BP 99/51
[2019-05-03] MEDS: SPIRONOLACTONE 25 MG TAB PO SCH (08:52)
[2019-05-03] MEDS: FUROSEMIDE 20 MG TAB PO SCH (08:52)
[2019-05-03] MEDS: MONTELUKAST SODIUM 10 MG TAB PO SCH (08:53)
[2019-05-03] MEDS: CALCIUM CARBONATE/VITAMIN D3 PO SCH ×2 (08:53→17:43)
[2019-05-03] MEDS: POLYETHYLENE GLYCOL 17 GM PKT PO SCH (08:53)
[2019-05-03] MEDS: ASPIRIN 81 MG ENTERIC COATED PO SCH (08:53)
[2019-05-03] MEDS: DOCUSATE SODIUM 100 MG CAP PO SCH ×2 (08:53→20:28)
[2019-05-03 10:10] VITALS: BP 101/51
[2019-05-03] MEDS: oxyCODONE HCL 5 MG CAP PO PRN (10:22)
[2019-05-03 15:55] VITALS: BP 106/45
[2019-05-03] MEDS: LOVASTATIN 20 MG TAB PO SCH (20:28)
[2019-05-04] MEDS: ALBUTEROL/IPRATROPIUM 3 ML NEB NEB SCH ×4 (05:55→17:10)
[2019-05-04] MEDS: BUDESO/FORMOT 80/4.5 MCG 6.9GM INH SCH ×2 (05:55→17:10)
[2019-05-04] MEDS: LEVOTHYROXINE SOD 0.05 MG TAB PO SCH (06:05)
[2019-05-04 07:45] VITALS: BP 117/60
[2019-05-04] MEDS: POLYETHYLENE GLYCOL 17 GM PKT PO SCH (09:00)
[2019-05-04] MEDS: SPIRONOLACTONE 25 MG TAB PO SCH (09:00)
[2019-05-04] MEDS ORDERED: predniSONE 20 MG TAB PO SCH (09:00)
[2019-05-04] MEDS: FUROSEMIDE 20 MG TAB PO SCH (09:00)
[2019-05-04 09:08] VITALS: BP 98/43
[2019-05-04] MEDS: MONTELUKAST SODIUM 10 MG TAB PO SCH (09:10)
[2019-05-04] MEDS: ASPIRIN 81 MG ENTERIC COATED PO SCH (09:10)
[2019-05-04] MEDS: CALCIUM CARBONATE/VITAMIN D3 PO SCH ×2 (09:10→17:39)
[2019-05-04] MEDS: DOCUSATE SODIUM 100 MG CAP PO SCH ×2 (09:11→20:44)
[2019-05-04] MEDS: ACETAMINOPHEN 325 MG TAB PO PRN ×2 (10:18→20:44)
[2019-05-04] MEDS: oxyCODONE HCL 5 MG CAP PO PRN (13:57)
[2019-05-04 15:50] VITALS: BP 113/54
[2019-05-04] MEDS: LOVASTATIN 20 MG TAB PO SCH (20:44)
[2019-05-05] MEDS: BUDESO/FORMOT 80/4.5 MCG 6.9GM INH SCH ×2 (05:32→17:20)
[2019-05-05] MEDS: ALBUTEROL/IPRATROPIUM 3 ML NEB NEB SCH ×4 (05:32→17:20)
[2019-05-05] MEDS: LEVOTHYROXINE SOD 0.05 MG TAB PO SCH (05:40)
[2019-05-05 08:20] VITALS: BP 142/72
[2019-05-05] MEDS: POLYETHYLENE GLYCOL 17 GM PKT PO SCH (08:56)
[2019-05-05] MEDS: predniSONE 20 MG TAB PO SCH (08:56)
[2019-05-05] MEDS: MONTELUKAST SODIUM 10 MG TAB PO SCH (08:56)
[2019-05-05] MEDS: ASPIRIN 81 MG ENTERIC COATED PO SCH (08:56)
[2019-05-05] MEDS: DOCUSATE SODIUM 100 MG CAP PO SCH ×2 (08:56→20:23)
[2019-05-05] MEDS: CALCIUM CARBONATE/VITAMIN D3 PO SCH ×2 (08:56→17:07)
--- NOTE | 2019-05-05 10:27 | NUR ---
Physical Therapy Impression Pt reports that she feels "better today". SBA for transfers with RW. Ambulation x 90' and 50' with use of Rw and SBA. Pt required seated rest break in between ambulation bouts. SpO2 87% on 3L via oxymask with mobility. PT instruction to asc/desc 4 stairs with R) railing and step to gait pattern. Pt completed with CGA and good tolerance to WB through R) LE. Pt expressed increased pain and anxiety with stair negotiation, but with good tolerance. Continue with POC. Physical Therapy Goals 1. Mod I bed mobility. 2. Mod I transfers. 3. Mod I gait x 50' with RW. 4. Ascend/descend 4 stairs without rail and CGA. 5. Pt able to negotiate ramp with SBA. 6. Pt able to pick object up off floor with SBA. Patient's Goals
--- NOTE | 2019-05-05 10:55 | NUR ---
Occupational Therapy Impression Pt. performed bed mobility with [place] and dressing activities with [place]. Pt. also performed grooming and oral care activities, seated, with EC[place]A. Continue with POC. Occupational Therapy Goals 1) Pt will be Mod (I) UB/LB dressing. 2) Pt will be Mod (I) toilet task. 3) Pt will be Mod (I) grooming/hygiene. 4) Pt will be Min A shower task. 5) Pt Lio Index of ADLs score will improve by 2 points. Patient's Goal
--- NOTE | 2019-05-05 15:29 | NUR ---
ST IMPRESSION Cog/lang tx cont w/ focus on deficits in functional problem solving and prospective thinking skills. Cognitive organization for identification of discharge barriers and generation of appropriate solutions much improved. Pt required mod graded to min BRAND DIRECTOR cues to support mental flexibility and task progression. Pt verbalizes high motivation to return home; however, execution of verbalized plan continues to be limited by respiratory issues coupled with hx of anxiety when participating in medical and rehabilitative POC. Plan to analyze potential for return to independence with med mgmt via completion of Pill Box Test next encounter. Rec ongoing HH ST at d/c.
[2019-05-05 15:45] VITALS: BP 125/65
--- NOTE | 2019-05-05 16:45 | Hospitalist Progress Note ---
Subjective Progress Notes Subjective No acute events since last exam. She is ambulating with staff. She seems to be doing better and tolerating the steroids well. Patient Complains of: Neurological: No: Syncope, Confusion Cardiovascular: No: Chest Pain, Palpitations Respiratory: No: Congestion, Shortness of Breath Physical Exam Vital Signs Date Time Temp Pulse Resp B/P (MAP) Pulse Ox O2 Delivery O2 Flow Rate FiO2 05/05/19 15:45 96.9 62 24 125/65 (85) 97 Nasal Cannula 3.0 Intake and Output 05/05/19 07:03 Intake Total 1184 ml Balance 1184 ml Intake Oral 1184 ml # Voids 4 # Bowel Movements 1 General Appearance: Alert, Awake, No Acute Distress Respiratory: No Respiratory Distress Psych: Appropriate Mood & Affect Result Diagram: 05/03/1970305/03/19703 Assessment and Plan Problems: (1) Pubic ramus fracture Status: Acute Assessment & Plan: She presented with right hip pain after fall. She was found to have right superior and inferior pubic ramus fracture. Receiving Oxycodone and Tylenol prn for pain control, she states that pain is well controlled. PT/OT is working with her and recommended further rehab for strengthening so she was transferred to [facility]. Fracture is non operable, per Dr. Gamble. (2) Edema Assessment & Plan: Bilateral lower extremity edema, recent concerns for SOB. CXR shows no acute processes. Echo done on 05/02. Awaiting ECHO results. Will recheck labs Sunday. (3) Anemia Status: Acute Assessment & Plan: Transfused 2 units PRBC's on 04/16. H&H improved on this mornings labs. No obvious bleeding. Pt has remained asymptomatic. Will continue to monitor. Labs stable. (4) COPD (chronic obstructive pulmonary disease) Status: Chronic Assessment & Plan: Continue chronic Symbicort and albuterol/Duonebs prn. She is chronically on 3L oxygen at baseline. The patient's O2 requirement is stable and she has no current fever. (5) Hypertension Status: Chronic Assessment & Plan: Continue chronic Losartan and Verapamil with hold parameters. Will continue to hold Chlorthalidone for now, as Blood Pressure had been stable without it. (6) Hypothyroidism Status: Chronic Assessment & Plan: Continue chronic Levothyroxine. (7) Aortic valve stenosis Status: Chronic Assessment & Plan: Patient of Dr. Gomez. Recent echo shows moderate aortic valve stenosis. Will continue to be conservative with any fluid needs. No issues noted with blood transfusion on 04/16. (8) CKD (chronic kidney disease) Status: Chronic Assessment & Plan: Baseline creatinine is 1.7. Her creatinine was initially slightly elevated from baseline on admission, but has improved. Will monitor periodically. (9) Confusion Status: Acute Assessment & Plan: Pt seems more alert. She has been able to answer questions appropriately. (10) Chronic pain Status: Chronic Assessment & Plan: She denies any chronic pain other than arthritic pain, for which she takes Ibuprofen. She denies taking Oxycodone, and agrees that she does not take any other pain medications at home. Pt states she is having no pain except for while transferring, and then it is manageable with current pain regimen. (11) Rash Status: Acute Assessment & Plan: Only over her back. Improved with soda linens. Will change hydrocortisone cream to prn. GAIL ROCHA May 05, 2019 16:45
[2019-05-05] MEDS: LOVASTATIN 20 MG TAB PO SCH (20:23)
[2019-05-05] MEDS: ACETAMINOPHEN 325 MG TAB PO PRN (23:23)
[2019-05-06] MEDS: ALBUTEROL/IPRATROPIUM 3 ML NEB NEB SCH ×4 (05:33→17:24)
[2019-05-06] MEDS: BUDESO/FORMOT 80/4.5 MCG 6.9GM INH SCH ×2 (05:34→17:24)
[2019-05-06] MEDS: LEVOTHYROXINE SOD 0.05 MG TAB PO SCH (05:42)
[2019-05-06 07:20] VITALS: BP 131/68
[2019-05-06 07:28] LABS: PLATELET COUNT, AUTOMATED 311 K/uL (150-450)
[2019-05-06] MEDS: CALCIUM CARBONATE/VITAMIN D3 PO SCH ×2 (08:38→16:45)
[2019-05-06] MEDS: MONTELUKAST SODIUM 10 MG TAB PO SCH (08:38)
[2019-05-06] MEDS: POLYETHYLENE GLYCOL 17 GM PKT PO SCH (08:38)
[2019-05-06] MEDS: DOCUSATE SODIUM 100 MG CAP PO SCH ×2 (08:39→20:32)
[2019-05-06] MEDS: ASPIRIN 81 MG ENTERIC COATED PO SCH (08:39)
[2019-05-06] MEDS: predniSONE 20 MG TAB PO SCH (08:40)
[2019-05-06] MEDS: CETIRIZINE HCL 10 MG TAB PO SCH (08:40)
--- NOTE | 2019-05-06 09:30 | NUR ---
Physical Therapy Impression Pt has not had pain medication, as it is currently a PRN medication and when pt is at rest she does not indicate pain. It may, however, be beneficial to medicate with Tylenol prior to activities or possibly as a scheduled med to increase pt's willingness to mobilize more throughout the day once home. Pt completed up/down 4 steps with rail and SBA/VC's. Pt did require assistance to manage O2 tubing safely while she concentrates on her technique with ambulation and stairs. Pt is agreeable to utilize FWW in her home environment. Pt completed TUG test in 45 seconds. Physical Therapy Goals 1. Mod I bed mobility. 2. Mod I transfers. 3. Mod I gait x 50' with RW. 4. Ascend/descend 4 stairs without rail and CGA. 5. Pt able to negotiate ramp with SBA. 6. Pt able to pick object up off floor with SBA. Patient's Goals
[2019-05-06] MEDS: ACETAMINOPHEN 325 MG TAB PO PRN ×2 (10:47→20:32)
--- NOTE | 2019-05-06 11:47 | Medical Nutrition Therapy ---
Nutrition Anthropometrics Height (Inches): 60 ((From visit on 12/20/12)) Weight (Pounds): 156 Weight (Calculated Kilograms): 70.902 BMI: 30.1 [place] Nutrition Score: Probably Inadequate [place] Nutrition Risk Score: 17 Dietary Referral Nutrition Risk Factors: Nutrition Risk Comment: Physical Findings Physical Appearance: Obese BMI 30-39 Skin Appearance Skin Appearance: Edema Edema Location Modifier: Left Edema Location: Lower Extremity Type of Edema: Degree of Edema: 1+ Gastrointestinal Symptoms GI Symtoms: Constipation Tube Present: Bowel Sounds: Recent Bowel Pattern: Stool Characteristics: Nutritional Diagnosis Nutritional Risk Acuity 3: Fx & > 80 yrs Past Medical History: COPD, HTN, CKD, Hypothyroid, CKD, Chronic Pain Nutritional Acuity: 3-Mild Energy Requirement: 1442 ([place] [address] Jeor (Activity Factor 1.3)) Protein Requirement: 73 (1-1.2gkg (73-87g/day)) Fluid Requirement: 2190 (30mL/kg) Nutrition Intervention: Encourage intake, Vit/min support Nutrition Monitoring & Eval Nutrition Goals: Eat 75-100% Meal Nutrition Follow-Up: Fair Intake RD Patient Assessment Time: [address] Assessment Type: RD Re-Assessment Patient Nutrition Acuity: 3-Mild Follow Up Date: May 13, 2019 Nutritional Comment: 04/18/19: Spoke with pt this afternoon, stated appetite has not been good here because she hasn't been moving around. Pt admitted to [facility] s/p pubic ramus fx. PMH includes COPD, HTN, Hypothyroid, CKD, Chronic Pain. Pertinent active rx include MOM, miralax, colace, oxycodone, and lovastatin. Ca/D3 supplement initiated. Pt has BLE non-pitting edema. Pt eating well average intake on ECF ~80% of meals. Requested new height and weight. Spoke with pt downstairs about importance of protein for healing. Will continue to follow and monitor appetite, weight, protein intake.JENIFER 04/21/19: Pt intake varies, from bites of meals to 100%. Wt is down slightly from 160 lbs on 04/18/19 to 154 lbs 04/21/19. Has BLE 1+ pitting edema. Recently started on ceftin for UTI. Recommend adding probiotic to preven antibiotic associated diarrhea. Will ask pt if she is willing to try Boost or a milkshake with beneprotein. Will continue to monitor intakes, weight, and encourage adequate protein intake.JENIFER 04/28/19: Pt states appetite is good. Average meal intake x 19 meals ~72%. Wt currently stable at 155 lbs on 04/25. BUN and Cre are elevated (CKD). Will continue to monitor intake, weight, appetite, and healing needs.JENIFER 05/06/19: Pt currently on CHF diet. Average meal intake over this past week ~76%. Pt wt is stable at 156 lbs. BUN and Cre elevated. Pertinent rx include oxycodone prn, MOM, colace. Taking vitamin D/calcium for healing of pubic ramus fx. Will continue to monitor intake and weight. Will educate pt on CHF diet.HYACINTH RAMÍREZ May 06, 2019 10:10
--- NOTE | 2019-05-06 11:53 | NUR ---
Oxygen Patient called for assistance to toilet and was found short of breath before she had even stood up, so this RN checked lines and found that, although the oxygen was on at the flow meter (3LPM), the tubing was not connected to the flow meter. Oxygen tubing was connected and oximeter procured and sats were found to be 84%. This RN had her wait until sats were over 92% (actually got up to 96%) before patient was then taken to the toilet, CGA with walker. Pt encouraged to breathe through her nose; she continues to breathe through her mouth as soon as she starts walking. Physical therapy advised this morning that patient has been mouth-breathing, and they have been using oxymask.
--- NOTE | 2019-05-06 12:28 | NUR ---
Occupational Therapy Impression SBA extended tub transfer with v/c's. SBA ambulation [id number] with RW. SpO2 94% on 3L. Pt progressing well towards goals. Much improved tolerance for activity this date. Pt has demonstrates appropriate (I) and tolerance for discharge home with services. Occupational Therapy Goals 1) Pt will be Mod (I) UB/LB dressing. 2) Pt will be Mod (I) toilet task. 3) Pt will be Mod (I) grooming/hygiene. 4) Pt will be Min A shower task. 5) Pt Lio Index of ADLs score will improve by 2 points. Patient's Goal
--- NOTE | 2019-05-06 14:54 | NUR ---
ACTIVITIES: Pt. refused activities today, told me she was fine with staying in her room with her and reading/watching tv, but was appreciative of being offered activities. I informed here I would be here for a few hours if she changed her mind but understood because she's had a busy afternoon with care conference.
--- NOTE | 2019-05-06 15:10 | NUR ---
ST IMPRESSION Completed pill box test. Results indicate pt would benefit from supervision/ assistance from spouse or home health for medication management, primarily due to weakness and shakiness in hands with difficulty opening bottles, grasping pills, and placing into pill box slots. Pt also exhibited single error during test completion, but recognized mistake and made indep correction. Pt acknowledged physical difficulty with managing pill bottles. Spouse present, agreed to facilitate completion at home. From a cog/lang standpoint, pt safe for d/c home with ongoing HH ST and supervision for med mgmt.
[2019-05-06 15:36] VITALS: BP 124/70
--- NOTE | 2019-05-06 15:38 | NUR ---
DC MDS completed with pt. C: 14, D: 04, E: no concerns, Q: referral made for pt to return to community setting with [facility]. No other needs identified, will continue to follow should additional DC needs arise.
[2019-05-06] MEDS: LOVASTATIN 20 MG TAB PO SCH (20:32)
[2019-05-07] MEDS: BUDESO/FORMOT 80/4.5 MCG 6.9GM INH SCH ×2 (05:36→18:11)
[2019-05-07] MEDS: ALBUTEROL/IPRATROPIUM 3 ML NEB NEB SCH ×4 (05:36→18:11)
[2019-05-07] MEDS: LEVOTHYROXINE SOD 0.05 MG TAB PO SCH (05:43)
[2019-05-07] MEDS: POLYETHYLENE GLYCOL 17 GM PKT PO SCH (09:00)
[2019-05-07 09:27] VITALS: BP 119/52
[2019-05-07] MEDS: CETIRIZINE HCL 10 MG TAB PO SCH (09:28)
[2019-05-07] MEDS: CALCIUM CARBONATE/VITAMIN D3 PO SCH ×2 (09:28→16:51)
[2019-05-07] MEDS: MONTELUKAST SODIUM 10 MG TAB PO SCH (09:28)
[2019-05-07] MEDS: ACETAMINOPHEN 325 MG TAB PO PRN ×2 (09:28→20:45)
[2019-05-07] MEDS: ASPIRIN 81 MG ENTERIC COATED PO SCH (09:28)
[2019-05-07] MEDS: DOCUSATE SODIUM 100 MG CAP PO SCH ×2 (09:29→20:45)
--- NOTE | 2019-05-07 14:26 | Hospitalist Depart ---
Discharge Summary Reason for Hosp/Final Diag: (1) Pubic ramus fracture Status: Acute Hospital Course & Plan: She presented with right hip pain after fall. She was found to have right superior and inferior pubic ramus fracture. She was using Oxycodone initially and transitioned to Tylenol prn for pain control, she states that pain is well controlled. PT/OT is working with her and recommended further rehab for strengthening so she was transferred to [facility]. Fracture is non operable, per Dr. Gamble. She will go home with home health and continue therapy. (2) Edema Hospital Course & Plan: Bilateral lower extremity edema, recent concerns for SOB. CXR shows no acute processes. Echo done on 05/02, show EF 70%, left ventricular hypertrophy, and aortic stenosis. Her verapamil was stopped secondary to hypotension and edema. Edema much improved. (3) Anemia Status: Acute Hospital Course & Plan: Transfused 2 units PRBC's on 04/16. H&H improved on labs. No obvious bleeding. Pt has remained asymptomatic. (4) COPD (chronic obstructive pulmonary disease) Status: Chronic Hospital Course & Plan: Continue chronic Symbicort and albuterol/Duonebs prn. She is chronically on 3L oxygen at baseline. The patient's O2 requirement is stable. She had COPD exacerbation while working with therapy on [facility]. She was given 5 days steroid burst and noticed improvement in breathing. She denies any SOB or cough now. (5) Hypertension Status: Chronic Hospital Course & Plan: She is on chronic treatment with Lasix, Chlorthalidone, Losartan and Verapamil. Her blood pressures have been decreased without treatment. Systolic BP ranging from 99-119 during admission. Recommend follow up with PCP in 1 week to recheck blood pressures. (6) Hypothyroidism Status: Chronic Hospital Course & Plan: Continue chronic Levothyroxine. (7) Aortic valve stenosis Status: Chronic Hospital Course & Plan: Patient of Dr. Gomez. Recent echo shows moderate aortic valve stenosis. During admission, we were conservative with any fluid needs. No issues noted with blood transfusion on 04/16. (8) CKD (chronic kidney disease) Status: Chronic Hospital Course & Plan: Baseline creatinine is 1.7. Her creatinine was init ially slightly elevated from baseline on admission, but has improved. (9) Confusion Status: Acute Hospital Course & Plan: Pt seems more alert. She has been able to answer questions appropriately. (10) Chronic pain Status: Chronic Hospital Course & Plan: She denies any chronic pain other than arthritic pain, for which she takes Ibuprofen. She denies taking Oxycodone, and agrees that she does not take any other pain medications at home. Pt states she is h aving no pain except for while transferring, and then it is manageable with current pain regimen. (11) Rash Status: Acute Hospital Course & Plan: Only over her back. Improved with soda linens. She was placed on hydrocortisone cream prn. Departure Latest Vital Signs Vital Signs 05/07/19 05/07/19 05/07/19 07:40 09:27 09:45 Temp 97.9 Pulse 60 Resp 20 B/P (MAP) 119/52 (74) Pulse Ox 98 O2 Delivery Nasal Cannula O2 Flow Rate 3.0 Weight (Pounds): 156 Weight (Ounces): 5.0 Result Diagram: 05/06/1970505/06/19705 Condition: Improved Discharge: Home, Home Health PT/OT Follow Up For: PT For Strengthening, OT For ADL's, PT Evaluation and Treat, ST Evaluation and Treat, OT Evaluation and Treat Home Health RN Follow Up For: Nursing Assessment Home Health CHIEF MEDICAL TECHNOLOGIST Follow Up For: ADL Assistance Discharge Instructions Home Meds Reported Medications Montelukast Sodium (MONTELUKAST SODIUM) 10 Mg Tablet, 1 TAB PO QDAY 04/16/19 Ipratropium/Albuterol Sulfate (IPRAT-ALBUT 0.5-3(2.5) MG/3 ML) 3 Ml Ampul.neb, 1 UNIT INH Q4H PRN for SHORTNESS OF BREATH 04/16/19 Cetirizine Hcl (ZYRTEC) 10 Mg Capsule, 10 MG PO QDAY PRN for ALLERGY SYMPTOMS, CAPSULE 04/28/16 Montelukast Sodium (SINGULAIR) 10 Mg Tablet, 1 TAB PO QDAY, TAB 04/21/16 Lovastatin (LOVASTATIN) 40 Mg Tablet, 40 MG PO HS 04/21/16 Budesonide/Formoterol Fumarate (SYMBICORT 80-4.5 MCG INHALER) 10.2 Gm Hfa.aer.ad, 2 PUFF IH BID 04/21/16 Aspirin (ASPIRIN EC) 81 Mg Tablet.dr, 81 MG PO QDAY, TAB 04/21/16 Albuterol Sulfate (PROVENTIL HFA) 6.7 Gm Inh, 1-2 PUFF INH Q4H, INH 04/21/16 Oxygen (Oxygen) 2 L Inha, 2 L INH PRN 12/20/12 Levothyroxine Sodium (Levothyroxine Sodium) 50 Mcg Tablet, 50 MCG PO QAM, 0 Refills 05/02/09 Discontinued Reported Medications Furosemide (FUROSEMIDE) 20 Mg Tablet, 1 TAB PO QDAY 04/16/19 Verapamil HCl (Verapamil Sr) 180 Mg Cap24h.pel, 180 MG PO HS 04/21/16 Oxycodone Hcl (ROXICODONE) 15 Mg Tablet, 10 MG PO 04/21/16 Losartan Potassium (LOSARTAN POTASSIUM) 50 Mg Tablet, 50 MG PO QDAY 04/21/16 Chlorthalidone (CHLORTHALIDONE) 25 Mg Tab, 25 MG FT, TAB 04/21/16 Diet: Regular Activity: As Tolerated, With Walker Special Instructions: Follow up with Primary Care Provider in 1 week. Take Tylenol for pain. Stop Taking Furosemide, Verapamil, Losartan, and Chlorthalidone. Copies to: FRANCI ECHEVARRIA MD ; Venous Thromboembolism Antithrombotics Is Pt On Any Antithrombotics?: No [id number] Certification Face to Face Home Health Certification Patient's Primary Care Provider: Franci Echevarria MD Institutional Provider conducted the [id number] encounter. Electronic Undersigning Physician Certifies Home Health. I certify that the patient has been under my care and that I had a [id number] encounter that meets the physician [id number] encounter requirements with this patient. This patient is home-bound due to safety issues and continues to require assistance with ADL's. I certify that based on my findings, that Nursing, Aides and the following Home Health services are medically necessary: Medical Necessity: Nursing, Rehab Date Face to Face Conducted: May 07, 2019 BAKARI MILLER May 07, 2019 14:26
--- NOTE | 2019-05-07 16:16 | NUR ---
Physical Therapy Impression Pt has met all PT goals and is ready for d/c from a mobility stand point. Physical Therapy Goals 1. Mod I bed mobility. 2. Mod I transfers. 3. Mod I gait x 50' with RW. 4. Ascend/descend 4 stairs without rail and CGA. 5. Pt able to negotiate ramp with SBA. 6. Pt able to pick object up off floor with SBA. Patient's Goals
[2019-05-07 16:35] VITALS: BP 121/68
[2019-05-07] MEDS: LOVASTATIN 20 MG TAB PO SCH (20:45)
[2019-05-08] MEDS: LEVOTHYROXINE SOD 0.05 MG TAB PO SCH (05:57)
[2019-05-08] MEDS: ALBUTEROL/IPRATROPIUM 3 ML NEB NEB SCH ×2 (06:12→10:16)
[2019-05-08] MEDS: BUDESO/FORMOT 80/4.5 MCG 6.9GM INH SCH (06:12)
[2019-05-08 07:45] VITALS: BP 146/77
[2019-05-08] MEDS: MONTELUKAST SODIUM 10 MG TAB PO SCH (09:10)
[2019-05-08] MEDS: CALCIUM CARBONATE/VITAMIN D3 PO SCH (09:10)
[2019-05-08] MEDS: POLYETHYLENE GLYCOL 17 GM PKT PO SCH (09:10)
[2019-05-08] MEDS: DOCUSATE SODIUM 100 MG CAP PO SCH (09:10)
[2019-05-08] MEDS: CETIRIZINE HCL 10 MG TAB PO SCH (09:10)
[2019-05-08] MEDS: ASPIRIN 81 MG ENTERIC COATED PO SCH (09:10)
--- NOTE | 2019-05-08 10:07 | PT ECF NOTE ---
Type of Note: Discharge Note Primary Medical Diagnosis: R) pelvic fracture Physical Therapy Evaluation Date: 04/17/2019 SUBJECTIVE: Prior Hospitalization: [facility] 04/14-04/17/19 Prior Level of Function: Pt reports ambulating with a cane prior to fall. Pt reports I/Mod I with other functional mobility. Prior Living Status: Bi-level house, Spouse, Assist by family, all needs on 1 level Community Services: D/C with [facility] Home Accessibility: 2 stairs with rail to enter the front, 2 stairs without rails to enter through the garage, All needs on one level, Tub/shower combination Equipment Owned: Cane; FWW Medical Complications/Past Medical History: See EMR Psychosocial Support: Supportive spouse and daughters. Pt's daughters live in [facility] Pain Scale (0-10): Pt notes that pain is now better managed with regular use of Tylenol. OBJECTIVE: Bed Mobility: Modified Indep Transfers: Modified indep Assistive Device: Front wheeled walker Gait: Pt able to complete ambulation with FWW and Mod indep for functional household distances. Pt addressed stairs with SBA/Mod indep and CG to manage O2 tubing in order to decrease risk of fall and to assist in decreasing pt's anxiety with this skill. ASSESSMENT: Pt/CG note that they are comfortable with pt's current level of functional household mobility. Pt indicates appropriate management of pain with regular Tylenol use and feels ready for discharge home. Short Term Goals: (Met) 1. Mod I bed mobility. 2. Mod I transfers. 3. Mod I gait x 50' with RW. 4. Ascend/descend 4 stairs without rail and CGA. 5. Pt able to negotiate ramp with SBA. 6. Pt able to pick object up off floor with SBA. Residential Goals: Return home Patient Goals: Return home Rehabilitation Prognosis: Fair Barriers for Discharge: None at this time PLAN: Pt to discharge home with assistance from for IADL's as before and have [facility] services to improve functional endurance for increased mobility within her home. Thank you for this referral. If you have any questions, concerns, or comments about this report or plan, please contact me at . H. Porsha Benson, PT, MPT, OMS MTDD
--- NOTE | 2019-05-08 10:29 | NUR ---
OCCUPATIONAL THERAPY Dressing Assistance: Independent Dressing Aid Required: None Bathing Assistance: CGA bathtub transfer with cues to sequence safely Bathing Equipment: Extended tub transfer bench Home Assessment: Completed-Recommendations provided to spouse Feeding Assistance: Independent Feeding Specialized Equipment: None Toilet Use: Independent Verbalizes Needs: Yes Understands Precautions: Yes Cooperative: Yes Family Teaching: Yes Occupational Therapy Comment: Spouse to assist with O2 tubing management
--- NOTE | 2019-05-08 10:34 | OT ECF NOTE ---
Type of Note: Discharge Note Primary Medical Diagnosis: Weakness s/p pelvic fracture Occupational Therapy Evaluation Date: 04/17/19 SUBJECTIVE: Prior Hospitalization: [facility] 04/16/19-04/17/19 Prior Level of Function: Independent with ADLs/IADLs. Ambulating with a cane. Pt does not drive. Prior Living Status: Bi-level house Spouse Assist by family Community Services: No known needs Home Accessibility: Stairs with rails All needs on one level Tub/shower combination Equipment Owned: Cane Medical Complications/Past Medical History: Please refer to EMR Psychosocial Support: Supportive family Pain Scale (0-10): Pt reporting improved pain control at discharge OBJECTIVE: Strength: MMT: Right Left Shoulder Flexion WFL WFL Elbow Flexion WFL WFL Wrist Extension WFL WFL Anatomy Teacher WFL WFL (5= normal, 4= good, 3= fair, 2= poor, 1= trace) ROM: Both upper extremities, WFL Sensation: No paraesthesia reported Functional Transfer: Assistive Device: Front wheeled walker Transfer Ability: Modified Independent with assist for O2 tubing management ADL: Upper body dressing: Assistive device: None Upper body dressing ability: Independent Lower body dressing: Assistive device: None Lower body dressing ability: Independent Toileting: Assistive device: None Toileting ability: Independent Grooming/hygiene: Assistive device: None Grooming ability: Independent Bathing: Assistive device: Extended tub transfer bench Bathing ability: SBA/CGA with v/c's for sequencing safe tub transfer with extended tub transfer bench. Standardized Assessment: Lio Index of Activities of Daily Livin/20 upon initial evaluation (04/17/19). 18/20 upon discharge (05/08/19). ASSESSMENT: Kaylee presented to [facility] requiring 1-2 assist for ADLs and an EZ lift for functional mobility with staff. She has met all skilled OT goals. A home evaluation was completed with appropriate recommendations provided. Spouse encouraged to obtain a RW and extended tub transfer bench-education and information for where to obtain provided. Short Term Goals: 1) Pt will be Mod (I) UB/LB dressing. GOAL MET 2) Pt will be Mod (I) toilet task. GOAL MET 3) Pt will be Mod (I) grooming/hygiene. GOAL MET 4) Pt will be Min A shower task. GOAL MET 5) Pt Lio Index of ADLs score will improve by 2 points. GOAL MET Assisted Goals: Return home with HomeHealth Patient Goals: Return home Rehabilitation Prognosis: Good Barriers to Discharge: Pain PLAN: The patient will discharge home with PT/OT/Speech and assist from spouse for IADLs. Thank you for this referral. If you have any questions, concerns, or comments about this report or plan, please contact me at . Mary Herndon MS, OTR/L Occupational Therapist REGGIE
== END 2019-05-08 10:30 | disposition home health service (06) | DRG 560 ==
LOC: UNDOADMIN 10:52 → ECF 10:52
PROVIDERS: ADMIT Internal Medicine; ATTEND Internal Medicine
DX: S32.511D Fracture of superior rim of right pubis, subsequent encounter for fracture with routine healing (principal); J44.1 Chronic obstructive pulmonary disease with (acute) exacerbation; N39.0 Urinary tract infection, site not specified; S32.591D Other specified fracture of right pubis, subsequent encounter for fracture with routine healing; I95.9 Hypotension, unspecified; I12.9 Hypertensive chronic kidney disease with stage 1 through stage 4 chronic kidney disease, or unspecified chronic kidney disease; N18.9 Chronic kidney disease, unspecified; E03.9 Hypothyroidism, unspecified; I35.0 Nonrheumatic aortic (valve) stenosis; G89.29 Other chronic pain; R21 Rash and other nonspecific skin eruption; Z66 Do not resuscitate; R60.9 Edema, unspecified
CPT/HCPCS: 36415; 71045; 81001; 82040; 82247; 82310; 82374; 82435; 82565; 82947; 83880; 84075; 84132; 84155; 84295; 84443; 84450; 84460; 84520; 85025; 87077; 87088; 87186; 92523; 93306; 94640; 97161; 97166; J1940; J2930; J7512; J7613